=== PATIENT | female | born 1960 | race Caucasian/White ===

== ENCOUNTER 2021-08-15 00:30 | Inpatient (IN) ==
[2021-08-15] MEDS ORDERED: DILAUDID INJ IVP PRN (01:09)
[2021-08-15] MEDS ORDERED: ZOFRAN INJ 4 MG VIAL ONE (01:14)
[2021-08-15] MEDS ORDERED: D5 1/2 NS 1,000 ML 1,000 ML IV ONE (01:15)
[2021-08-15] MEDS ORDERED: DILAUDID INJ ONE ×2 (01:15→15:39)
[2021-08-15] MEDS ORDERED: NS 100 ML IV + SPIKE MINIBAG* 100 ML IV ONE (01:16)
[2021-08-15] MEDS ORDERED: ZOSYN VIAL 3.375 GRAMS IV ONE (01:16)
[2021-08-15] MEDS: ZOFRAN INJ 4 MG VIAL IVP PRN ×2 (01:34→21:35)
[2021-08-15] MEDS: D5 1/2 NS 1,000 ML 1,000 ML IV SCH ×5 (01:34→23:31)
[2021-08-15] MEDS: ZOSYN VIAL 3.375 GRAMS 3.375 G in NS 100 ML IV + SPIKE MINIBAG* 100 ML IV SCH ×4 (01:35→21:00)
[2021-08-15 02:54] VITALS: BMI 23.1
[2021-08-15 06:32] LABS: BASOPHILS % (AUTO) 0.2 % (0.2-1.0); HEMOGLOBIN 12.3 g/dL (12.0-16.0); LYMPHOCYTES # (AUTO) 0.8 X10^3/uL (1.3-2.9); LYMPHOCYTES % (AUTO) 6.6 % (21.0-51.0); MEAN CORPUSCULAR HEMOGLOBIN 33.5 pg (27.0-34.0); MEAN CORPUSCULAR HGB CONC 34.1 g/dL (33.0-35.0); MEAN CORPUSCULAR VOLUME 98.2 fL (80.0-100.0); MEAN PLATELET VOLUME 10.5 fL (7.4-11.0); MONOCYTES # (AUTO) 1.3 x10^3/uL (0.3-0.8); MONOCYTES % (AUTO) 11.1 % (0.0-13.0); NEUTROPHILS # (AUTO) 9.8 x10^3/uL (2.2-4.8); NEUTROPHILS % (AUTO) 82.1 % (42.0-75.0); RED BLOOD COUNT 3.67 X10^6/uL (3.5-5.4); RED CELL DISTRIBUTION WIDTH 15.1 % (11.6-16.5); WHITE BLOOD COUNT 11.9 X10^3/uL (3.6-10.0)
--- NOTE | 2021-08-15 06:34 | RAD ---
HISTORYFollow-up small bowel obstructionSTUDYKUBCOMPARISONCT abdomen pelvis 08/14/2021FINDINGSThere is a nasogastric tube with its tip and side hole likely within the stomach. Multiple dilated loops of small bowel are present in the mid abdomen with gas distally within the colon. Findings are consistent with partial small bowel obstruction. No abnormal masses or significant abnormal calcifications are identified. Regional skeleton is osteopenic but intact.IMPRESSIONFindings consistent with partial small bowel obstructionElectronically signed by: DEBBI ELMORE (Aug 15, 2021 06:33:00)
[2021-08-15 07:01] LABS: ALANINE AMINOTRANSFERASE 22 Units/L (12-78); ALBUMIN 2.4 g/dL (3.4-5.0); ALKALINE PHOSPHATASE 111 Units/L (46-116); ASPARTATE AMINO TRANSFERASE 20 Units/L (15-37); BLOOD UREA NITROGEN 12 mg/dL (7-18); CALCIUM 8.7 mg/dL (8.5-10.1); CARBON DIOXIDE 29.9 mmol/L (21-32); CHLORIDE 93 mmol/L (98-107); COR NA(FOR HYPERGLY) 132 mmol/L (136-145); CREATININE 0.61 mg/dL (0.55-1.02); SODIUM 130 mmol/L (136-145); TOTAL PROTEIN 5.9 g/dL (6.4-8.2); eGFR NON BLACK RACES > 60 (>60)
[2021-08-15 07:23] LABS: METAMYELOCYTES % 2; MYELOCYTES % 1; PLATELET MORPHOLOGY COMMENT NORMAL (NORMAL)
[2021-08-15] MEDS ORDERED: DUONEB 0.5 MG/3 MG (3 mL) NEB ONE ×2 (08:26→15:21)
--- NOTE | 2021-08-15 09:00 | RAD ---
HISTORYPreop small-bowel obstructionSTUDYChest AP portableCOMPARISONNoneFINDINGSThere is a nasogastric tube with its tip and side hole in the expected position of the stomach. Hypo inflation accentuates the heart size. It is likely within normal limits. Diffuse bilateral interstitial lung changes are present with areas of subsegmental atelectasis superimposed in the right perihilar region and lung bases bilaterally. No ground-glass or alveolar infiltrates are identified. No pleural effusion or pneumothorax is identified. Bony thorax is osteopenic but otherwise unremarkable.IMPRESSIONLungs hypoinflated but free of acute infiltratesBilateral areas of subsegmental atelectasis superimposed on some mild interstitial lung changes.Electronically signed by: DEBBI ELMORE (Aug 15, 2021 08:58:51)
[2021-08-15] MEDS: K-RIDER 10 MEQ/NS 100 ML 10 MEQ/100 ML BAG IV SCH ×2 (09:18→10:44)
[2021-08-15] MEDS: PROTONIX INJ 40 MG VIAL IVP SCH (09:18)
--- NOTE | 2021-08-15 12:11 | CT ---
HISTORY:Falls, head injuryStudy: CT brain without contrastComparison:NoneTechnique:Multiple axial images of the brain were obtained without administration of IV contrast. Dose reduction techniques including Automated Exposure Control (AEC) and adjustment of mA and kV were utilized.Findings:There is cerebral volume loss with nonspecific white matter hypoattenuation that can be associated with chronic microvascular ischemic changes. No evidence of acute hemorrhage, midline shift, mass effect or abnormal extra-axial fluid collection. The ventricular system is symmetric and nondilated.The soft tissues and osseous structures are unremarkable. There are postsurgical changes of the left maxillary sinus with partially visualized NG tube in place.IMPRESSION:1.No acute intracranial abnormality.Electronically signed by: JAI MISHRA (Aug 15, 2021 12:09:52)
[2021-08-15] MEDS ORDERED: DECADRON INJ ONE (12:36)
[2021-08-15] MEDS ORDERED: MAGNESIUM SULFATE 1 GRAM/100 mL PREMIX 1 G/100 ML BAG IV ONE (12:37)
[2021-08-15] MEDS ORDERED: ZEMURON 50 MG VIAL ONE (12:37)
[2021-08-15] MEDS ORDERED: NAROPIN 0.75% EPI ONE (12:37)
[2021-08-15] MEDS ORDERED: FENTANYL VIAL INJ 100 mcg ONE (12:37)
[2021-08-15] MEDS ORDERED: BRIDION ONE (12:38)
[2021-08-15] MEDS ORDERED: LR 1,000 ML IV 1,000 ML IV ONE ×2 (12:46→14:14)
[2021-08-15] MEDS ORDERED: POLYMYXIN B SULFATE ONE ×2 (12:53→14:15)
[2021-08-15] MEDS ORDERED: NEO-SYNEPHRINE INJ ONE (13:20)
[2021-08-15] MEDS ORDERED: KETAMINE HCL ONE (13:20)
[2021-08-15] MEDS ORDERED: ULTANE GAS IN ONE (13:20)
[2021-08-15] MEDS ORDERED: EPHEDRINE SULFATE INJ ONE (13:20)
[2021-08-15] MEDS ORDERED: DIPRIVAN VIAL ONE (13:20)
[2021-08-15] MEDS ORDERED: ANCEF VIAL 1 GRAM ONE (13:27)
[2021-08-15] MEDS ORDERED: VASOSTRICT INJ 20 UNITS VIAL ONE (13:42)
[2021-08-15] MEDS ORDERED: BACTROBAN TOPICAL OINT ONE (14:54)
[2021-08-15] MEDS ORDERED: PROVENTIL NEB TX 0.083% 2.5MG/ 3ML NEB ONE (15:19)
[2021-08-15] MEDS ORDERED: PHENERGAN INJ 25 MG IM PRN (15:22)
[2021-08-15] MEDS ORDERED: REGLAN INJ 10 MG VIAL IVP PRN (15:22)
[2021-08-15] MEDS ORDERED: BARHEMSYS INJ IVP PRN (15:22)
[2021-08-15] MEDS ORDERED: BENADRYL INJ 50 MG VIAL IVP PRN (15:22)
[2021-08-15] MEDS ORDERED: ZOFRAN INJ 4 MG VIAL IVP PRN (15:22)
[2021-08-15] MEDS: DILAUDID INJ IVP PRN ×4 (15:35→21:35)
[2021-08-15] MEDS ORDERED: NS 1,000 ML IV 1,000 ML IV ONE (18:12)
[2021-08-15] MEDS ORDERED: POTASSIUM CHL 40 MEQ/NS 0.45% 500 ML IV PRN (18:22)
[2021-08-15] MEDS ORDERED: POTASSIUM CHL 60 MEQ/NS 0.45% 500 ML IV PRN (18:22)
[2021-08-15] MEDS ORDERED: POTASSIUM CHLORIDE LIQ 20 MEQ UDC PO PRN (18:22)
[2021-08-15] MEDS ORDERED: KLOR-CON PO PRN (18:22)
[2021-08-15] MEDS ORDERED: MICRO K EXTEN CAP 10 MEQ PO PRN (18:22)
[2021-08-15] MEDS ORDERED: NS 1,000 ML IV 1,000 ML ONE (18:38)
[2021-08-15] MEDS ORDERED: ZOSYN VIAL 3.375 GRAMS 3.375 G in NS 100 ML IV + SPIKE MINIBAG* 100 ML IV SCH (22:00)
[2021-08-16] MEDS: DILAUDID INJ IVP PRN (02:25)
[2021-08-16] MEDS: D5 1/2 NS 1,000 ML 1,000 ML IV SCH ×3 (03:19→18:55)
[2021-08-16] MEDS: ZOSYN VIAL 3.375 GRAMS 3.375 G in NS 100 ML IV + SPIKE MINIBAG* 100 ML IV SCH ×3 (05:07→21:28)
[2021-08-16] MEDS ORDERED: ATIVAN INJ 2 MG VIAL IVP PRN (05:55)
[2021-08-16] MEDS ORDERED: ATIVAN INJ 2 MG VIAL ONE (05:58)
[2021-08-16 06:16] LABS: BASOPHILS % (AUTO) 0.2 % (0.2-1.0); EOSINOPHILS % (AUTO) 0.2 % (0.9-2.9); HEMATOCRIT 36.3 % (36.0-47.0); HEMOGLOBIN 12.2 g/dL (12.0-16.0); LYMPHOCYTES # (AUTO) 1.3 X10^3/uL (1.3-2.9); LYMPHOCYTES % (AUTO) 14.3 % (21.0-51.0); MEAN CORPUSCULAR HEMOGLOBIN 33.3 pg (27.0-34.0); MEAN CORPUSCULAR HGB CONC 33.6 g/dL (33.0-35.0); MEAN CORPUSCULAR VOLUME 99.2 fL (80.0-100.0); MEAN PLATELET VOLUME 9.7 fL (7.4-11.0); MONOCYTES # (AUTO) 1.5 x10^3/uL (0.3-0.8); MONOCYTES % (AUTO) 16.6 % (0.0-13.0); NEUTROPHILS # (AUTO) 6.1 x10^3/uL (2.2-4.8); NEUTROPHILS % (AUTO) 68.7 % (42.0-75.0); RED BLOOD COUNT 3.66 X10^6/uL (3.5-5.4); RED CELL DISTRIBUTION WIDTH 15.5 % (11.6-16.5); WHITE BLOOD COUNT 8.9 X10^3/uL (3.6-10.0)
[2021-08-16] MEDS ORDERED: NS 1,000 ML IV 1,000 ML ONE (06:24)
[2021-08-16 06:39] LABS: ALANINE AMINOTRANSFERASE 28 Units/L (12-78); ALBUMIN 2.2 g/dL (3.4-5.0); ALKALINE PHOSPHATASE 88 Units/L (46-116); ASPARTATE AMINO TRANSFERASE 40 Units/L (15-37); BLOOD UREA NITROGEN 7 mg/dL (7-18); CALCIUM 8.1 mg/dL (8.5-10.1); CARBON DIOXIDE 26.6 mmol/L (21-32); CHLORIDE 97 mmol/L (98-107); COR CA(FOR HYPOALB) 9.5 mg/dL (8.5-10.1); COR NA(FOR HYPERGLY) 134 mmol/L (136-145); CREATININE 0.74 mg/dL (0.55-1.02); MAGNESIUM 1.8 mg/dL (1.7-2.9); SODIUM 133 mmol/L (136-145); TOTAL PROTEIN 5.4 g/dL (6.4-8.2); eGFR NON BLACK RACES > 60 (>60)
[2021-08-16 07:11] LABS: BAND NEUTROPHILS % 4 % (0-10); METAMYELOCYTES % 4; MYELOCYTES % 3; PLATELET MORPHOLOGY COMMENT NORMAL (NORMAL); PROMYELOCYTES % 1
[2021-08-16 07:14] LABS: TARGET CELLS SLIGHT
[2021-08-16 07:20] LABS: STOMATOCYTES SLIGHT
[2021-08-16] MEDS ORDERED: NARCAN INJ ONE (07:27)
[2021-08-16] MEDS ORDERED: NARCAN INJ IVP NR (08:00)
[2021-08-16 08:07] LABS: ABG BASE EXCESS 2.2 mmol/L (-2.0-2.0)
[2021-08-16 08:09] LABS: ABG ALLEN TEST POS
[2021-08-16] MEDS ORDERED: MORPHINE SULFATE INJ 2 MG INJ ONE (09:18)
[2021-08-16] MEDS: MORPHINE SULFATE INJ 2 MG INJ IVP PRN ×4 (09:25→21:25)
[2021-08-16] MEDS ORDERED: TORADOL 30 MG VIAL IVP PRN (09:55)
[2021-08-16] MEDS ORDERED: TORADOL 30 MG VIAL ONE (09:57)
[2021-08-16] MEDS: PROTONIX INJ 40 MG VIAL IVP SCH (09:59)
[2021-08-16] MEDS: LOVENOX INJ 40 MG SYR SC SCH (10:00)
--- NOTE | 2021-08-16 10:12 | DR.H&P ---
H&P History & Physical for Day of: H&P Date: 08/16/21 Chief Complaint Chief Complaint: abdominal pain, N/V. Allergies Allergies Allergy/AdvReac Type Severity Reaction Status Date / Time ciprofloxacin [From Cipro] Allergy Verified 08/15/21 12:57 aspirin AdvReac Verified 08/15/21 01:19 NSAIDS (Non-Steroidal AdvReac Verified 08/15/21 01:19 Anti-Inflamma Sulfa (Sulfonamide AdvReac Verified 08/15/21 01:19 Antibiotics) [SULFA] Past Surgical History Surgical History: Cholecystectomy, Hysterectomy, Tonsillectomy and Other Family History Family Medical History: Diabetes Mellitus and Cancer Social History Does patient currently use any type of tobacco product: Yes Have you used tobacco products in the last 12 months: Yes Type of Tobacco Use: Cigarettes How many years tobacco product used: 20 Alcohol Use: None Drug Use: Prescription Drugs and Marijuana Medications Home Medications: ciprofloxacin [From Cipro] Allergy (Verified 08/15/21 12:57) aspirin Adverse Reaction (Verified 08/15/21 01:19) NSAIDS (Non-Steroidal Anti-Inflamma Adverse Reaction (Verified 08/15/21 01:19) Sulfa (Sulfonamide Antibiotics) [SULFA] Adverse Reaction (Verified 08/15/21 01:19) CONTINUE taking the following medications amlodipine 10 mg PO DAILY 08/15/21 [History] benztropine 0.5 mg PO BID 08/15/21 [History] clonazepam 0.5 mg PO BID 08/15/21 [History] cyclobenzaprine 10 mg PO TID PRN 08/15/21 [History] escitalopram oxalate 20 mg PO BID 08/15/21 [History] lisinopril 80 mg PO DAILY 08/15/21 [History] methocarbamol 750 mg PO BID 08/15/21 [History] primidone 250 mg PO QHS 08/15/21 [History] propranolol 20 mg PO BID 08/15/21 [History] trazodone 150 mg PO QHS 08/15/21 [History] ziprasidone HCl 40 mg PO BID 08/15/21 [History] Labs Result Diagrams: 08/16/21 06:00 08/16/21 06:00 Labs: 08/15/21 14:25 Abdomen Wound Culture - Preliminary 08/15/21 14:25 Abdomen Wound Gram Stain - Final 08/15/21 14:25 Abdomen Wound Culture - Preliminary Laboratory WBC 8.9 X10^3/uL (3.6-10.0) 08/16/21 06:00 RBC 3.66 X10^6/uL (3.5-5.4) 08/16/21 06:00 Hgb 12.2 g/dL (12.0-16.0) 08/16/21 06:00 Hct 36.3 % (36.0-47.0) 08/16/21 06:00 MCV 99.2 fL (80.0-100.0) 08/16/21 06:00 MCH 33.3 pg (27.0-34.0) 08/16/21 06:00 MCHC 33.6 g/dL (33.0-35.0) 08/16/21 06:00 RDW 15.5 % (11.6-16.5) 08/16/21 06:00 Plt Count 146 X10^3/uL (150.0-450.0) L 08/16/21 06:00 Plt Count Comment Decreased (ADEQUATE) A 08/16/21 06:00 MPV 9.7 fL (7.4-11.0) 08/16/21 06:00 Neut % (Auto) 68.7 % (42.0-75.0) 08/16/21 06:00 Lymph % (Auto) 14.3 % (21.0-51.0) L 08/16/21 06:00 [place] % (Auto) 16.6 % (0.0-13.0) H 08/16/21 06:00 Eos % (Auto) 0.2 % (0.9-2.9) L 08/16/21 06:00 Baso % (Auto) 0.2 % (0.2-1.0) 08/16/21 06:00 Neut # (Auto) 6.1 x10^3/uL (2.2-4.8) H 08/16/21 06:00 Lymph # (Auto) 1.3 X10^3/uL (1.3-2.9) 08/16/21 06:00 [place] # (Auto) 1.5 x10^3/uL (0.3-0.8) H 08/16/21 06:00 Eos # (Auto) 0.0 x10^3/uL (0.0-0.2) 08/16/21 06:00 Baso # (Auto) 0.0 X10^3/uL (0.0-0.1) 08/16/21 06:00 Absolute Nucleated RBC 0.2 /100WBC 08/16/21 06:00 Total Counted 100 08/16/21 06:00 Neutrophils % (Manual) 56 % (39-76) 08/16/21 06:00 Band Neutrophils % 4 % (0-10) 08/16/21 06:00 Lymphocytes % (Manual) 20 % (13-43) 08/16/21 06:00 Monocytes % (Manual) 12 % (4-9) H 08/16/21 06:00 Metamyelocytes % 4 08/16/21 06:00 Myelocytes % 3 08/16/21 06:00 Promyelocytes % 1 08/16/21 06:00 Plt Morphology Comment Normal (NORMAL) 08/16/21 06:00 RBC Morphology Abnormal (NORMAL) A 08/16/21 06:00 Target Cells Slight A 08/16/21 06:00 Stomatocytes Slight A 08/16/21 06:00 PT 12.3 SECONDS (11.8-14.3) 08/15/21 08:46 INR Target Range - 08/15/21 08:46 INR 0.96 (0.8-1.3) 08/15/21 08:46 Sample Site Rrad 08/16/21 08:00 ABG pH 7.300 (7.35-7.45) L 08/16/21 08:00 ABG pCO2 61.0 mmHg (35.0-45.0) H* 08/16/21 08:00 ABG pO2 63.0 mmHg (80.0-100.0) L 08/16/21 08:00 ABG HCO3 30.0 mmol/L (22-26) H 08/16/21 08:00 ABG O2 Saturation 89.0 % (90-100) L 08/16/21 08:00 ABG Base Excess 2.2 mmol/L (-2.0-2.0) H 08/16/21 08:00 Mac Test Pos 08/16/21 08:00 A-a Gradient 217.0 mmHg 08/16/21 08:00 FiO2 50.0 08/16/21 08:00 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1) 08/16/21 06:00 Magnesium 1.8 mg/dL (1.7-2.9) 08/16/21 06:00 Total Bilirubin 0.20 mg/dL (0.2-1.0) 08/16/21 06:00 AST 40 Units/L (15-37) H 08/16/21 06:00 ALT 28 Units/L (12-78) 08/16/21 06:00 Alkaline Phosphatase 88 Units/L (46-116) 08/16/21 06:00 Ammonia < 10 umol/L (11-32) L 08/15/21 11:39 Total Protein 5.4 g/dL (6.4-8.2) L 08/16/21 06:00 Albumin 2.2 g/dL (3.4-5.0) L 08/16/21 06:00 Globulin 3.2 g/dL (2.5-4.5) 08/16/21 06:00 Albumin/Globulin Ratio 0.7 Ratio (1.1-2.1) L 08/16/21 06:00 Urine Opiates Screen Negative (NEG=<300) 08/15/21 18:23 Urine Methadone Screen Negative (NEG=<300) 08/15/21 18:23 Ur Barbiturates Screen Positive (NEG=<200) A 08/15/21 18:23 Ur Phencyclidine Scrn Negative (NEG=<25) 08/15/21 18: Ur Amphetamines Screen Negative (NEG=<1000) 08/15/21 18:23 U Benzodiazepines Scrn Negative (NEG=<200) 08/15/21 18:23 Urine Cocaine Screen Negative (NEG=<300) 08/15/21 18:23 U Marijuana (THC) Screen Positive (NEG=<50) A 08/15/21 18:23 Tissue Pathology To follow 08/15/21 14:25 Physical Exam Vital Signs: Temperature 97.9 F Pulse Rate [Right] 112 Pulse Rate 97 Respiratory Rate 22 Blood Pressure [Right Arm] 138/69 Blood Pressure 101/56 O2 Sat by Pulse Oximetry 99
--- NOTE | 2021-08-16 10:36 | DR.CONSULT ---
CONSULT Consultation for Day of: Date: 08/16/21 Chief Complaint Chief Complaint: abdominal pain, N/V Allergies Allergies Allergy/AdvReac Type Severity Reaction Status Date / Time ciprofloxacin [From Cipro] Allergy Verified 08/15/21 12:57 aspirin AdvReac Verified 08/15/21 01:19 NSAIDS (Non-Steroidal AdvReac Verified 08/15/21 01:19 Anti-Inflamma Sulfa (Sulfonamide AdvReac Verified 08/15/21 01:19 Antibiotics) [SULFA] History of Present Illness History of Present Illness: Ms Caban is a 61y/o female with a PMH of HTN, DDD, Anxiety and Schizophrenia who was transferred from [facility]. She presented with abdominal pain, N/V/D. She was found to have small bowel obstruction but due to no beds available there, she was transferred to [place]. Dr Palma admitted the patient for further evaluation. She was taken to surgery yesterday and underwent ex-lap which showed appendicitis with abscess, SBO and abdominal adhesions. Patient had appendectomy with drainage of abscess and lysis of adhesions. She had no surgical complications. Patient's BP was noted to be low post-op and she received IV fluids. She has NGT placed and kept NPO overnight. Last night, patient was pulling out lines and tubes and trying to get out of bed. She did receive ativan. Her BP also dropped in the 70/40s and patient was extremely sleepy. She was given narcan and patient was awake. Her BP has improved now to 138/69. She is very restless in bed and trying to put all the lines and tubes. She is currently wearing a NRB as her O2 was noted to be low overnight. Dr Palma evaluated the patient this morning, orders given to remove NGT and start full liquids. Patient does take a lot of psychiatric medications and has been diagnosed with several mental health condition. Plan: follow plans as per surgery, remove NGT and start liquids. Monitor patient's BP, hold anti-hypertensives for now. Will DC Dilaudid and start morphine prn for pain control. Replace K as per protocol. Continue hydration. Continue IV zosyn. Follow cultures. Will review home medications. Monitor AM labs/imaging. Past Medical History Past Medical History: Hypertension and Schizophrenia Additional Medical History: Anxiety Chronic pain DDD Past Surgical History Surgical History: Cholecystectomy, Hysterectomy, Tonsillectomy and Other Family History Family Medical History: Diabetes Mellitus and Cancer Social History Does patient currently use any type of tobacco product: Yes Have you used tobacco products in the last 12 months: Yes Type of Tobacco Use: Cigarettes How many years tobacco product used: 20 Alcohol Use: None Drug Use: Prescription Drugs and Marijuana Medications Home Medications: ciprofloxacin [From Cipro] Allergy (Verified 08/15/21 12:57) aspirin Adverse Reaction (Verified 08/15/21 01:19) NSAIDS (Non-Steroidal Anti-Inflamma Adverse Reaction (Verified 08/15/21 01:19) Sulfa (Sulfonamide Antibiotics) [SULFA] Adverse Reaction (Verified 08/15/21 01:19) CONTINUE taking the following medications amlodipine 10 mg PO DAILY 08/15/21 [History] benztropine 0.5 mg PO BID 08/15/21 [History] clonazepam 0.5 mg PO BID 08/15/21 [History] cyclobenzaprine 10 mg PO TID PRN 08/15/21 [History] escitalopram oxalate 20 mg PO BID 08/15/21 [History] lisinopril 80 mg PO DAILY 08/15/21 [History] methocarbamol 750 mg PO BID 08/15/21 [History] primidone 250 mg PO QHS 08/15/21 [History] propranolol 20 mg PO BID 08/15/21 [History] trazodone 150 mg PO QHS 08/15/21 [History] ziprasidone HCl 40 mg PO BID 08/15/21 [History] Review of Systems Constitutional: No Symptoms Reported Eyes: No Symptoms Reported ENT: No Symptoms Reported Respiratory: Shortness of Breath Cardiovascular: No Symptoms Reported Gastrointestinal: Nausea, Vomiting, Abdominal Pain and Diarrhea Genitourinary: No Symptoms Reported Musculoskeletal: Back Pain Skin: No Symptoms Reported Neurological: Confusion Physical Exam Vital Signs: Temperature 97.9 F Pulse Rate [Right] 112 Pulse Rate 97 Respiratory Rate 22 Blood Pressure [Right Arm] 138/69 Blood Pressure 101/56 O2 Sat by Pulse Oximetry 99 Oriented: Unable to test Eyes: Normal Ear: Normal Nose: Other (NGT intact ) Throat: Dry Respiratory: Diminished Throughout Cardiovascular: Tachycardia Auscultation: Bowel Sounds: Normal Palpation: Normal Tenderness: Other (dressing intact with LANNY drain ) Skin: Decreased [place] Psychiatric: Anxiety and Agitation Mood Description: Anxious Affect: Anxious Speech Pattern: Unclear and Delayed Plan (1) Hypotension: Status: Acute Qualifiers: Hypotension type: postprocedural hypotension Qualified Code(s): I95.81 - Postprocedural hypotension (2) SBO (small bowel obstruction): Status: Acute (3) Hypokalemia: Status: Acute (4) Appendicitis with abscess: Status: Acute (5) Schizophrenia: Status: Acute Qualifiers: Schizophrenia type: unspecified Qualified Code(s): F20.9 - Schizophrenia, unspecified (6) Anxiety: Status: Acute (7) Chronic pain: Status: Acute Qualifiers: Chronic pain type: other chronic pain Qualified Code(s): G89.29 - Other chronic pain
[2021-08-16] MEDS: ATIVAN INJ 2 MG VIAL IVP PRN ×3 (12:00→18:45)
--- NOTE | 2021-08-16 13:22 | DR.PROGNOT ---
Hospital Progress Notes - Progress Note for Day of: Progress Note Date: 08/16/21 - Chief Complaint Chief Complaint: post op day 1 . laparotomy , appendectomy , drainage of appediceal abscess . was confused , agitated last night . had episodes of low BP required increasing IVF . had episodes of hypoventilation from oversedation . now she is alert and restless . - Past Medical Family Social History Past Med/Fam/Surg Hx: No changes since H&P Allergies: Allergies ciprofloxacin [From Cipro] Allergy (Verified 08/15/21 12:57) aspirin Adverse Reaction (Verified 08/15/21 01:19) NSAIDS (Non-Steroidal Anti-Inflamma Adverse Reaction (Verified 08/15/21 01:19) Sulfa (Sulfonamide Antibiotics) [SULFA] Adverse Reaction (Verified 08/15/21 01:19) - Review Of Systems ROS: No change since H&P - Vital Signs Vital Signs: Temperature 97.9 F Pulse Rate [Right] 112 Pulse Rate 97 Respiratory Rate 22 Blood Pressure [Right Arm] 138/69 Blood Pressure 101/56 O2 Sat by Pulse Oximetry 99 - Physical Exam Oriented: Not Oriented Eyes: Normal Ear: Normal Nose: Normal Throat: Normal Respiratory: Normal Cardiovascular: Normal : Normal GI:Auscultation: Decreased GI:Palpation: Normal GI: Tenderness: Diffuse (soft abdomen .with generalzed tenderness , no wound infection ) Speech Pattern: Clear, Appropriate, Delayed - Laboratory and Diagnostics Result Diagrams: 08/16/21 06:00 08/16/21 06:00 Labs: 08/15/21 14:25 Abdomen Wound Culture - Preliminary 08/15/21 14:25 Abdomen Wound Gram Stain - Final 08/15/21 14:25 Abdomen Wound Culture - Preliminary Laboratory WBC 8.9 X10^3/uL (3.6-10.0) 08/16/21 06:00 RBC 3.66 X10^6/uL (3.5-5.4) 08/16/21 06:00 Hgb 12.2 g/dL (12.0-16.0) 08/16/21 06:00 Hct 36.3 % (36.0-47.0) 08/16/21 06:00 MCV 99.2 fL (80.0-100.0) 08/16/21 06:00 MCH 33.3 pg (27.0-34.0) 08/16/21 06:00 MCHC 33.6 g/dL (33.0-35.0) 08/16/21 06:00 RDW 15.5 % (11.6-16.5) 08/16/21 06:00 Plt Count 146 X10^3/uL (150.0-450.0) L 08/16/21 06:00 Plt Count Comment Decreased (ADEQUATE) A 08/16/21 06:00 MPV 9.7 fL (7.4-11.0) 08/16/21 06:00 Neut % (Auto) 68.7 % (42.0-75.0) 08/16/21 06:00 Lymph % (Auto) 14.3 % (21.0-51.0) L 08/16/21 06:00 [place] % (Auto) 16.6 % (0.0-13.0) H 08/16/21 06:00 Eos % (Auto) 0.2 % (0.9-2.9) L 08/16/21 06:00 Baso % (Auto) 0.2 % (0.2-1.0) 08/16/21 06:00 Neut # (Auto) 6.1 x10^3/uL (2.2-4.8) H 08/16/21 06:00 Lymph # (Auto) 1.3 X10^3/uL (1.3-2.9) 08/16/21 06:00 [place] # (Auto) 1.5 x10^3/uL (0.3-0.8) H 08/16/21 06:00 Eos # (Auto) 0.0 x10^3/uL (0.0-0.2) 08/16/21 06:00 Baso # (Auto) 0.0 X10^3/uL (0.0-0.1) 08/16/21 06:00 Absolute Nucleated RBC 0.2 /100WBC 08/16/21 06:00 Total Counted 100 08/16/21 06:00 Neutrophils % (Manual) 56 % (39-76) 08/16/21 06:00 Band Neutrophils % 4 % (0-10) 08/16/21 06:00 Lymphocytes % (Manual) 20 % (13-43) 08/16/21 06:00 Monocytes % (Manual) 12 % (4-9) H 08/16/21 06:00 Metamyelocytes % 4 08/16/21 06:00 Myelocytes % 3 08/16/21 06:00 Promyelocytes % 1 08/16/21 06:00 Plt Morphology Comment Normal (NORMAL) 08/16/21 06:00 RBC Morphology Abnormal (NORMAL) A 08/16/21 06:00 Target Cells Slight A 08/16/21 06:00 Stomatocytes Slight A 08/16/21 06:00 PT 12.3 SECONDS (11.8-14.3) 08/15/21 08:46 INR Target Range - 08/15/21 08:46 INR 0.96 (0.8-1.3) 08/15/21 08:46 Sample Site Rrad 08/16/21 08:00 ABG pH 7.300 (7.35-7.45) L 08/16/21 08:00 ABG pCO2 61.0 mmHg (35.0-45.0) H* 08/16/21 08:00 ABG pO2 63.0 mmHg (80.0-100.0) L 08/16/21 08:00 ABG HCO3 30.0 mmol/L (22-26) H 08/16/21 08:00 ABG O2 Saturation 89.0 % (90-100) L 08/16/21 08:00 ABG Base Excess 2.2 mmol/L (-2.0-2.0) H 08/16/21 08:00 Mac Test Pos 08/16/21 08:00 A-a Gradient 217.0 mmHg 08/16/21 08:00 FiO2 50.0 08/16/21 08:00 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, 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 08/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 08:00 Sodium 133 mmol/L (136-145) L 08/16/21 06:00 Corrected Sodium 134 mmol/L (136-145) L 08/16/21 06:00 Potassium 3.0 mmol/L (3.5-5.1) L* 08/16/21 06:00 Chloride 97 mmol/L (98-107) L 08/16/21 06:00 Carbon Dioxide 26.6 mmol/L (21-32) 08/16/21 06:00 BUN 7 mg/dL (7-18) 08/16/21 06:00 Creatinine 0.74 mg/dL (0.55-1.02) 08/16/21 06:00 Est GFR (MDRD) Af Amer > 60 (>60) 08/16/21 06:00 Est GFR (MDRD) Non-Af > 60 (>60) 08/16/21 06:00 Glucose 133 mg/dL (65-99) H 08/16/21 06:00 Calcium 8.1 mg/dL (8.5-10.1) L 08/16/21 06:00 Corrected Calcium 9.5 mg/dL (8.5-10.1) 08/16/21 06:00 Magnesium 1.8 mg/dL (1.7-2.9) 08/16/21 06:00 Total Bilirubin 0.20 mg/dL (0.2-1.0) 08/16/21 06:00 AST 40 Units/L (15-37) H 08/16/21 06:00 ALT 28 Units/L (12-78) 08/16/21 06:00 Alkaline Phosphatase 88 Units/L (46-116) 08/16/21 06:00 Ammonia < 10 umol/L (11-32) L 08/15/21 11:39 Total Protein 5.4 g/dL (6.4-8.2) L 08/16/21 06:00 Albumin 2.2 g/dL (3.4-5.0) L 08/16/21 06:00 Globulin 3.2 g/dL (2.5-4.5) 08/16/21 06:00 Albumin/Globulin Ratio 0.7 Ratio (1.1-2.1) L 08/16/21 06:00 Urine Opiates Screen Negative (NEG=<300) 08/15/21 18: Urine Methadone Screen Negative (NEG=<300) 08/15/21 18:23 Ur Barbiturates Screen Positive (NEG=<200) A 08/15/21 18:23 Ur Phencyclidine Scrn Negative (NEG=<25) 08/15/21 18: Ur Amphetamines Screen Negative (NEG=<1000) 08/15/21 18: U Benzodiazepines Scrn Negative (NEG=<200) 08/15/21 18: Urine Cocaine Screen Negative (NEG=<300) 08/15/21 18:23 U Marijuana (THC) Screen Positive (NEG=<50) A 08/15/21 18:23 Tissue Pathology To follow 08/15/21 14:25 - Assessment and Plan 1: acute ruptured appedicitis with RLQ abscess . SBO, abdominal adhesions . depression and anxiety . Schizophrenia . to D/C NGT . full liquid diet . same IV ABT
[2021-08-16] MEDS ORDERED: HALDOL INJ IM PRN (16:09)
[2021-08-16] MEDS ORDERED: HALDOL INJ ONE (16:44)
[2021-08-16] MEDS ORDERED: LEXAPRO ONE (21:04)
[2021-08-16] MEDS: GEODON PO SCH (21:25)
[2021-08-16] MEDS: MYSOLINE TAB 250 MG PO SCH (21:26)
[2021-08-16] MEDS: COGENTIN TAB 1 MG PO SCH (21:26)
[2021-08-16] MEDS: LEXAPRO PO SCH (21:27)
[2021-08-17] MEDS: ATIVAN INJ 2 MG VIAL IVP PRN ×2 (01:03→22:42)
[2021-08-17] MEDS: MORPHINE SULFATE INJ 2 MG INJ IVP PRN (01:30)
[2021-08-17] MEDS: D5 1/2 NS 1,000 ML 1,000 ML IV SCH ×4 (02:37→17:32)
[2021-08-17] MEDS: HALDOL INJ IVP PRN ×2 (04:38→10:00)
[2021-08-17] MEDS ORDERED: DILAUDID INJ ONE (04:45)
[2021-08-17] MEDS: DILAUDID INJ IVP PRN ×5 (04:50→19:28)
[2021-08-17] MEDS: ZOSYN VIAL 3.375 GRAMS 3.375 G in NS 100 ML IV + SPIKE MINIBAG* 100 ML IV SCH ×3 (05:36→22:43)
[2021-08-17 06:12] LABS: BASOPHILS % (AUTO) 0.1 % (0.2-1.0); EOSINOPHILS % (AUTO) 0.1 % (0.9-2.9); HEMATOCRIT 30.9 % (36.0-47.0); HEMOGLOBIN 10.4 g/dL (12.0-16.0); LYMPHOCYTES % (AUTO) 8.3 % (21.0-51.0); MEAN CORPUSCULAR HEMOGLOBIN 32.9 pg (27.0-34.0); MEAN CORPUSCULAR HGB CONC 33.7 g/dL (33.0-35.0); MEAN CORPUSCULAR VOLUME 97.7 fL (80.0-100.0); MEAN PLATELET VOLUME 9.8 fL (7.4-11.0); MONOCYTES # (AUTO) 1.6 x10^3/uL (0.3-0.8); MONOCYTES % (AUTO) 13.4 % (0.0-13.0); NEUTROPHILS # (AUTO) 9.1 x10^3/uL (2.2-4.8); NEUTROPHILS % (AUTO) 78.1 % (42.0-75.0); RED BLOOD COUNT 3.17 X10^6/uL (3.5-5.4); RED CELL DISTRIBUTION WIDTH 15.1 % (11.6-16.5); WHITE BLOOD COUNT 11.6 X10^3/uL (3.6-10.0)
[2021-08-17 06:23] LABS: ALANINE AMINOTRANSFERASE 52 Units/L (12-78); ALBUMIN 2.1 g/dL (3.4-5.0); ALKALINE PHOSPHATASE 85 Units/L (46-116); ASPARTATE AMINO TRANSFERASE 78 Units/L (15-37); BLOOD UREA NITROGEN 3 mg/dL (7-18); CALCIUM 8.2 mg/dL (8.5-10.1); CHLORIDE 98 mmol/L (98-107); COR CA(FOR HYPOALB) 9.7 mg/dL (8.5-10.1); CREATININE 0.49 mg/dL (0.55-1.02); SODIUM 133 mmol/L (136-145); TOTAL PROTEIN 5.2 g/dL (6.4-8.2); eGFR NON BLACK RACES > 60 (>60)
[2021-08-17 07:11] LABS: PLATELET MORPHOLOGY COMMENT NORMAL (NORMAL)
[2021-08-17] MEDS ORDERED: LEXAPRO ONE (08:01)
[2021-08-17] MEDS: LOVENOX INJ 40 MG SYR SC SCH (08:38)
[2021-08-17] MEDS: GEODON PO SCH ×2 (08:38→21:12)
[2021-08-17] MEDS: COGENTIN TAB 1 MG PO SCH ×2 (08:38→21:12)
[2021-08-17] MEDS: PROTONIX INJ 40 MG VIAL IVP SCH (08:39)
[2021-08-17] MEDS: LEXAPRO PO SCH ×2 (08:39→21:13)
[2021-08-17 09:47] LABS: MAGNESIUM 1.8 mg/dL (1.7-2.9)
--- NOTE | 2021-08-17 13:03 | PCM.PROG ---
Progress Note Progress Note for Day of Date of Exam: 08/17/21 Subjective Subjective: Patient seen at bedside, overnight patient continued to be restless and agitated. She was puller her IV and was removing her abdominal dressing. She received multiple doses of IV morphine, ativan and haldol. Patient continues to state that her abdomen is hurting. She is thrashing around in bed. She is currently in restraints. She remains on venti-mask. Labs/imaging reviewed Plan: checked lactic acid which was normal. Will get a CTAP to assess further as patient continues to complain of abdominal pain despite getting pain medicine. Replace K as per protocol. Continue hydration. Continue IV Zosyn, wound Cx growing Gram neg rods. Monitor cultures. Wean O2 as tolerated to keep sats > 92%. Continue dressing change as per surgery. Monitor AM labs/imaging. Time spent for clinical assessment, physical exam, reviewing labs/imaging, decision making and documentation greater than 45 mins. Past Medical Family Social History Past Med/Fam/Surg Hx: No changes since H&P Allergies: Allergies ciprofloxacin [From Cipro] Allergy (Verified 08/15/21 12:57) aspirin Adverse Reaction (Verified 08/15/21 01:19) NSAIDS (Non-Steroidal Anti-Inflamma Adverse Reaction (Verified 08/15/21 01:19) Sulfa (Sulfonamide Antibiotics) [SULFA] Adverse Reaction (Verified 08/15/21 01:19) Review of Systems ROS: No change since H&P Vital Signs and I&O's Vital Signs: Temperature 98.9 F Pulse Rate [Right] 111 Pulse Rate 97 Respiratory Rate 24 Blood Pressure [Left Arm] 145/65 Blood Pressure [Right Arm] 126/66 Blood Pressure 101/56 O2 Sat by Pulse Oximetry 89 Intake and Output: Intake & Output 08/14/21 08/15/21 08/16/21 08/17/21 23:59 23:59 23:59 23:59 Intake Total 4956 / 4956 1675 / 1675 100 / 100 Output Total 2997 / 3063 1904 / 1904 150 / 150 Balance 1958 / 1892 -229 / -229 -50 / -50 Physical Exam Oriented: Unable to test Eyes: Normal Ear: Normal Nose: Normal Throat: Dry Respiratory: Generalized and Diminished Cardiovascular: Tachycardia Auscultation: Bowel Sounds: Decreased Tenderness: Diffuse, Mild and Other (sutures inctact, no surrounding erythema ); negative Guarding and Rigidity Skin: Decreased Turgur Psychiatric: Anxiety and Agitation Mood Description: Anxious Affect: Anxious Speech Pattern: Unclear, Inappropriate and Excessive Laboratory and Diagnostics Result Diagrams: 08/17/21 05:30 08/17/21 05:30 Labs: 08/15/21 14:25 Abdomen Wound Culture - Preliminary 08/15/21 14:25 Abdomen Wound Gram Stain - Final 08/15/21 14:25 Abdomen Wound Culture - Preliminary Laboratory WBC 11.6 X10^3/uL (3.6-10.0) H 08/17/21 05:30 RBC 3.17 X10^6/uL (3.5-5.4) L 08/17/21 05:30 Hgb 10.4 g/dL (12.0-16.0) L 08/17/21 05:30 Hct 30.9 % (36.0-47.0) L 08/17/21 05:30 MCV 97.7 fL (80.0-100.0) 08/17/21 05:30 MCH 32.9 pg (27.0-34.0) 08/17/21 05:30 MCHC 33.7 g/dL (33.0-35.0) 08/17/21 05:30 RDW 15.1 % (11.6-16.5) 08/17/21 05:30 Plt Count 144 X10^3/uL (150.0-450.0) L 08/17/21 05:30 Plt Count Comment Adequate (ADEQUATE) 08/17/21 05:30 MPV 9.8 fL (7.4-11.0) 08/17/21 05:30 Neut % (Auto) 78.1 % (42.0-75.0) H 08/17/21 05:30 Lymph % (Auto) 8.3 % (21.0-51.0) L 08/17/21 05:30 [place] % (Auto) 13.4 % (0.0-13.0) H 08/17/21 05:30 Eos % (Auto) 0.1 % (0.9-2.9) L 08/17/21 05:30 Baso % (Auto) 0.1 % (0.2-1.0) L 08/17/21 05:30 Neut # (Auto) 9.1 x10^3/uL (2.2-4.8) H 08/17/21 05:30 Lymph # (Auto) 1.0 X10^3/uL (1.3-2.9) L 08/17/21 05:30 [place] # (Auto) 1.6 x10^3/uL (0.3-0.8) H 08/17/21 05:30 Eos # (Auto) 0.0 x10^3/uL (0.0-0.2) 08/17/21 05:30 Baso # (Auto) 0.0 X10^3/uL (0.0-0.1) 08/17/21 05:30 Absolute Nucleated RBC 0.1 /100WBC 08/17/21 05:30 Total Counted 100 08/17/21 05:30 Neutrophils % (Manual) 85 % (39-76) H 08/17/21 05:30 Band Neutrophils % 4 % (0-10) 08/16/21 06:00 Lymphocytes % (Manual) 5 % (13-43) L 08/17/21 05:30 Monocytes % (Manual) 10 % (4-9) H 08/17/21 05:30 Metamyelocytes % 4 08/16/21 06:00 Myelocytes % 3 08/16/21 06:00 Promyelocytes % 1 08/16/21 06:00 Plt Morphology Comment Normal (NORMAL) 08/17/21 05:30 RBC Morphology Normal (NORMAL) 08/17/21 05:30 Target Cells Slight A 08/16/21 06:00 Stomatocytes Slight A 08/16/21 06:00 PT 12.3 SECONDS (11.8-14.3) 08/15/21 08:46 INR Target Range - 08/15/21 08:46 INR 0.96 (0.8-1.3) 08/15/21 08:46 Sample Site Rrad 08/16/21 08:00 ABG pH 7.300 (7.35-7.45) L 08/16/21 08:00 ABG pCO2 61.0 mmHg (35.0-45.0) H* 08/16/21 08:00 ABG pO2 63.0 mmHg (80.0-100.0) L 08/16/21 08:00 ABG HCO3 30.0 mmol/L (22-26) H 08/16/21 08:00 ABG O2 Saturation 89.0 % (90-100) L 08/16/21 08:00 ABG Base Excess 2.2 mmol/L (-2.0-2.0) H 08/16/21 08:00 Mac Test Pos 08/16/21 08:00 A-a Gradient 217.0 mmHg 08/16/21 08:00 FiO2 50.0 08/16/21 08:00 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, 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 08/16/21 08:00 Sodium 133 mmol/L (136-145) L 08/17/21 05:30 Corrected Sodium TNP 08/17/21 05:30 Potassium 3.1 mmol/L (3.5-5.1) L 08/17/21 05:30 Chloride 98 mmol/L (98-107) 08/17/21 05:30 Carbon Dioxide 26.0 mmol/L (21-32) 08/17/21 05:30 BUN 3 mg/dL (7-18) L 08/17/21 05:30 Creatinine 0.49 mg/dL (0.55-1.02) L 08/17/21 05:30 Est GFR (MDRD) Af Amer > 60 (>60) 08/17/21 05:30 Est GFR (MDRD) Non-Af > 60 (>60) 08/17/21 05:30 Glucose 102 mg/dL (65-99) H 08/17/21 05:30 Lactic Acid 1.0 mmol/L (0.4-2.0) 08/17/21 09:33 Calcium 8.2 mg/dL (8.5-10.1) L 08/17/21 05:30 Corrected Calcium 9.7 mg/dL (8.5-10.1) 08/17/21 05:30 Magnesium 1.8 mg/dL (1.7-2.9) 08/17/21 09:33 Total Bilirubin 0.50 mg/dL (0.2-1.0) 08/17/21 05:30 AST 78 Units/L (15-37) H 08/17/21 05:30 ALT 52 Units/L (12-78) 08/17/21 05:30 Alkaline Phosphatase 85 Units/L (46-116) 08/17/21 05:30 Ammonia < 10 umol/L (11-32) L 08/15/21 11:39 Total Protein 5.2 g/dL (6.4-8.2) L 08/17/21 05:30 Albumin 2.1 g/dL (3.4-5.0) L 08/17/21 05:30 Globulin 3.1 g/dL (2.5-4.5) 08/17/21 05:30 Albumin/Globulin Ratio 0.7 Ratio (1.1-2.1) L 08/17/21 05:30 Urine Opiates Screen Negative (NEG=<300) 08/15/21 18:23 Urine Methadone Screen Negative (NEG=<300) 08/15/21 18:23 Ur Barbiturates Screen Positive (NEG=<200) A 08/15/21 18:23 Ur Phencyclidine Scrn Negative (NEG=<25) 08/15/21 18:23 Ur Amphetamines Screen Negative (NEG=<1000) 08/15/21 18:23 U Benzodiazepines Scrn Negative (NEG=<200) 08/15/21 18:23 Urine Cocaine Screen Negative (NEG=<300) 08/15/21 18:23 U Marijuana (THC) Screen Positive (NEG=<50) A 08/15/21 18:23 Tissue Pathology To follow 08/15/21 14:25 Plan (1) Agitation: Status: Acute (2) Hypotension: Status: Acute Qualifiers: Hypotension type: postprocedural hypotension Qualified Code(s): I95.81 - Postprocedural hypotension (3) SBO (small bowel obstruction): Status: Acute (4) Hypokalemia: Status: Acute (5) Appendicitis with abscess: Status: Acute (6) Schizophrenia: Status: Acute Qualifiers: Schizophrenia type: unspecified Qualified Code(s): F20.9 - Schizophrenia, unspecified (7) Anxiety: Status: Acute (8) Chronic pain: Status: Acute Qualifiers: Chronic pain type: other chronic pain Qualified Code(s): G89.29 - Other chronic pain
[2021-08-17] MEDS ORDERED: ATIVAN INJ 2 MG VIAL IVP ONE (14:22)
--- NOTE | 2021-08-17 15:42 | CT ---
EXAM: CT ABDOMEN AND PELVIS WITH INTRAVENOUS CONTRASTHISTORY: Postoperative small bowel obstruction. Worsening abdominal pain.TECHNIQUE: Spiral axial CT images are obtained through the abdomen and pelvis with the administration of oral contrast and intravenous contrast. Additional coronal and sagittal reformatted images are reconstructed.DOSIMETRY: Total DLP 526.2 mGycm; CTDI 247.4 mGyCOMPARISON: KUB dated August 15, 2021.FINDINGS:GASTROINTESTINAL TRACT: The administered oral contrast is seen within the small bowel loops and right/transverse/left colon at the time of the scan. There is in the air and fluid-filled distended stomach and up to 4.8 cm dilated air-filled proximal small bowel loops (predominantly in the left abdomen), with relatively collapsed middle and distal small bowel loops; DDx includes focal postoperative ileus, and partial middle small bowel obstruction in the appropriate clinical setting. Recommend clinical correlation and appropriate follow-up evaluation to assess interval change. There is an approximately 5.5 cm CC by 2.8 cm transverse by 2.6 cm AP area of eccentric cecal wall thickening; DDx includes (but is not limited to) neoplastic disease and focal infectious process/typhlitis (versus fecal material mimicking a colonic wall lesion). Axial image 48?56; coronal image 16?25. Clinical correlation is advised. No evidence for bowel herniation, appendicitis, or diverticulitis.GENITOURINARY SYSTEM: The kidneys are unremarkable. There is no ureteral calculus or stigmata of obstructive uropathy. A Rivera balloon catheter is noted within a collapsed urinary bladder.CT ABDOMEN: Status post recent midline laparotomy with skin timoteo in situ; no incisional dehiscence or hematoma seen. Status post cholecystectomy. Aortoiliac atherosclerotic disease, without aneurysm formation or dissection. The liver, spleen, pancreas, adrenal glands, and inferior vena cava are within normal limits for a CT scan. There is no intra-abdominal or retroperitoneal lymphadenopathy, free fluid, or free air seen. No abdominal herniation is noted. Diffuse subcutaneous soft tissue edema; rule out third spacing secondary to hypoalbuminemia or hypervolemia.CT PELVIS: No pelvic sidewall or inguinal lymphadenopathy is seen. No inguinal herniation is noted. No free fluid or free air is seen.BONES AND JOINTS: There are multiple chronic wedge compression fractures throughout the distal thoracic and lumbar spine. Status post vertebroplasty at levels T11 and L1 vertebral bodies. The visualized bony structures are otherwise within normal limits.LUNG BASES: There is a small left pleural effusion and a trace right pleural effusion. There multifocal patchy groundglass parenchymal infiltrate seen in the midline lower lung kendall which could represent atelectasis and/or pneumonia (e.g. Covid pneumonia) in the appropriate clinical setting.IMPRESSION:1. The administered oral contrast is seen within the small bowel loops and right/transverse/left colon at the time of the scan.2. Air and fluid-filled distended stomach and up to 4.8 cm dilated air-filled proximal small bowel loops (predominantly in the left abdomen), with relatively collapsed middle and distal small bowel loops; DDx includes focal postoperative ileus, and partial middle small bowel obstruction in the appropriate clinical setting. Recommend clinical correlation and appropriate follow-up evaluation to assess interval change.3. Approximately 5.5 cm CC by 2.8 cm transverse by 2.6 cm AP area of eccentric cecal wall thickening; DDx includes (but is not limited to) neoplastic disease and focal infectious process/typhlitis (versus fecal material mimicking a colonic wall lesion). Axial image 48?56; coronal image 16?25. Clinical correlation is advised.4. No evidence for bowel herniation, appendicitis, or diverticulitis.5. No evidence for pyelonephritis, renal stone disease or obstructive uropathy.6. No free fluid, free air, mass lesions, or lymphadenopathy seen.7. Diffuse subcutaneous soft tissue edema; rule out third spacing secondary to hypoalbuminemia or hypervolemia.8. Small left pleural effusion and a trace right pleural effusion.9. Multifocal patchy groundglass parenchymal infiltrate seen in the midline lower lung kendall which could represent atelectasis and/or pneumonia (e.g. Covid pneumonia) in the appropriate clinical setting.Electronically signed by: Chen Llanes (Aug 17, 2021 15:40:33)
[2021-08-17] MEDS: MAGNESIUM SULFATE 1 GRAM/100 mL PREMIX 1 G/100 ML BAG IV PRN ×2 (16:59→20:05)
[2021-08-17] MEDS: NICOTINE PATCH TD SCH (17:32)
[2021-08-17] MEDS: MYSOLINE TAB 250 MG PO SCH (21:13)
[2021-08-17] MEDS: K-RIDER 10 MEQ/NS 100 ML 10 MEQ/100 ML BAG IV PRN ×2 (21:23→23:19)
[2021-08-18] MEDS: DILAUDID INJ IVP PRN ×5 (00:09→21:38)
[2021-08-18] MEDS: K-RIDER 10 MEQ/NS 100 ML 10 MEQ/100 ML BAG IV PRN ×3 (00:48→18:21)
[2021-08-18] MEDS: D5 1/2 NS 1,000 ML 1,000 ML IV SCH ×3 (02:07→18:21)
[2021-08-18] MEDS: HALDOL INJ IVP PRN ×2 (02:08→10:34)
[2021-08-18 06:14] LABS: BASOPHILS % (AUTO) 0.2 % (0.2-1.0); HEMATOCRIT 30.7 % (36.0-47.0); HEMOGLOBIN 10.5 g/dL (12.0-16.0); LYMPHOCYTES # (AUTO) 0.9 X10^3/uL (1.3-2.9); LYMPHOCYTES % (AUTO) 6.1 % (21.0-51.0); MEAN CORPUSCULAR HEMOGLOBIN 33.1 pg (27.0-34.0); MEAN CORPUSCULAR HGB CONC 34.4 g/dL (33.0-35.0); MEAN CORPUSCULAR VOLUME 96.3 fL (80.0-100.0); MEAN PLATELET VOLUME 9.3 fL (7.4-11.0); MONOCYTES # (AUTO) 1.4 x10^3/uL (0.3-0.8); MONOCYTES % (AUTO) 9.4 % (0.0-13.0); NEUTROPHILS # (AUTO) 12.3 x10^3/uL (2.2-4.8); NEUTROPHILS % (AUTO) 84.3 % (42.0-75.0); RED BLOOD COUNT 3.19 X10^6/uL (3.5-5.4); RED CELL DISTRIBUTION WIDTH 14.9 % (11.6-16.5); WHITE BLOOD COUNT 14.6 X10^3/uL (3.6-10.0)
[2021-08-18] MEDS: ZOSYN VIAL 3.375 GRAMS 3.375 G in NS 100 ML IV + SPIKE MINIBAG* 100 ML IV SCH ×3 (06:15→21:06)
[2021-08-18 06:28] LABS: BLOOD UREA NITROGEN 3 mg/dL (7-18); CALCIUM 8.6 mg/dL (8.5-10.1); CHLORIDE 94 mmol/L (98-107); COR NA(FOR HYPERGLY) 133 mmol/L (136-145); SODIUM 133 mmol/L (136-145); eGFR NON BLACK RACES > 60 (>60)
[2021-08-18 07:02] LABS: PLATELET MORPHOLOGY COMMENT NORMAL (NORMAL)
[2021-08-18] MEDS: ATIVAN INJ 2 MG VIAL IVP PRN ×3 (07:35→22:43)
[2021-08-18] MEDS: GEODON PO SCH (09:03)
[2021-08-18] MEDS: COGENTIN TAB 1 MG PO SCH (09:03)
[2021-08-18] MEDS: LEXAPRO PO SCH (09:03)
[2021-08-18] MEDS: LOVENOX INJ 40 MG SYR SC SCH (10:16)
[2021-08-18] MEDS: NICOTINE PATCH TD SCH (10:17)
[2021-08-18] MEDS: PROTONIX INJ 40 MG VIAL IVP SCH (10:20)
--- NOTE | 2021-08-18 13:19 | PCM.PROG ---
Progress Note Progress Note for Day of Date of Exam: 08/18/21 Subjective Subjective: Patient seen at bedside, overnight patient continued to be restless and agitated. Increased dose of ativan 2mg did help her rest a bit. She had CTAP done yesterday which showed Air and fluid-filled distended stomach and up to 4.8 cm dilated air-filled proximal small bowel loops with relatively collapsed middle and distal small bowel loops; DDx includes focal postoperative ileus, and partial middle small bowel obstruction in the appropriate clinical setting. Patient has not had any N/V/D. She was kept NPO yesterday. She had a normal BM this morning. It also showed eccentric cecal wall thickening; DDx includes neoplastic disease and focal infectious process/typhlitis. Patient has been getting Zosyn. Wound Cx showed Pseudomonas and Enterobacter both sensitive to IV Zosyn. She is currently in restraints. She remains on venti-mask. Patient had a neg covid test in [place] [facility]. Repeat rapid covid test done here yesterday was also negative. Labs/imaging reviewed Plan: Follow up KUB this morning. Continue NPO status. Replace K as per protocol. Continue hydration. Continue IV Zosyn. Wean O2 as tolerated to keep sats > 92%.Continue nebs prn. Continue dressing change as per surgery. Will increase ativan to 2 mg prn. Continue haldol and Dilaudud prn. Monitor AM labs/imaging. Time spent for clinical assessment, physical exam, reviewing labs/imaging, decision making and documentation greater than 45 mins. Past Medical Family Social History Past Med/Fam/Surg Hx: No changes since H&P Allergies: Allergies ciprofloxacin [From Cipro] Allergy (Verified 08/15/21 12:57) aspirin Adverse Reaction (Verified 08/15/21 01:19) NSAIDS (Non-Steroidal Anti-Inflamma Adverse Reaction (Verified 08/15/21 01:19) Sulfa (Sulfonamide Antibiotics) [SULFA] Adverse Reaction (Verified 08/15/21 01:19) Review of Systems ROS: No change since H&P Vital Signs and I&O's Vital Signs: Temperature 98.3 F Pulse Rate [Right] 111 Pulse Rate 97 Respiratory Rate 20 Blood Pressure [Left Arm] 160/85 Blood Pressure [Right Arm] 126/66 Blood Pressure 101/56 O2 Sat by Pulse Oximetry 88 Intake and Output: Intake & Output 08/15/21 08/16/21 08/17/21 08/18/21 23:59 23:59 23:59 23:59 Intake Total 4956 / 4956 1675 / 1675 1480 / 1480 0 / 0 Output Total 2997 / 3063 1904 / 1904 750 / 750 200 / 200 Balance 1959 / 1893 -229 / -229 730 / 730 -200 / -200 Physical Exam Oriented: Unable to test Eyes: Normal Ear: Normal Nose: Normal Throat: Dry Respiratory: Generalized and Diminished Cardiovascular: Tachycardia Auscultation: Bowel Sounds: Decreased Tenderness: Diffuse, Epigastric, Mild and Other (majority of timoteo intact, no surrounding erythema, soft abdomen ); negative Guarding and Rigidity Skin: Decreased Turgur Psychiatric: Anxiety and Agitation Mood Description: Anxious Affect: Anxious Speech Pattern: Unclear, Inappropriate and Excessive Laboratory and Diagnostics Result Diagrams: 08/18/21 05:26 08/18/21 05:26 Labs: 08/15/21 14:25 Abdomen Wound Gram Stain - Final 08/15/21 14:25 Abdomen Wound Culture - Final Enterobacter Aerogenes 08/15/21 14:25 Abdomen Wound Culture - Final Pseudomonas Aeruginosa Laboratory WBC 14.6 X10^3/uL (3.6-10.0) H 08/18/21 05:26 RBC 3.19 X10^6/uL (3.5-5.4) L 08/18/21 05:26 Hgb 10.5 g/dL (12.0-16.0) L 08/18/21 05:26 Hct 30.7 % (36.0-47.0) L 08/18/21 05:26 MCV 96.3 fL (80.0-100.0) 08/18/21 05:26 MCH 33.1 pg (27.0-34.0) 08/18/21 05:26 MCHC 34.4 g/dL (33.0-35.0) 08/18/21 05:26 RDW 14.9 % (11.6-16.5) 08/18/21 05:26 Plt Count 225 X10^3/uL (150.0-450.0) 08/18/21 05:26 Plt Count Comment Adequate (ADEQUATE) 08/18/21 05:26 MPV 9.3 fL (7.4-11.0) 08/18/21 05:26 Neut % (Auto) 84.3 % (42.0-75.0) H 08/18/21 05:26 Lymph % (Auto) 6.1 % (21.0-51.0) L 08/18/21 05:26 [place] % (Auto) 9.4 % (0.0-13.0) 08/18/21 05:26 Eos % (Auto) 0.0 % (0.9-2.9) L 08/18/21 05:26 Baso % (Auto) 0.2 % (0.2-1.0) 08/18/21 05:26 Neut # (Auto) 12.3 x10^3/uL (2.2-4.8) H 08/18/21 05:26 Lymph # (Auto) 0.9 X10^3/uL (1.3-2.9) L 08/18/21 05:26 [place] # (Auto) 1.4 x10^3/uL (0.3-0.8) H 08/18/21 05:26 Eos # (Auto) 0.0 x10^3/uL (0.0-0.2) 08/18/21 05:26 Baso # (Auto) 0.0 X10^3/uL (0.0-0.1) 08/18/21 05:26 Absolute Nucleated RBC 0.0 /100WBC 08/18/21 05:26 Total Counted 100 08/18/21 05:26 Neutrophils % (Manual) 89 % (39-76) H 08/18/21 05:26 Band Neutrophils % 4 % (0-10) 08/16/21 06:00 Lymphocytes % (Manual) 5 % (13-43) L 08/18/21 05:26 Monocytes % (Manual) 6 % (4-9) 08/18/21 05:26 Metamyelocytes % 4 08/16/21 06:00 Myelocytes % 3 08/16/21 06:00 Promyelocytes % 1 08/16/21 06:00 Plt Morphology Comment Normal (NORMAL) 08/18/21 05:26 RBC Morphology Normal (NORMAL) 08/18/21 05:26 Target Cells Slight A 08/16/21 06:00 Stomatocytes Slight A 08/16/21 06:00 PT 12.3 SECONDS (11.8-14.3) 08/15/21 08:46 INR Target Range - 08/15/21 08:46 INR 0.96 (0.8-1.3) 08/15/21 08:46 Sample Site Rrad 08/16/21 08:00 ABG pH 7.300 (7.35-7.45) L 08/16/21 08:00 ABG pCO2 61.0 mmHg (35.0-45.0) H* 08/16/21 08:00 ABG pO2 63.0 mmHg (80.0-100.0) L 08/16/21 08:00 ABG HCO3 30.0 mmol/L (22-26) H 08/16/21 08:00 ABG O2 Saturation 89.0 % (90-100) L 08/16/21 08:00 ABG Base Excess 2.2 mmol/L (-2.0-2.0) H 08/16/21 08:00 Mac Test Pos 08/16/21 08:00 A-a Gradient 217.0 mmHg 08/16/21 08:00 FiO2 50.0 08/16/21 08:00 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, 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 08/16/21 08:00 Sodium 133 mmol/L (136-145) L 08/18/21 05:26 Corrected Sodium 133 mmol/L (136-145) L 08/18/21 05:26 Potassium 3.4 mmol/L (3.5-5.1) L 08/18/21 05:26 Chloride 94 mmol/L (98-107) L 08/18/21 05:26 Carbon Dioxide 25.0 mmol/L (21-32) 08/18/21 05:26 BUN 3 mg/dL (7-18) L 08/18/21 05:26 Creatinine 0.60 mg/dL (0.55-1.02) 08/18/21 05:26 Est GFR (MDRD) Af Amer > 60 (>60) 08/18/21 05:26 Est GFR (MDRD) Non-Af > 60 (>60) 08/18/21 05:26 Glucose 120 mg/dL (65-99) H 08/18/21 05:26 Lactic Acid 1.0 mmol/L (0.4-2.0) 08/17/21 09:33 Calcium 8.6 mg/dL (8.5-10.1) 08/18/21 05:26 Corrected Calcium 9.7 mg/dL (8.5-10.1) 08/17/21 05:30 Magnesium 1.8 mg/dL (1.7-2.9) 08/18/21 05:26 Total Bilirubin 0.50 mg/dL (0.2-1.0) 08/17/21 05:30 AST 78 Units/L (15-37) H 08/17/21 05:30 ALT 52 Units/L (12-78) 08/17/21 05:30 Alkaline Phosphatase 85 Units/L (46-116) 08/17/21 05:30 Ammonia < 10 umol/L (11-32) L 08/15/21 11:39 Total Protein 5.2 g/dL (6.4-8.2) L 08/17/21 05:30 Albumin 2.1 g/dL (3.4-5.0) L 08/17/21 05:30 Globulin 3.1 g/dL (2.5-4.5) 08/17/21 05:30 Albumin/Globulin Ratio 0.7 Ratio (1.1-2.1) L 08/17/21 05:30 Urine Opiates Screen Negative (NEG=<300) 08/15/21 18:23 Urine Methadone Screen Negative (NEG=<300) 08/15/21 18:23 Ur Barbiturates Screen Positive (NEG=<200) A 08/15/21 18:23 Ur Phencyclidine Scrn Negative (NEG=<25) 08/15/21 18:23 Ur Amphetamines Screen Negative (NEG=<1000) 08/15/21 18:23 U Benzodiazepines Scrn Negative (NEG=<200) 08/15/21 18:23 Urine Cocaine Screen Negative (NEG=<300) 08/15/21 18:23 U Marijuana (THC) Screen Positive (NEG=<50) A 08/15/21 18:23 SARS CoV-2 RNA Rapid LAVERN Negative (NEGATIVE) 08/17/21 22:30 Tissue Pathology To follow 08/15/21 14:25 Plan (1) Pneumonia: Status: Acute Qualifiers: Laterality: bilateral Lung location: lower lobe of lung Pneumonia type: due to unspecified organism Qualified Code(s): J18.9 - Pneumonia, unspecified organism (2) Agitation: Status: Acute (3) SBO (small bowel obstruction): Status: Acute (4) Hypokalemia: Status: Acute (5) Appendicitis with abscess: Status: Acute (6) Schizophrenia: Status: Acute Qualifiers: Schizophrenia type: unspecified Qualified Code(s): F20.9 - Schizophrenia, unspecified (7) Anxiety: Status: Acute (8) Chronic pain: Status: Acute Qualifiers: Chronic pain type: other chronic pain Qualified Code(s): G89.29 - Other chronic pain
[2021-08-18] MEDS: GEODON INJ IM SCH ×2 (14:03→20:45)
--- NOTE | 2021-08-19 00:34 | RAD ---
HISTORYSBO follow [id number]/27/2022 FINDINGSNondistended gas-filled loops of large and small bowel improved from prior study. There are surgical clips in the right upper quadrant. Skin timoteo are present in the midline.. No pathological soft tissue mass or calcification can be observed. The bony structures are grossly intact.IMPRESSIONNondistended gas-filled loops of large and small bowel improved from previous 08/15/2021.Electronically signed by: Sandro Elkins (Aug 19, 2021 00:32:53)
[2021-08-19] MEDS: D5 1/2 NS 1,000 ML 1,000 ML IV SCH ×4 (02:00→19:06)
[2021-08-19] MEDS: DILAUDID INJ IVP PRN ×4 (03:15→23:11)
[2021-08-19] MEDS: ATIVAN INJ 2 MG VIAL IVP PRN ×3 (04:23→15:55)
[2021-08-19] MEDS: ZOSYN VIAL 3.375 GRAMS 3.375 G in NS 100 ML IV + SPIKE MINIBAG* 100 ML IV SCH ×3 (06:23→21:20)
[2021-08-19 06:25] LABS: BASOPHILS % (AUTO) 0.1 % (0.2-1.0); EOSINOPHILS % (AUTO) 0.2 % (0.9-2.9); HEMATOCRIT 31.3 % (36.0-47.0); HEMOGLOBIN 10.7 g/dL (12.0-16.0); LYMPHOCYTES # (AUTO) 1.2 X10^3/uL (1.3-2.9); LYMPHOCYTES % (AUTO) 10.3 % (21.0-51.0); MEAN CORPUSCULAR HGB CONC 34.1 g/dL (33.0-35.0); MEAN PLATELET VOLUME 9.1 fL (7.4-11.0); MONOCYTES # (AUTO) 1.2 x10^3/uL (0.3-0.8); MONOCYTES % (AUTO) 10.2 % (0.0-13.0); NEUTROPHILS # (AUTO) 9.4 x10^3/uL (2.2-4.8); NEUTROPHILS % (AUTO) 79.2 % (42.0-75.0); RED BLOOD COUNT 3.22 X10^6/uL (3.5-5.4); RED CELL DISTRIBUTION WIDTH 15.2 % (11.6-16.5); WHITE BLOOD COUNT 11.8 X10^3/uL (3.6-10.0)
[2021-08-19 06:38] LABS: BLOOD UREA NITROGEN 2 mg/dL (7-18); CALCIUM 7.8 mg/dL (8.5-10.1); CARBON DIOXIDE 27.4 mmol/L (21-32); CHLORIDE 97 mmol/L (98-107); COR NA(FOR HYPERGLY) 134 mmol/L (136-145); CREATININE 0.48 mg/dL (0.55-1.02); SODIUM 133 mmol/L (136-145); eGFR NON BLACK RACES > 60 (>60)
[2021-08-19 07:18] LABS: BAND NEUTROPHILS % 4 % (0-10); PLATELET MORPHOLOGY COMMENT NORMAL (NORMAL)
[2021-08-19 07:27] LABS: MAGNESIUM 1.7 mg/dL (1.7-2.9)
[2021-08-19] MEDS: LOVENOX INJ 40 MG SYR SC SCH (08:48)
[2021-08-19] MEDS: NICOTINE PATCH TD SCH (08:48)
[2021-08-19] MEDS: PROTONIX INJ 40 MG VIAL IVP SCH (08:48)
--- NOTE | 2021-08-19 09:32 | DR.PROGNOT ---
Hospital Progress Notes - Progress Note for Day of: Progress Note Date: 08/19/21 - Chief Complaint Chief Complaint: post op day 4 . laparotomy , appendectomy , drainage of appediceal abscess . her agitation and restlessness in fairly controlled with medications . had normal BM last night ..no nausea or vomiting . oral intake is poor . WBC is 11 ..normal BUN/Creat and normal LFT . afebrile . - Past Medical Family Social History Past Med/Fam/Surg Hx: No changes since H&P Allergies: Allergies ciprofloxacin [From Cipro] Allergy (Verified 08/15/21 12:57) aspirin Adverse Reaction (Verified 08/15/21 01:19) NSAIDS (Non-Steroidal Anti-Inflamma Adverse Reaction (Verified 08/15/21 01:19) Sulfa (Sulfonamide Antibiotics) [SULFA] Adverse Reaction (Verified 08/15/21 01:19) - Review Of Systems ROS: No change since H&P - Vital Signs Vital Signs: Temperature 98.5 F Pulse Rate [Right] 104 Pulse Rate 97 Respiratory Rate 22 Blood Pressure [Left Arm] 152/99 Blood Pressure [Right Arm] 126/66 Blood Pressure 101/56 O2 Sat by Pulse Oximetry 95 - Physical Exam Oriented: Unable to test Eyes: Normal Ear: Normal Nose: Normal Throat: Dry Respiratory: Generalized, Diminished Cardiovascular: Tachycardia : Normal GI:Auscultation: Decreased GI:Palpation: Normal GI: Tenderness: Diffuse, Epigastric, Mild, Other (majority of timoteo intact, no surrounding erythema, soft abdomen). negative: Guarding, Rigidity Skin: Decreased Turgur Psychiatric: Anxiety, Agitation Mood Description: Anxious Affect: Anxious Speech Pattern: Unclear, Inappropriate, Excessive - Laboratory and Diagnostics Result Diagrams: 08/19/21 05:05 08/19/21 05:05 Labs: 08/15/21 14:25 Abdomen Wound Gram Stain - Final 08/15/21 14:25 Abdomen Wound Culture - Final Enterobacter Aerogenes 08/15/21 14:25 Abdomen Wound Culture - Final Pseudomonas Aeruginosa Laboratory WBC 11.8 X10^3/uL (3.6-10.0) H 08/19/21 05:05 RBC 3.22 X10^6/uL (3.5-5.4) L 08/19/21 05:05 Hgb 10.7 g/dL (12.0-16.0) L 08/19/21 05:05 Hct 31.3 % (36.0-47.0) L 08/19/21 05:05 MCV 97.0 fL (80.0-100.0) 08/19/21 05:05 MCH 33.0 pg (27.0-34.0) 08/19/21 05:05 MCHC 34.1 g/dL (33.0-35.0) 08/19/21 05:05 RDW 15.2 % (11.6-16.5) 08/19/21 05:05 Plt Count 237 X10^3/uL (150.0-450.0) 08/19/21 05:05 Plt Count Comment Adequate (ADEQUATE) 08/19/21 05:05 MPV 9.1 fL (7.4-11.0) 08/19/21 05:05 Neut % (Auto) 79.2 % (42.0-75.0) H 08/19/21 05:05 Lymph % (Auto) 10.3 % (21.0-51.0) L 08/19/21 05:05 [place] % (Auto) 10.2 % (0.0-13.0) 08/19/21 05:05 Eos % (Auto) 0.2 % (0.9-2.9) L 08/19/21 05:05 Baso % (Auto) 0.1 % (0.2-1.0) L 08/19/21 05:05 Neut # (Auto) 9.4 x10^3/uL (2.2-4.8) H 08/19/21 05:05 Lymph # (Auto) 1.2 X10^3/uL (1.3-2.9) L 08/19/21 05:05 [place] # (Auto) 1.2 x10^3/uL (0.3-0.8) H 08/19/21 05:05 Eos # (Auto) 0.0 x10^3/uL (0.0-0.2) 08/19/21 05:05 Baso # (Auto) 0.0 X10^3/uL (0.0-0.1) 08/19/21 05:05 Absolute Nucleated RBC 0.0 /100WBC 08/19/21 05:05 Total Counted 100 08/19/21 05:05 Neutrophils % (Manual) 75 % (39-76) 08/19/21 05:05 Band Neutrophils % 4 % (0-10) 08/19/21 05:05 Lymphocytes % (Manual) 10 % (13-43) L 08/19/21 05:05 Monocytes % (Manual) 11 % (4-9) H 08/19/21 05:05 Metamyelocytes % 4 08/16/21 06:00 Myelocytes % 3 08/16/21 06:00 Promyelocytes % 1 08/16/21 06:00 Plt Morphology Comment Normal (NORMAL) 08/19/21 05:05 RBC Morphology Normal (NORMAL) 08/19/21 05:05 Target Cells Slight A 08/16/21 06:00 Stomatocytes Slight A 08/16/21 06:00 PT 12.3 SECONDS (11.8-14.3) 08/15/21 08:46 INR Target Range - 08/15/21 08:46 INR 0.96 (0.8-1.3) 08/15/21 08:46 Sample Site Rrad 08/16/21 08:00 ABG pH 7.300 (7.35-7.45) L 08/16/21 08:00 ABG pCO2 61.0 mmHg (35.0-45.0) H* 08/16/21 08:00 ABG pO2 63.0 mmHg (80.0-100.0) L 08/16/21 08:00 ABG HCO3 30.0 mmol/L (22-26) H 08/16/21 08:00 ABG O2 Saturation 89.0 % (90-100) L 08/16/21 08:00 ABG Base Excess 2.2 mmol/L (-2.0-2.0) H 08/16/21 08:00 Mac Test Pos 08/16/21 08:00 A-a Gradient 217.0 mmHg 08/16/21 08:00 FiO2 50.0 08/16/21 08:00 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, 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7 mg/dL (8.5-10.1) 08/17/21 05:30 Magnesium 1.7 mg/dL (1.7-2.9) 08/19/21 05:05 Total Bilirubin 0.50 mg/dL (0.2-1.0) 08/17/21 05:30 AST 78 Units/L (15-37) H 08/17/21 05:30 ALT 52 Units/L (12-78) 08/17/21 05:30 Alkaline Phosphatase 85 Units/L (46-116) 08/17/21 05:30 Ammonia < 10 umol/L (11-32) L 08/15/21 11:39 Total Protein 5.2 g/dL (6.4-8.2) L 08/17/21 05:30 Albumin 2.1 g/dL (3.4-5.0) L 08/17/21 05:30 Globulin 3.1 g/dL (2.5-4.5) 08/17/21 05:30 Albumin/Globulin Ratio 0.7 Ratio (1.1-2.1) L 08/17/21 05:30 Urine Opiates Screen Negative (NEG=<300) 08/15/21 18:23 Urine Methadone Screen Negative (NEG=<300) 08/15/21 18:23 Ur Barbiturates Screen Positive (NEG=<200) A 08/15/21 18:23 Ur Phencyclidine Scrn Negative (NEG=<25) 08/15/21 18: Ur Amphetamines Screen Negative (NEG=<1000) 08/15/21 18:23 U Benzodiazepines Scrn Negative (NEG=<200) 08/15/21 18: Urine Cocaine Screen Negative (NEG=<300) 08/15/21 18: U Marijuana (THC) Screen Positive (NEG=<50) A 08/15/21 18:23 SARS CoV-2 RNA Rapid LAVERN Negative (NEGATIVE) 08/17/21 22:30 Tissue Pathology To follow 08/15/21 14:25 - Assessment and Plan 1: acute ruptured appedicitis with RLQ abscess . SBO, abdominal adhesions . depression and anxiety . Schizophrenia . PO agitation, confusion . to increase diet as tolerated .same medication for agitation . needs placement after d/c ..
[2021-08-19] MEDS ORDERED: LASIX IVP ONE (10:30)
[2021-08-19] MEDS: GEODON INJ IM SCH ×2 (10:41→21:20)
[2021-08-19] MEDS ORDERED: NARCAN INJ ONE ×2 (12:04→12:10)
[2021-08-19] MEDS ORDERED: NARCAN INJ IVP ONE (12:19)
[2021-08-19] MEDS ORDERED: NARCAN INJ IV ONE (12:23)
[2021-08-19] MEDS: TORADOL 30 MG VIAL IVP PRN ×2 (16:08→21:27)
[2021-08-19] MEDS: DUONEB 0.5 MG/3 MG (3 mL) NEB SCH ×2 (16:16→21:10)
--- NOTE | 2021-08-19 16:33 | PCM.PROG ---
Progress Note Progress Note for Day of Date of Exam: 08/19/21 Subjective Subjective: Patient seen at bedside, no acute events overnight. She is resting this morning. She does not appear to be as restless and agitated as before. Dr Palma also saw the patient this morning. She appeared to be sedated and was having apneic episodes. She was given narcan. He advanced her diet to soft diet. Patient has not been taking anything oral due to being so agitated and restless. She continues to be in restraints. Patient's remaining timoteo are intact, no surrounding erythema. She has been having normal BMs, no N/V/D. Labs/imaging reviewed Plan: Follow up surgery recommendations. Advance diet as per surgery. Continue hydration. Continue IV Zosyn. Continue nebs prn. Wean O2 as tolerated to keep sats > 92%. Continue dressing change as per surgery. Patient appears to be sedated with the current medications. Will stop haldon, change ativan to 2mg q6hrs prn, change Dilaudid to q4hr prn. Will monitor patient closely. She will likely need to be placed in behavioral rehab due to her worsening Schizophrenia. Time spent for clinical assessment, physical exam, reviewing labs/imaging, decision making and documentation greater than 45 mins. Past Medical Family Social History Past Med/Fam/Surg Hx: No changes since H&P Allergies: Allergies ciprofloxacin [From Cipro] Allergy (Verified 08/15/21 12:57) aspirin Adverse Reaction (Verified 08/15/21 01:19) NSAIDS (Non-Steroidal Anti-Inflamma Adverse Reaction (Verified 08/15/21 01:19) Sulfa (Sulfonamide Antibiotics) [SULFA] Adverse Reaction (Verified 08/15/21 01:19) Review of Systems ROS: No change since H&P Vital Signs and I&O's Vital Signs: Temperature 98.6 F Pulse Rate [Right] 107 Pulse Rate 91 Respiratory Rate 22 Blood Pressure [Left Arm] 170/98 Blood Pressure [Right Arm] 126/66 Blood Pressure 101/56 O2 Sat by Pulse Oximetry 95 Intake and Output: Intake & Output 08/16/21 08/17/21 08/18/21 08/19/21 23:59 23:59 23:59 23:59 Intake Total 1675 / 1675 1480 / 1480 2591 / 2591 1050 / 1050 Output Total 1904 / 1904 750 / 750 810 / 810 5110 / 5110 Balance -229 / -229 730 / 730 1781 / 1781 -4060 / -4060 Physical Exam Oriented: Unable to test Eyes: Normal Ear: Normal Nose: Normal Throat: Dry Respiratory: Generalized and Diminished Cardiovascular: Tachycardia Auscultation: Bowel Sounds: Normal Tenderness: Other (majority of timoteo intact, no surrounding erythema, soft abdomen ); negative Guarding and Rigidity Skin: Decreased Turgur Psychiatric: Agitation Mood Description: Calm Affect: Anxious Speech Pattern: Aphasic Laboratory and Diagnostics Result Diagrams: 08/19/21 05:05 08/19/21 05:05 Labs: 08/15/21 14:25 Abdomen Wound Gram Stain - Final 08/15/21 14:25 Abdomen Wound Culture - Final Enterobacter Aerogenes 08/15/21 14:25 Abdomen Wound Culture - Final Pseudomonas Aeruginosa Laboratory WBC 11.8 X10^3/uL (3.6-10.0) H 08/19/21 05:05 RBC 3.22 X10^6/uL (3.5-5.4) L 08/19/21 05:05 Hgb 10.7 g/dL (12.0-16.0) L 08/19/21 05:05 Hct 31.3 % (36.0-47.0) L 08/19/21 05:05 MCV 97.0 fL (80.0-100.0) 08/19/21 05:05 MCH 33.0 pg (27.0-34.0) 08/19/21 05:05 MCHC 34.1 g/dL (33.0-35.0) 08/19/21 05:05 RDW 15.2 % (11.6-16.5) 08/19/21 05:05 Plt Count 237 X10^3/uL (150.0-450.0) 08/19/21 05:05 Plt Count Comment Adequate (ADEQUATE) 08/19/21 05:05 MPV 9.1 fL (7.4-11.0) 08/19/21 05:05 Neut % (Auto) 79.2 % (42.0-75.0) H 08/19/21 05:05 Lymph % (Auto) 10.3 % (21.0-51.0) L 08/19/21 05:05 [place] % (Auto) 10.2 % (0.0-13.0) 08/19/21 05:05 Eos % (Auto) 0.2 % (0.9-2.9) L 08/19/21 05:05 Baso % (Auto) 0.1 % (0.2-1.0) L 08/19/21 05:05 Neut # (Auto) 9.4 x10^3/uL (2.2-4.8) H 08/19/21 05:05 Lymph # (Auto) 1.2 X10^3/uL (1.3-2.9) L 08/19/21 05:05 [place] # (Auto) 1.2 x10^3/uL (0.3-0.8) H 08/19/21 05:05 Eos # (Auto) 0.0 x10^3/uL (0.0-0.2) 08/19/21 05:05 Baso # (Auto) 0.0 X10^3/uL (0.0-0.1) 08/19/21 05:05 Absolute Nucleated RBC 0.0 /100WBC 08/19/21 05:05 Total Counted 100 08/19/21 05:05 Neutrophils % (Manual) 75 % (39-76) 08/19/21 05:05 Band Neutrophils % 4 % (0-10) 08/19/21 05:05 Lymphocytes % (Manual) 10 % (13-43) L 08/19/21 05:05 Monocytes % (Manual) 11 % (4-9) H 08/19/21 05:05 Metamyelocytes % 4 08/16/21 06:00 Myelocytes % 3 08/16/21 06:00 Promyelocytes % 1 08/16/21 06:00 Plt Morphology Comment Normal (NORMAL) 08/19/21 05:05 RBC Morphology Normal (NORMAL) 08/19/21 05:05 Target Cells Slight A 08/16/21 06:00 Stomatocytes Slight A 08/16/21 06:00 PT 12.3 SECONDS (11.8-14.3) 08/15/21 08:46 INR Target Range - 08/15/21 08:46 INR 0.96 (0.8-1.3) 08/15/21 08:46 Sample Site Rrad 08/16/21 08:00 ABG pH 7.300 (7.35-7.45) L 08/16/21 08:00 ABG pCO2 61.0 mmHg (35.0-45.0) H* 08/16/21 08:00 ABG pO2 63.0 mmHg (80.0-100.0) L 08/16/21 08:00 ABG HCO3 30.0 mmol/L (22-26) H 08/16/21 08:00 ABG O2 Saturation 89.0 % (90-100) L 08/16/21 08:00 ABG Base Excess 2.2 mmol/L (-2.0-2.0) H 08/16/21 08:00 Mac Test Pos 08/16/21 08:00 A-a Gradient 217.0 mmHg 08/16/21 08:00 FiO2 50.0 08/16/21 08:00 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, 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7 mg/dL (8.5-10.1) 08/17/21 05:30 Magnesium 1.7 mg/dL (1.7-2.9) 08/19/21 05:05 Total Bilirubin 0.50 mg/dL (0.2-1.0) 08/17/21 05:30 AST 78 Units/L (15-37) H 08/17/21 05:30 ALT 52 Units/L (12-78) 08/17/21 05:30 Alkaline Phosphatase 85 Units/L (46-116) 08/17/21 05:30 Ammonia < 10 umol/L (11-32) L 08/15/21 11:39 Total Protein 5.2 g/dL (6.4-8.2) L 08/17/21 05:30 Albumin 2.1 g/dL (3.4-5.0) L 08/17/21 05:30 Globulin 3.1 g/dL (2.5-4.5) 08/17/21 05:30 Albumin/Globulin Ratio 0.7 Ratio (1.1-2.1) L 08/17/21 05:30 Urine Opiates Screen Negative (NEG=<300) 08/15/21 18:23 Urine Methadone Screen Negative (NEG=<300) 08/15/21 18:23 Ur Barbiturates Screen Positive (NEG=<200) A 08/15/21 18:23 Ur Phencyclidine Scrn Negative (NEG=<25) 08/15/21 18:23 Ur Amphetamines Screen Negative (NEG=<1000) 08/15/21 18:23 U Benzodiazepines Scrn Negative (NEG=<200) 08/15/21 18:23 Urine Cocaine Screen Negative (NEG=<300) 08/15/21 18:23 U Marijuana (THC) Screen Positive (NEG=<50) A 08/15/21 18:23 SARS CoV-2 RNA Rapid LAVERN Negative (NEGATIVE) 08/17/21 22:30 Tissue Pathology To follow 08/15/21 14:25 Plan (1) Pneumonia: Status: Acute Qualifiers: Laterality: bilateral Lung location: lower lobe of lung Pneumonia type: due to unspecified organism Qualified Code(s): J18.9 - Pneumonia, unspecified organism (2) Agitation: Status: Acute (3) SBO (small bowel obstruction): Status: Acute (4) Hypokalemia: Status: Acute (5) Appendicitis with abscess: Status: Acute (6) Schizophrenia: Status: Acute Qualifiers: Schizophrenia type: unspecified Qualified Code(s): F20.9 - Schizophrenia, unspecified (7) Anxiety: Status: Acute (8) Chronic pain: Status: Acute Qualifiers: Chronic pain type: other chronic pain Qualified Code(s): G89.29 - Other chronic pain
--- NOTE | 2021-08-19 16:35 | RAD ---
Abdomen single viewIndication: Abdominal swellingCOMPARISONJan2021 radiographFINDINGSClips project over the abdomen. There moderately dilated loops of bowel, possibly small bowel. No gross free air or pneumatosis convincingly demonstrated. Cholecystectomy clips and vertebroplasty change noted.IMPRESSION: Persistently dilated loops of small bowel suggesting possible obstruction, relatively similar to the prior. No gross free air or pneumatosis convincingly demonstrated.Electronically signed by: ULYSSES SCHULZ (Aug 19, 2021 16:34:52)
[2021-08-19] MEDS ORDERED: ATIVAN INJ 2 MG VIAL IVP PRN (16:41)
[2021-08-19] MEDS: PULMICORT NEB TX 0.5 MG NEB SCH (21:10)
[2021-08-20] MEDS: DUONEB 0.5 MG/3 MG (3 mL) NEB SCH ×6 (00:45→20:53)
[2021-08-20] MEDS: DILAUDID INJ IVP PRN (03:00)
[2021-08-20] MEDS: ZOSYN VIAL 3.375 GRAMS 3.375 G in NS 100 ML IV + SPIKE MINIBAG* 100 ML IV SCH ×3 (05:36→21:01)
[2021-08-20 06:13] LABS: BASOPHILS % (AUTO) 0.2 % (0.2-1.0); EOSINOPHILS % (AUTO) 0.4 % (0.9-2.9); HEMATOCRIT 30.6 % (36.0-47.0); HEMOGLOBIN 10.8 g/dL (12.0-16.0); LYMPHOCYTES # (AUTO) 1.2 X10^3/uL (1.3-2.9); LYMPHOCYTES % (AUTO) 13.5 % (21.0-51.0); MEAN CORPUSCULAR HEMOGLOBIN 33.9 pg (27.0-34.0); MEAN CORPUSCULAR HGB CONC 35.2 g/dL (33.0-35.0); MEAN CORPUSCULAR VOLUME 96.4 fL (80.0-100.0); MEAN PLATELET VOLUME 8.7 fL (7.4-11.0); MONOCYTES # (AUTO) 1.1 x10^3/uL (0.3-0.8); MONOCYTES % (AUTO) 12.3 % (0.0-13.0); NEUTROPHILS # (AUTO) 6.8 x10^3/uL (2.2-4.8); NEUTROPHILS % (AUTO) 73.6 % (42.0-75.0); RED BLOOD COUNT 3.17 X10^6/uL (3.5-5.4); RED CELL DISTRIBUTION WIDTH 14.9 % (11.6-16.5); WHITE BLOOD COUNT 9.2 X10^3/uL (3.6-10.0)
[2021-08-20 06:18] LABS: BLOOD UREA NITROGEN 2 mg/dL (7-18); CALCIUM 7.7 mg/dL (8.5-10.1); CHLORIDE 102 mmol/L (98-107); CREATININE 0.48 mg/dL (0.55-1.02); SODIUM 144 mmol/L (136-145); eGFR NON BLACK RACES > 60 (>60)
[2021-08-20 07:12] LABS: BAND NEUTROPHILS % 1 % (0-10); METAMYELOCYTES % 2; MYELOCYTES % 1; PLATELET MORPHOLOGY COMMENT NORMAL (NORMAL)
[2021-08-20] MEDS: LOVENOX INJ 40 MG SYR SC SCH (08:03)
[2021-08-20] MEDS: PROTONIX INJ 40 MG VIAL IVP SCH (08:08)
[2021-08-20] MEDS: MAGNESIUM SULFATE 1 GRAM/100 mL PREMIX 1 G/100 ML BAG IV PRN ×4 (08:08→14:10)
[2021-08-20] MEDS: GEODON INJ IM SCH ×2 (08:10→20:35)
[2021-08-20] MEDS: TORADOL 30 MG VIAL IVP PRN ×2 (08:11→15:34)
[2021-08-20] MEDS: NICOTINE PATCH TD SCH (08:13)
[2021-08-20] MEDS: PULMICORT NEB TX 0.5 MG NEB SCH ×2 (09:59→20:53)
[2021-08-20] MEDS: D5 1/2 NS 1,000 ML 1,000 ML with POTASSIUM CHLORIDE INJ 40 MEQ VIAL 40 MEQ IV SCH ×2 (10:04)
--- NOTE | 2021-08-20 10:59 | DR.PROGNOT ---
Hospital Progress Notes - Progress Note for Day of: Progress Note Date: 08/20/21 - Chief Complaint Chief Complaint: post op day 5 . laparotomy , appendectomy , drainage of appediceal abscess . her agitation and restlessness is difficult to control ..poor oral intake. had normal BM last night ..no nausea or vomiting . WBC is normal ..normal BUN/Creat and normal LFT . K 2.8 Mg+1.2. afebrile . - Past Medical Family Social History Past Med/Fam/Surg Hx: No changes since H&P Allergies: Allergies ciprofloxacin [From Cipro] Allergy (Verified 08/15/21 12:57) aspirin Adverse Reaction (Verified 08/15/21 01:19) NSAIDS (Non-Steroidal Anti-Inflamma Adverse Reaction (Verified 08/15/21 01:19) Sulfa (Sulfonamide Antibiotics) [SULFA] Adverse Reaction (Verified 08/15/21 01:19) - Review Of Systems ROS: No change since H&P - Vital Signs Vital Signs: Temperature 98.7 F Pulse Rate [Right] 99 Pulse Rate 92 Respiratory Rate 20 Blood Pressure [Left Arm] 155/86 Blood Pressure [Right Arm] 126/66 Blood Pressure 101/56 O2 Sat by Pulse Oximetry 90 - Physical Exam Oriented: Unable to test (same agitation and restlessness ) Eyes: Normal Ear: Normal Nose: Normal Throat: Dry Respiratory: Generalized, Diminished Cardiovascular: Tachycardia : Normal GI:Auscultation: Normal GI:Palpation: Normal GI: Tenderness: Other (majority of timoteo intact, no surrounding erythema, soft abdomen). negative: Guarding, Rigidity Skin: Decreased Turgur Psychiatric: Agitation Mood Description: Calm Affect: Anxious Speech Pattern: Aphasic - Laboratory and Diagnostics Result Diagrams: 08/20/21 05:38 08/20/21 05:38 Labs: 08/15/21 14:25 Abdomen Wound Gram Stain - Final 08/15/21 14:25 Abdomen Wound Culture - Final Enterobacter Aerogenes 08/15/21 14:25 Abdomen Wound Culture - Final Pseudomonas Aeruginosa Laboratory WBC 9.2 X10^3/uL (3.6-10.0) 08/20/21 05:38 RBC 3.17 X10^6/uL (3.5-5.4) L 08/20/21 05:38 Hgb 10.8 g/dL (12.0-16.0) L 08/20/21 05:38 Hct 30.6 % (36.0-47.0) L 08/20/21 05:38 MCV 96.4 fL (80.0-100.0) 08/20/21 05:38 MCH 33.9 pg (27.0-34.0) 08/20/21 05:38 MCHC 35.2 g/dL (33.0-35.0) H 08/20/21 05:38 RDW 14.9 % (11.6-16.5) 08/20/21 05:38 Plt Count 219 X10^3/uL (150.0-450.0) 08/20/21 05:38 Plt Count Comment Adequate (ADEQUATE) 08/20/21 05:38 MPV 8.7 fL (7.4-11.0) 08/20/21 05:38 Neut % (Auto) 73.6 % (42.0-75.0) 08/20/21 05:38 Lymph % (Auto) 13.5 % (21.0-51.0) L 08/20/21 05:38 [place] % (Auto) 12.3 % (0.0-13.0) 08/20/21 05:38 Eos % (Auto) 0.4 % (0.9-2.9) L 08/20/21 05:38 Baso % (Auto) 0.2 % (0.2-1.0) 08/20/21 05:38 Neut # (Auto) 6.8 x10^3/uL (2.2-4.8) H 08/20/21 05:38 Lymph # (Auto) 1.2 X10^3/uL (1.3-2.9) L 08/20/21 05:38 [place] # (Auto) 1.1 x10^3/uL (0.3-0.8) H 08/20/21 05:38 Eos # (Auto) 0.0 x10^3/uL (0.0-0.2) 08/20/21 05:38 Baso # (Auto) 0.0 X10^3/uL (0.0-0.1) 08/20/21 05:38 Absolute Nucleated RBC 0.1 /100WBC 08/20/21 05:38 Total Counted 100 08/20/21 05:38 Neutrophils % (Manual) 74 % (39-76) 08/20/21 05:38 Band Neutrophils % 1 % (0-10) 08/20/21 05:38 Lymphocytes % (Manual) 14 % (13-43) 08/20/21 05:38 Monocytes % (Manual) 8 % (4-9) 08/20/21 05:38 Metamyelocytes % 2 08/20/21 05:38 Myelocytes % 1 08/20/21 05:38 Promyelocytes % 1 08/16/21 06:00 Plt Morphology Comment Normal (NORMAL) 08/20/21 05:38 RBC Morphology Normal (NORMAL) 08/20/21 05:38 Target Cells Slight A 08/16/21 06:00 Stomatocytes Slight A 08/16/21 06:00 PT 12.3 SECONDS (11.8-14.3) 08/15/21 08:46 INR Target Range - 08/15/21 08:46 INR 0.96 (0.8-1.3) 08/15/21 08:46 Sample Site Rrad 08/16/21 08:00 ABG pH 7.300 (7.35-7.45) L 08/16/21 08:00 ABG pCO2 61.0 mmHg (35.0-45.0) H* 08/16/21 08:00 ABG pO2 63.0 mmHg (80.0-100.0) L 08/16/21 08:00 ABG HCO3 30.0 mmol/L (22-26) H 08/16/21 08:00 ABG O2 Saturation 89.0 % (90-100) L 08/16/21 08:00 ABG Base Excess 2.2 mmol/L (-2.0-2.0) H 08/16/21 08:00 Mac Test Pos 08/16/21 08:00 A-a Gradient 217.0 mmHg 08/16/21 08:00 FiO2 50.0 08/16/21 08:00 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, 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 08/16/21 08:00 Sodium 144 mmol/L (136-145) 08/20/21 05:38 Corrected Sodium TNP 08/20/21 05:38 Potassium 2.8 mmol/L (3.5-5.1) L* 08/20/21 05:38 Chloride 102 mmol/L (98-107) 08/20/21 05:38 Carbon Dioxide 37.0 mmol/L (21-32) H 08/20/21 05:38 BUN 2 mg/dL (7-18) L 08/20/21 05:38 Creatinine 0.48 mg/dL (0.55-1.02) L 08/20/21 05:38 Est GFR (MDRD) Af Amer > 60 (>60) 08/20/21 05:38 Est GFR (MDRD) Non-Af > 60 (>60) 08/20/21 05:38 Glucose 84 mg/dL (65-99) 08/20/21 05:38 Lactic Acid 1.0 mmol/L (0.4-2.0) 08/17/21 09:33 Calcium 7.7 mg/dL (8.5-10.1) L 08/20/21 05:38 Corrected Calcium 9.7 mg/dL (8.5-10.1) 08/17/21 05:30 Magnesium 1.2 mg/dL (1.7-2.9) L 08/20/21 05:38 Total Bilirubin 0.50 mg/dL (0.2-1.0) 08/17/21 05:30 AST 78 Units/L (15-37) H 08/17/21 05:30 ALT 52 Units/L (12-78) 08/17/21 05:30 Alkaline Phosphatase 85 Units/L (46-116) 08/17/21 05:30 Ammonia < 10 umol/L (11-32) L 08/15/21 11:39 Total Protein 5.2 g/dL (6.4-8.2) L 08/17/21 05:30 Albumin 2.1 g/dL (3.4-5.0) L 08/17/21 05:30 Globulin 3.1 g/dL (2.5-4.5) 08/17/21 05:30 Albumin/Globulin Ratio 0.7 Ratio (1.1-2.1) L 08/17/21 05:30 Urine Opiates Screen Negative (NEG=<300) 08/15/21 18:23 Urine Methadone Screen Negative (NEG=<300) 08/15/21 18:23 Ur Barbiturates Screen Positive (NEG=<200) A 08/15/21 18:23 Ur Phencyclidine Scrn Negative (NEG=<25) 08/15/21 18:23 Ur Amphetamines Screen Negative (NEG=<1000) 08/15/21 18:23 U Benzodiazepines Scrn Negative (NEG=<200) 08/15/21 18:23 Urine Cocaine Screen Negative (NEG=<300) 08/15/21 18:23 U Marijuana (THC) Screen Positive (NEG=<50) A 08/15/21 18:23 SARS CoV-2 RNA Rapid LAVERN Negative (NEGATIVE) 08/17/21 22:30 Tissue Pathology To follow 08/15/21 14:25 - Assessment and Plan 1: s/p laparotomy , appendectomy for acute ruptured appedicitis with RLQ abscess . SBO, abdominal adhesions . depression and anxiety . Schizophrenia . PO agitation, confusion . to advance diet as tolerated .same home medication. needs placement after d/c ..
[2021-08-20] MEDS ORDERED: LEXAPRO ONE ×2 (11:18→19:51)
[2021-08-20] MEDS: COGENTIN TAB 1 MG PO SCH ×2 (11:31→20:37)
[2021-08-20] MEDS: LEXAPRO PO SCH ×2 (11:32→21:06)
[2021-08-20] MEDS: NORCO 5/325 MG TAB PO PRN ×2 (11:33→20:29)
--- NOTE | 2021-08-20 15:38 | CT ---
HISTORYINCREASED AGITATIONSTUDYBRAIN W/O CONCOMPARISONJanuary 2021TECHNIQUEAxial non-contrast images of the head with coronal and sagittal reformats.Radiation dose: 1258.70 mGy-cm total DLPFINDINGSNo abnormal areas of acute attenuation in the brain parenchyma.Mild periventricular chronic microvascular disease.Mild global atrophy; age appropriate.Lynne-white differentiation remains intact.No intracranial, extra-axial, fluid collection.No hemorrhage.No mass, mass effect or midline shift.No ventriculomegaly.No acute fracture.Status post left maxillary sinus surgery.Sinuses are well aerated.Mastoid air cells are well aerated.Globes and intraorbital contents are unremarkable.IMPRESSIONNo acute intracranial abnormality identified.Electronically signed by: Demond Lira (Aug 20, 2021 15:36:45)
--- NOTE | 2021-08-20 17:08 | PCM.PROG ---
Progress Note Progress Note for Day of Date of Exam: 08/20/21 Subjective Subjective: Patient seen at bedside, no acute events overnight. Patient does have intermittent episodes of agitation, restless and calling out. She did eat some supper last night. She was weaned down to NC O2 and is currently on 3L NC with sats > 90%. Dr Palma did give her a dose of lasix, she had good UOP. She has been having regular BMs. Labs/imaging reviewed Plan: Will switch to D51/2NS + KCl since patient's K was 2.8 this morning. Replace mag as per protocol. Will transition to PO medications if patient able to take her home medications by mouth. Speech consult. Discussed with nurse to avoid using sedating medications to see how patient does today. Follow up surgery recommendations. Advance diet as per surgery. Continue hydration. Continue IV Zosyn. Continue nebs prn. Wean O2 as tolerated to keep sats > 92%. She will likely need to be placed in behavioral rehab due to her worsening Schizophrenia. Time spent for clinical assessment, physical exam, reviewing labs/imaging, decision making and documentation greater than 45 mins. Past Medical Family Social History Past Med/Fam/Surg Hx: No changes since H&P Allergies: Allergies ciprofloxacin [From Cipro] Allergy (Verified 08/15/21 12:57) aspirin Adverse Reaction (Verified 08/15/21 01:19) NSAIDS (Non-Steroidal Anti-Inflamma Adverse Reaction (Verified 08/15/21 01:19) Sulfa (Sulfonamide Antibiotics) [SULFA] Adverse Reaction (Verified 08/15/21 01:19) Review of Systems ROS: No change since H&P Vital Signs and I&O's Vital Signs: Temperature 97.7 F Pulse Rate [Right] 90 Pulse Rate 84 Respiratory Rate 20 Blood Pressure [Left Arm] 107/60 Blood Pressure [Right Arm] 126/66 Blood Pressure 101/56 O2 Sat by Pulse Oximetry 95 Intake and Output: Intake & Output 08/17/21 08/18/21 08/19/21 08/20/21 23:59 23:59 23:59 23:59 Intake Total 1480 / 1480 2591 / 2591 1650 / 1650 1740 / 1740 Output Total 750 / 750 810 / 810 5110 / 5110 2175 / 2175 Balance 730 / 730 1781 / 1781 -3460 / -3460 -435 / -435 Physical Exam Oriented: Unable to test (same agitation and restlessness ) Eyes: Normal Ear: Normal Nose: Normal Throat: Dry Respiratory: Generalized and Diminished Cardiovascular: Tachycardia Auscultation: Bowel Sounds: Normal Tenderness: Other (majority of timoteo intact, no surrounding erythema, soft abdomen ); negative Guarding and Rigidity Skin: Decreased Turgur Psychiatric: Agitation Affect: Anxious Speech Pattern: Aphasic Laboratory and Diagnostics Result Diagrams: 08/20/21 05:38 08/20/21 12:53 Labs: 08/15/21 14:25 Abdomen Wound Gram Stain - Final 08/15/21 14:25 Abdomen Wound Culture - Final Enterobacter Aerogenes 08/15/21 14:25 Abdomen Wound Culture - Final Pseudomonas Aeruginosa Laboratory WBC 9.2 X10^3/uL (3.6-10.0) 08/20/21 05:38 RBC 3.17 X10^6/uL (3.5-5.4) L 08/20/21 05:38 Hgb 10.8 g/dL (12.0-16.0) L 08/20/21 05:38 Hct 30.6 % (36.0-47.0) L 08/20/21 05:38 MCV 96.4 fL (80.0-100.0) 08/20/21 05:38 MCH 33.9 pg (27.0-34.0) 08/20/21 05:38 MCHC 35.2 g/dL (33.0-35.0) H 08/20/21 05:38 RDW 14.9 % (11.6-16.5) 08/20/21 05:38 Plt Count 219 X10^3/uL (150.0-450.0) 08/20/21 05:38 Plt Count Comment Adequate (ADEQUATE) 08/20/21 05:38 MPV 8.7 fL (7.4-11.0) 08/20/21 05:38 Neut % (Auto) 73.6 % (42.0-75.0) 08/20/21 05:38 Lymph % (Auto) 13.5 % (21.0-51.0) L 08/20/21 05:38 [place] % (Auto) 12.3 % (0.0-13.0) 08/20/21 05:38 Eos % (Auto) 0.4 % (0.9-2.9) L 08/20/21 05:38 Baso % (Auto) 0.2 % (0.2-1.0) 08/20/21 05:38 Neut # (Auto) 6.8 x10^3/uL (2.2-4.8) H 08/20/21 05:38 Lymph # (Auto) 1.2 X10^3/uL (1.3-2.9) L 08/20/21 05:38 [place] # (Auto) 1.1 x10^3/uL (0.3-0.8) H 08/20/21 05:38 Eos # (Auto) 0.0 x10^3/uL (0.0-0.2) 08/20/21 05:38 Baso # (Auto) 0.0 X10^3/uL (0.0-0.1) 08/20/21 05:38 Absolute Nucleated RBC 0.1 /100WBC 08/20/21 05:38 Total Counted 100 08/20/21 05:38 Neutrophils % (Manual) 74 % (39-76) 08/20/21 05:38 Band Neutrophils % 1 % (0-10) 08/20/21 05:38 Lymphocytes % (Manual) 14 % (13-43) 08/20/21 05:38 Monocytes % (Manual) 8 % (4-9) 08/20/21 05:38 Metamyelocytes % 2 08/20/21 05:38 Myelocytes % 1 08/20/21 05:38 Promyelocytes % 1 08/16/21 06:00 Plt Morphology Comment Normal (NORMAL) 08/20/21 05:38 RBC Morphology Normal (NORMAL) 08/20/21 05:38 Target Cells Slight A 08/16/21 06:00 Stomatocytes Slight A 08/16/21 06:00 PT 12.3 SECONDS (11.8-14.3) 08/15/21 08:46 INR Target Range - 08/15/21 08:46 INR 0.96 (0.8-1.3) 08/15/21 08:46 Sample Site Rrad 08/16/21 08:00 ABG pH 7.300 (7.35-7.45) L 08/16/21 08:00 ABG pCO2 61.0 mmHg (35.0-45.0) H* 08/16/21 08:00 ABG pO2 63.0 mmHg (80.0-100.0) L 08/16/21 08:00 ABG HCO3 30.0 mmol/L (22-26) H 08/16/21 08:00 ABG O2 Saturation 89.0 % (90-100) L 08/16/21 08:00 ABG Base Excess 2.2 mmol/L (-2.0-2.0) H 08/16/21 08:00 Mac Test Pos 08/16/21 08:00 A-a Gradient 217.0 mmHg 08/16/21 08:00 FiO2 50.0 08/16/21 08:00 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, 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 08/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 08:00 Sodium 144 mmol/L (136-145) 08/20/21 05:38 Corrected Sodium TNP 08/20/21 05:38 Potassium 3.3 mmol/L (3.5-5.1) L 08/20/21 12:53 Chloride 102 mmol/L (98-107) 08/20/21 05:38 Carbon Dioxide 37.0 mmol/L (21-32) H 08/20/21 05:38 BUN 2 mg/dL (7-18) L 08/20/21 05:38 Creatinine 0.48 mg/dL (0.55-1.02) L 08/20/21 05:38 Est GFR (MDRD) Af Amer > 60 (>60) 08/20/21 05:38 Est GFR (MDRD) Non-Af > 60 (>60) 08/20/21 05:38 Glucose 84 mg/dL (65-99) 08/20/21 05:38 Lactic Acid 1.0 mmol/L (0.4-2.0) 08/17/21 09:33 Calcium 7.7 mg/dL (8.5-10.1) L 08/20/21 05:38 Corrected Calcium 9.7 mg/dL (8.5-10.1) 08/17/21 05:30 Magnesium 1.2 mg/dL (1.7-2.9) L 08/20/21 05:38 Total Bilirubin 0.50 mg/dL (0.2-1.0) 08/17/21 05:30 AST 78 Units/L (15-37) H 08/17/21 05:30 ALT 52 Units/L (12-78) 08/17/21 05:30 Alkaline Phosphatase 85 Units/L (46-116) 08/17/21 05:30 Ammonia < 10 umol/L (11-32) L 08/15/21 11:39 Total Protein 5.2 g/dL (6.4-8.2) L 08/17/21 05:30 Albumin 2.1 g/dL (3.4-5.0) L 08/17/21 05:30 Globulin 3.1 g/dL (2.5-4.5) 08/17/21 05:30 Albumin/Globulin Ratio 0.7 Ratio (1.1-2.1) L 08/17/21 05:30 Urine Opiates Screen Negative (NEG=<300) 08/15/21 18:23 Urine Methadone Screen Negative (NEG=<300) 08/15/21 18:23 Ur Barbiturates Screen Positive (NEG=<200) A 08/15/21 18:23 Ur Phencyclidine Scrn Negative (NEG=<25) 08/15/21 18:23 Ur Amphetamines Screen Negative (NEG=<1000) 08/15/21 18:23 U Benzodiazepines Scrn Negative (NEG=<200) 08/15/21 18:23 Urine Cocaine Screen Negative (NEG=<300) 08/15/21 18:23 U Marijuana (THC) Screen Positive (NEG=<50) A 08/15/21 18:23 SARS CoV-2 RNA Rapid LAVERN Negative (NEGATIVE) 08/17/21 22:30 Tissue Pathology To follow 08/15/21 14:25 Plan (1) Pneumonia: Status: Acute Qualifiers: Laterality: bilateral Lung location: lower lobe of lung Pneumonia type: due to unspecified organism Qualified Code(s): J18.9 - Pneumonia, unspecified organism (2) Agitation: Status: Acute (3) SBO (small bowel obstruction): Status: Acute (4) Hypokalemia: Status: Acute (5) Appendicitis with abscess: Status: Acute (6) Schizophrenia: Status: Acute Qualifiers: Schizophrenia type: unspecified Qualified Code(s): F20.9 - Schizophrenia, unspecified (7) Anxiety: Status: Acute (8) Chronic pain: Status: Acute Qualifiers: Chronic pain type: other chronic pain Qualified Code(s): G89.29 - Other chronic pain (9) Hypomagnesemia: Status: Acute
[2021-08-20] MEDS: MYSOLINE TAB 250 MG PO SCH (20:39)
[2021-08-20] MEDS: KLONOPIN TAB 0.5 MG PO SCH (20:43)
[2021-08-21] MEDS: TORADOL 30 MG VIAL IVP PRN (00:18)
[2021-08-21] MEDS: DUONEB 0.5 MG/3 MG (3 mL) NEB SCH ×6 (01:00→20:50)
[2021-08-21] MEDS: NORCO 5/325 MG TAB PO PRN ×3 (02:14→20:46)
[2021-08-21] MEDS: D5 1/2 NS 1,000 ML 1,000 ML with POTASSIUM CHLORIDE INJ 40 MEQ VIAL 40 MEQ IV SCH ×4 (02:27→13:31)
[2021-08-21] MEDS: ZOSYN VIAL 3.375 GRAMS 3.375 G in NS 100 ML IV + SPIKE MINIBAG* 100 ML IV SCH ×3 (05:36→21:16)
[2021-08-21 06:23] LABS: BASOPHILS % (AUTO) 0.2 % (0.2-1.0); EOSINOPHILS % (AUTO) 0.3 % (0.9-2.9); HEMATOCRIT 30.8 % (36.0-47.0); HEMOGLOBIN 10.6 g/dL (12.0-16.0); LYMPHOCYTES # (AUTO) 1.2 X10^3/uL (1.3-2.9); LYMPHOCYTES % (AUTO) 9.3 % (21.0-51.0); MEAN CORPUSCULAR HEMOGLOBIN 32.7 pg (27.0-34.0); MEAN CORPUSCULAR HGB CONC 34.4 g/dL (33.0-35.0); MEAN CORPUSCULAR VOLUME 95.1 fL (80.0-100.0); MEAN PLATELET VOLUME 9.4 fL (7.4-11.0); MONOCYTES # (AUTO) 1.4 x10^3/uL (0.3-0.8); MONOCYTES % (AUTO) 10.6 % (0.0-13.0); NEUTROPHILS # (AUTO) 10.5 x10^3/uL (2.2-4.8); NEUTROPHILS % (AUTO) 79.6 % (42.0-75.0); RED BLOOD COUNT 3.24 X10^6/uL (3.5-5.4); RED CELL DISTRIBUTION WIDTH 14.8 % (11.6-16.5); WHITE BLOOD COUNT 13.1 X10^3/uL (3.6-10.0)
[2021-08-21 06:34] LABS: BLOOD UREA NITROGEN 2 mg/dL (7-18); CALCIUM 7.2 mg/dL (8.5-10.1); CARBON DIOXIDE 30.1 mmol/L (21-32); CHLORIDE 100 mmol/L (98-107); COR NA(FOR HYPERGLY) 138 mmol/L (136-145); CREATININE 0.53 mg/dL (0.55-1.02); SODIUM 138 mmol/L (136-145); eGFR NON BLACK RACES > 60 (>60)
[2021-08-21] MEDS ORDERED: LEXAPRO ONE ×2 (08:21→20:17)
[2021-08-21] MEDS: LEXAPRO PO SCH ×2 (08:30→20:44)
[2021-08-21] MEDS: LOVENOX INJ 40 MG SYR SC SCH (08:30)
[2021-08-21] MEDS: KLONOPIN TAB 0.5 MG PO SCH ×2 (08:30→20:46)
[2021-08-21] MEDS: GEODON PO SCH ×3 (08:30→20:44)
[2021-08-21] MEDS: NICOTINE PATCH TD SCH (08:30)
[2021-08-21] MEDS: GEODON INJ IM SCH (08:30)
[2021-08-21] MEDS: ZOFRAN INJ 4 MG VIAL IVP PRN (08:30)
[2021-08-21] MEDS: PROTONIX INJ 40 MG VIAL IVP SCH (08:30)
[2021-08-21] MEDS: COGENTIN TAB 1 MG PO SCH ×2 (08:30→20:45)
[2021-08-21] MEDS: K-DUR TAB 20 MEQ PO PRN (08:30)
[2021-08-21] MEDS: PULMICORT NEB TX 0.5 MG NEB SCH ×2 (08:40→20:50)
--- NOTE | 2021-08-21 11:23 | DR.PROGNOT ---
Hospital Progress Notes - Progress Note for Day of: Progress Note Date: 08/21/21 - Chief Complaint Chief Complaint: post op day 6 . laparotomy , appendectomy , drainage of appediceal abscess . her agitation and restlessness is difficult to control ..poor oral intake. had normal BM last night ..no nausea or vomiting . WBC is 14.6 today . ..normal BUN/Creat and normal LFT . K 3.0 Mg+1.2. afebrile . - Past Medical Family Social History Past Med/Fam/Surg Hx: No changes since H&P Allergies: Allergies ciprofloxacin [From Cipro] Allergy (Verified 08/15/21 12:57) aspirin Adverse Reaction (Verified 08/15/21 01:19) NSAIDS (Non-Steroidal Anti-Inflamma Adverse Reaction (Verified 08/15/21 01:19) Sulfa (Sulfonamide Antibiotics) [SULFA] Adverse Reaction (Verified 08/15/21 01:19) - Review Of Systems ROS: No change since H&P - Vital Signs Vital Signs: Temperature 97.8 F Pulse Rate [Right] 87 Pulse Rate 89 Respiratory Rate 16 Blood Pressure [Left Arm] 151/73 Blood Pressure [Right Arm] 126/66 Blood Pressure 101/56 O2 Sat by Pulse Oximetry 96 - Physical Exam Oriented: Unable to test (same agitation and restlessness) Eyes: Normal Ear: Normal Nose: Normal Throat: Dry Respiratory: Generalized, Diminished Cardiovascular: Tachycardia : Normal GI:Auscultation: Normal GI:Palpation: Normal GI: Tenderness: negative: Guarding, Rigidity Skin: Decreased Turgur Psychiatric: Agitation Mood Description: Calm Affect: Anxious Speech Pattern: Clear, Appropriate - Laboratory and Diagnostics Result Diagrams: 08/21/21 05:17 08/21/21 05:17 Labs: 08/15/21 14:25 Abdomen Wound Gram Stain - Final 08/15/21 14:25 Abdomen Wound Culture - Final Enterobacter Aerogenes 08/15/21 14:25 Abdomen Wound Culture - Final Pseudomonas Aeruginosa Laboratory WBC 13.1 X10^3/uL (3.6-10.0) H 08/21/21 05:17 RBC 3.24 X10^6/uL (3.5-5.4) L 08/21/21 05:17 Hgb 10.6 g/dL (12.0-16.0) L 08/21/21 05:17 Hct 30.8 % (36.0-47.0) L 08/21/21 05:17 MCV 95.1 fL (80.0-100.0) 08/21/21 05:17 MCH 32.7 pg (27.0-34.0) 08/21/21 05:17 MCHC 34.4 g/dL (33.0-35.0) 08/21/21 05:17 RDW 14.8 % (11.6-16.5) 08/21/21 05:17 Plt Count 262 X10^3/uL (150.0-450.0) 08/21/21 05:17 Plt Count Comment Adequate (ADEQUATE) 08/20/21 05:38 MPV 9.4 fL (7.4-11.0) 08/21/21 05:17 Neut % (Auto) 79.6 % (42.0-75.0) H 08/21/21 05:17 Lymph % (Auto) 9.3 % (21.0-51.0) L 08/21/21 05:17 [place] % (Auto) 10.6 % (0.0-13.0) 08/21/21 05:17 Eos % (Auto) 0.3 % (0.9-2.9) L 08/21/21 05:17 Baso % (Auto) 0.2 % (0.2-1.0) 08/21/21 05:17 Neut # (Auto) 10.5 x10^3/uL (2.2-4.8) H 08/21/21 05:17 Lymph # (Auto) 1.2 X10^3/uL (1.3-2.9) L 08/21/21 05:17 [place] # (Auto) 1.4 x10^3/uL (0.3-0.8) H 08/21/21 05:17 Eos # (Auto) 0.0 x10^3/uL (0.0-0.2) 08/21/21 05:17 Baso # (Auto) 0.0 X10^3/uL (0.0-0.1) 08/21/21 05:17 Absolute Nucleated RBC 0.0 /100WBC 08/21/21 05:17 Total Counted 100 08/20/21 05:38 Neutrophils % (Manual) 74 % (39-76) 08/20/21 05:38 Band Neutrophils % 1 % (0-10) 08/20/21 05:38 Lymphocytes % (Manual) 14 % (13-43) 08/20/21 05:38 Monocytes % (Manual) 8 % (4-9) 08/20/21 05:38 Metamyelocytes % 2 08/20/21 05:38 Myelocytes % 1 08/20/21 05:38 Promyelocytes % 1 08/16/21 06:00 Plt Morphology Comment Normal (NORMAL) 08/20/21 05:38 RBC Morphology Normal (NORMAL) 08/20/21 05:38 Target Cells Slight A 08/16/21 06:00 Stomatocytes Slight A 08/16/21 06:00 PT 12.3 SECONDS (11.8-14.3) 08/15/21 08:46 INR Target Range - 08/15/21 08:46 INR 0.96 (0.8-1.3) 08/15/21 08:46 Sample Site Rrad 08/16/21 08:00 ABG pH 7.300 (7.35-7.45) L 08/16/21 08:00 ABG pCO2 61.0 mmHg (35.0-45.0) H* 08/16/21 08:00 ABG pO2 63.0 mmHg (80.0-100.0) L 08/16/21 08:00 ABG HCO3 30.0 mmol/L (22-26) H 08/16/21 08:00 ABG O2 Saturation 89.0 % (90-100) L 08/16/21 08:00 ABG Base Excess 2.2 mmol/L (-2.0-2.0) H 08/16/21 08:00 Mac Test Pos 08/16/21 08:00 A-a Gradient 217.0 mmHg 08/16/21 08:00 FiO2 50.0 08/16/21 08:00 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, 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 08/16/21 08:00 Sodium 138 mmol/L (136-145) 08/21/21 05:17 Corrected Sodium 138 mmol/L (136-145) 08/21/21 05:17 Potassium 3.0 mmol/L (3.5-5.1) L* 08/21/21 05:17 Chloride 100 mmol/L (98-107) 08/21/21 05:17 Carbon Dioxide 30.1 mmol/L (21-32) 08/21/21 05:17 BUN 2 mg/dL (7-18) L 08/21/21 05:17 Creatinine 0.53 mg/dL (0.55-1.02) L 08/21/21 05:17 Est GFR (MDRD) Af Amer > 60 (>60) 08/21/21 05:17 Est GFR (MDRD) Non-Af > 60 (>60) 08/21/21 05:17 Glucose 117 mg/dL (65-99) H 08/21/21 05:17 Lactic Acid 1.0 mmol/L (0.4-2.0) 08/17/21 09:33 Calcium 7.2 mg/dL (8.5-10.1) L 08/21/21 05:17 Corrected Calcium 9.7 mg/dL (8.5-10.1) 08/17/21 05:30 Magnesium 2.0 mg/dL (1.7-2.9) 08/21/21 05:17 Total Bilirubin 0.50 mg/dL (0.2-1.0) 08/17/21 05:30 AST 78 Units/L (15-37) H 08/17/21 05:30 ALT 52 Units/L (12-78) 08/17/21 05:30 Alkaline Phosphatase 85 Units/L (46-116) 08/17/21 05:30 Ammonia < 10 umol/L (11-32) L 08/15/21 11:39 Total Protein 5.2 g/dL (6.4-8.2) L 08/17/21 05:30 Albumin 2.1 g/dL (3.4-5.0) L 08/17/21 05:30 Globulin 3.1 g/dL (2.5-4.5) 08/17/21 05:30 Albumin/Globulin Ratio 0.7 Ratio (1.1-2.1) L 08/17/21 05:30 Urine Opiates Screen Negative (NEG=<300) 08/15/21 18:23 Urine Methadone Screen Negative (NEG=<300) 08/15/21 18:23 Ur Barbiturates Screen Positive (NEG=<200) A 08/15/21 18:23 Ur Phencyclidine Scrn Negative (NEG=<25) 08/15/21 18:23 Ur Amphetamines Screen Negative (NEG=<1000) 08/15/21 18:23 U Benzodiazepines Scrn Negative (NEG=<200) 08/15/21 18:23 Urine Cocaine Screen Negative (NEG=<300) 08/15/21 18:23 U Marijuana (THC) Screen Positive (NEG=<50) A 08/15/21 18:23 SARS CoV-2 RNA Rapid LAVERN Negative (NEGATIVE) 08/17/21 22:30 Tissue Pathology To follow 08/15/21 14:25 - Assessment and Plan 1: s/p laparotomy , appendectomy for acute ruptured appedicitis with RLQ abscess . SBO, abdominal adhesions . depression and anxiety . Schizophrenia . PO agitation, confusion . same post operative care ,control of agitation , nutritional support .and placement .
--- NOTE | 2021-08-21 13:15 | PCM.PROG ---
Progress Note Progress Note for Day of Date of Exam: 08/21/21 Subjective Subjective: Patient seen at bedside, no acute events overnight. Patient is more awake and alert this morning. She appears calm and not agitated/restless as before. She was able to answer some simple questions today. She has been asking for Dilaudid for pain control but patient was told that she was too sedated with that so has to take [place] PO. She did eat some yesterday. She had a BM yesterday. CT-head was normal with no acute changes. Labs/imaging reviewed Plan: Continue K replacement with IVF and protocol. Replace mag as per protocol. Continue PO medications. Continue [place] prn for post-op pain. Follow up surgery recommendations. Advance diet as per surgery. Continue IV Zosyn. Continue nebs prn. Patient was on room air this morning. PT/OT evaluation. She will likely need to be placed in behavioral rehab due to her worsening Schizophrenia. CM to work on placement, daughter prefers in [place]. Past Medical Family Social History Past Med/Fam/Surg Hx: No changes since H&P Allergies: Allergies ciprofloxacin [From Cipro] Allergy (Verified 08/15/21 12:57) aspirin Adverse Reaction (Verified 08/15/21 01:19) NSAIDS (Non-Steroidal Anti-Inflamma Adverse Reaction (Verified 08/15/21 01:19) Sulfa (Sulfonamide Antibiotics) [SULFA] Adverse Reaction (Verified 08/15/21 01:19) Review of Systems ROS: No change since H&P Vital Signs and I&O's Vital Signs: Temperature 98.6 F Pulse Rate [Right] 82 Pulse Rate 91 Respiratory Rate 22 Blood Pressure [Left Arm] 106/59 Blood Pressure [Right Arm] 126/66 Blood Pressure 101/56 O2 Sat by Pulse Oximetry 98 Intake and Output: Intake & Output 08/18/21 08/19/21 08/20/21 08/21/21 23:59 23:59 23:59 23:59 Intake Total 2591 / 2591 1650 / 1650 1840 / 1840 1918 / 1918 Output Total 810 / 810 5110 / 5110 3475 / 3475 720 / 720 Balance 1781 / 1781 -3460 / -3460 -1635 / -1635 1198 / 1198 Physical Exam Oriented: Unable to test Eyes: Normal Ear: Normal Nose: Normal Throat: Dry Respiratory: Generalized and Diminished Cardiovascular: Normal Auscultation: Bowel Sounds: Normal Tenderness: Normal and Other (incision noted with timoteo, soft, BS+ ) Skin: Decreased Turgur Mood Description: Calm Affect: Flat Speech Pattern: Appropriate and Delayed Laboratory and Diagnostics Result Diagrams: 08/21/21 05:17 08/21/21 05:17 Labs: 08/15/21 14:25 Abdomen Wound Gram Stain - Final 08/15/21 14:25 Abdomen Wound Culture - Final Enterobacter Aerogenes 08/15/21 14:25 Abdomen Wound Culture - Final Pseudomonas Aeruginosa Laboratory WBC 13.1 X10^3/uL (3.6-10.0) H 08/21/21 05:17 RBC 3.24 X10^6/uL (3.5-5.4) L 08/21/21 05:17 Hgb 10.6 g/dL (12.0-16.0) L 08/21/21 05:17 Hct 30.8 % (36.0-47.0) L 08/21/21 05:17 MCV 95.1 fL (80.0-100.0) 08/21/21 05:17 MCH 32.7 pg (27.0-34.0) 08/21/21 05:17 MCHC 34.4 g/dL (33.0-35.0) 08/21/21 05:17 RDW 14.8 % (11.6-16.5) 08/21/21 05:17 Plt Count 262 X10^3/uL (150.0-450.0) 08/21/21 05:17 Plt Count Comment Adequate (ADEQUATE) 08/20/21 05:38 MPV 9.4 fL (7.4-11.0) 08/21/21 05:17 Neut % (Auto) 79.6 % (42.0-75.0) H 08/21/21 05:17 Lymph % (Auto) 9.3 % (21.0-51.0) L 08/21/21 05:17 [place] % (Auto) 10.6 % (0.0-13.0) 08/21/21 05:17 Eos % (Auto) 0.3 % (0.9-2.9) L 08/21/21 05:17 Baso % (Auto) 0.2 % (0.2-1.0) 08/21/21 05:17 Neut # (Auto) 10.5 x10^3/uL (2.2-4.8) H 08/21/21 05:17 Lymph # (Auto) 1.2 X10^3/uL (1.3-2.9) L 08/21/21 05:17 [place] # (Auto) 1.4 x10^3/uL (0.3-0.8) H 08/21/21 05:17 Eos # (Auto) 0.0 x10^3/uL (0.0-0.2) 08/21/21 05:17 Baso # (Auto) 0.0 X10^3/uL (0.0-0.1) 08/21/21 05:17 Absolute Nucleated RBC 0.0 /100WBC 08/21/21 05:17 Total Counted 100 08/20/21 05:38 Neutrophils % (Manual) 74 % (39-76) 08/20/21 05:38 Band Neutrophils % 1 % (0-10) 08/20/21 05:38 Lymphocytes % (Manual) 14 % (13-43) 08/20/21 05:38 Monocytes % (Manual) 8 % (4-9) 08/20/21 05:38 Metamyelocytes % 2 08/20/21 05:38 Myelocytes % 1 08/20/21 05:38 Promyelocytes % 1 08/16/21 06:00 Plt Morphology Comment Normal (NORMAL) 08/20/21 05:38 RBC Morphology Normal (NORMAL) 08/20/21 05:38 Target Cells Slight A 08/16/21 06:00 Stomatocytes Slight A 08/16/21 06:00 PT 12.3 SECONDS (11.8-14.3) 08/15/21 08:46 INR Target Range - 08/15/21 08:46 INR 0.96 (0.8-1.3) 08/15/21 08:46 Sample Site Rrad 08/16/21 08:00 ABG pH 7.300 (7.35-7.45) L 08/16/21 08:00 ABG pCO2 61.0 mmHg (35.0-45.0) H* 08/16/21 08:00 ABG pO2 63.0 mmHg (80.0-100.0) L 08/16/21 08:00 ABG HCO3 30.0 mmol/L (22-26) H 08/16/21 08:00 ABG O2 Saturation 89.0 % (90-100) L 08/16/21 08:00 ABG Base Excess 2.2 mmol/L (-2.0-2.0) H 08/16/21 08:00 Mac Test Pos 08/16/21 08:00 A-a Gradient 217.0 mmHg 08/16/21 08:00 FiO2 50.0 08/16/21 08:00 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, 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 08:00 Sodium 138 mmol/L (136-145) 08/21/21 05:17 Corrected Sodium 138 mmol/L (136-145) 08/21/21 05:17 Potassium 3.0 mmol/L (3.5-5.1) L* 08/21/21 05:17 Chloride 100 mmol/L (98-107) 08/21/21 05:17 Carbon Dioxide 30.1 mmol/L (21-32) 08/21/21 05:17 BUN 2 mg/dL (7-18) L 08/21/21 05:17 Creatinine 0.53 mg/dL (0.55-1.02) L 08/21/21 05:17 Est GFR (MDRD) Af Amer > 60 (>60) 08/21/21 05:17 Est GFR (MDRD) Non-Af > 60 (>60) 08/21/21 05:17 Glucose 117 mg/dL (65-99) H 08/21/21 05:17 Lactic Acid 1.0 mmol/L (0.4-2.0) 08/17/21 09:33 Calcium 7.2 mg/dL (8.5-10.1) L 08/21/21 05:17 Corrected Calcium 9.7 mg/dL (8.5-10.1) 08/17/21 05:30 Magnesium 2.0 mg/dL (1.7-2.9) 08/21/21 05:17 Total Bilirubin 0.50 mg/dL (0.2-1.0) 08/17/21 05:30 AST 78 Units/L (15-37) H 08/17/21 05:30 ALT 52 Units/L (12-78) 08/17/21 05:30 Alkaline Phosphatase 85 Units/L (46-116) 08/17/21 05:30 Ammonia < 10 umol/L (11-32) L 08/15/21 11:39 Total Protein 5.2 g/dL (6.4-8.2) L 08/17/21 05:30 Albumin 2.1 g/dL (3.4-5.0) L 08/17/21 05:30 Globulin 3.1 g/dL (2.5-4.5) 08/17/21 05:30 Albumin/Globulin Ratio 0.7 Ratio (1.1-2.1) L 08/17/21 05:30 Urine Opiates Screen Negative (NEG=<300) 08/15/21 18:23 Urine Methadone Screen Negative (NEG=<300) 08/15/21 18:23 Ur Barbiturates Screen Positive (NEG=<200) A 08/15/21 18:23 Ur Phencyclidine Scrn Negative (NEG=<25) 08/15/21 18:23 Ur Amphetamines Screen Negative (NEG=<1000) 08/15/21 18:23 U Benzodiazepines Scrn Negative (NEG=<200) 08/15/21 18:23 Urine Cocaine Screen Negative (NEG=<300) 08/15/21 18:23 U Marijuana (THC) Screen Positive (NEG=<50) A 08/15/21 18:23 SARS CoV-2 RNA Rapid LAVERN Negative (NEGATIVE) 08/17/21 22:30 Tissue Pathology To follow 08/15/21 14:25 Plan (1) Pneumonia: Status: Acute Qualifiers: Laterality: bilateral Lung location: lower lobe of lung Pneumonia type: due to unspecified organism Qualified Code(s): J18.9 - Pneumonia, unspecified organism (2) Agitation: Status: Acute (3) SBO (small bowel obstruction): Status: Acute (4) Hypokalemia: Status: Acute (5) Appendicitis with abscess: Status: Acute (6) Schizophrenia: Status: Acute Qualifiers: Schizophrenia type: unspecified Qualified Code(s): F20.9 - Schizophrenia, unspecified (7) Anxiety: Status: Acute (8) Chronic pain: Status: Acute Qualifiers: Chronic pain type: other chronic pain Qualified Code(s): G89.29 - Other chronic pain (9) Hypomagnesemia: Status: Acute
[2021-08-21] MEDS: MYSOLINE TAB 250 MG PO SCH (20:46)
[2021-08-21] MEDS ORDERED: BUTT CREAM (COMPOUND) ONE (23:11)
[2021-08-22] MEDS: D5 1/2 NS 1,000 ML 1,000 ML with POTASSIUM CHLORIDE INJ 40 MEQ VIAL 40 MEQ IV SCH ×2 (00:34)
[2021-08-22] MEDS: DUONEB 0.5 MG/3 MG (3 mL) NEB SCH ×6 (03:16→20:55)
[2021-08-22] MEDS: ZOSYN VIAL 3.375 GRAMS 3.375 G in NS 100 ML IV + SPIKE MINIBAG* 100 ML IV SCH ×3 (05:36→21:37)
[2021-08-22 06:14] LABS: BASOPHILS % (AUTO) 0.3 % (0.2-1.0); EOSINOPHILS # (AUTO) 0.1 x10^3/uL (0.0-0.2); EOSINOPHILS % (AUTO) 0.5 % (0.9-2.9); HEMATOCRIT 31.9 % (36.0-47.0); HEMOGLOBIN 10.8 g/dL (12.0-16.0); LYMPHOCYTES # (AUTO) 1.2 X10^3/uL (1.3-2.9); LYMPHOCYTES % (AUTO) 9.8 % (21.0-51.0); MEAN CORPUSCULAR VOLUME 97.2 fL (80.0-100.0); MEAN PLATELET VOLUME 9.1 fL (7.4-11.0); MONOCYTES # (AUTO) 1.3 x10^3/uL (0.3-0.8); MONOCYTES % (AUTO) 10.1 % (0.0-13.0); NEUTROPHILS # (AUTO) 9.9 x10^3/uL (2.2-4.8); NEUTROPHILS % (AUTO) 79.3 % (42.0-75.0); RED BLOOD COUNT 3.28 X10^6/uL (3.5-5.4); RED CELL DISTRIBUTION WIDTH 15.3 % (11.6-16.5); WHITE BLOOD COUNT 12.5 X10^3/uL (3.6-10.0)
[2021-08-22 06:27] LABS: BLOOD UREA NITROGEN 2 mg/dL (7-18); CALCIUM 7.7 mg/dL (8.5-10.1); CARBON DIOXIDE 29.8 mmol/L (21-32); CHLORIDE 105 mmol/L (98-107); CREATININE 0.48 mg/dL (0.55-1.02); MAGNESIUM 1.9 mg/dL (1.7-2.9); SODIUM 139 mmol/L (136-145); eGFR NON BLACK RACES > 60 (>60)
[2021-08-22] MEDS ORDERED: LEXAPRO ONE ×2 (09:08→20:01)
--- NOTE | 2021-08-22 09:16 | DR.PROGNOT ---
Hospital Progress Notes - Progress Note for Day of: Progress Note Date: 08/22/21 - Chief Complaint Chief Complaint: post op day 7. laparotomy , appendectomy , drainage of appediceal abscess . her agitation and restlessness is much better now. moderate improvement of oral intake and back on her psych meds. had normal BM last night ..no nausea or vomiting . WBC is 12.5 today . ..normal BUN/Creat and normal LFT . K normal Mg+1.2. afebrile . - Past Medical Family Social History Past Med/Fam/Surg Hx: No changes since H&P Allergies: Allergies ciprofloxacin [From Cipro] Allergy (Verified 08/15/21 12:57) aspirin Adverse Reaction (Verified 08/15/21 01:19) NSAIDS (Non-Steroidal Anti-Inflamma Adverse Reaction (Verified 08/15/21 01:19) Sulfa (Sulfonamide Antibiotics) [SULFA] Adverse Reaction (Verified 08/15/21 01:19) - Review Of Systems ROS: No change since H&P - Vital Signs Vital Signs: Temperature 97.3 F Pulse Rate [Right] 92 Pulse Rate 91 Respiratory Rate 18 Blood Pressure [Left Arm] 158/74 Blood Pressure [Right Arm] 126/66 Blood Pressure 101/56 O2 Sat by Pulse Oximetry 90 - Physical Exam Oriented: Unable to test Eyes: Normal Ear: Normal Nose: Normal Throat: Dry Respiratory: Generalized, Diminished Cardiovascular: Normal : Normal GI:Auscultation: Normal GI:Palpation: Normal GI: Tenderness: Normal, Other (incision noted with timoteo, soft, BS+) Skin: Decreased Turgur Psychiatric: Agitation Mood Description: Calm Affect: Flat Speech Pattern: Clear, Appropriate - Laboratory and Diagnostics Result Diagrams: 08/22/21 05:17 08/22/21 05:17 Labs: 08/15/21 14:25 Abdomen Wound Gram Stain - Final 08/15/21 14:25 Abdomen Wound Culture - Final Enterobacter Aerogenes 08/15/21 14:25 Abdomen Wound Culture - Final Pseudomonas Aeruginosa Laboratory WBC 12.5 X10^3/uL (3.6-10.0) H 08/22/21 05:17 RBC 3.28 X10^6/uL (3.5-5.4) L 08/22/21 05:17 Hgb 10.8 g/dL (12.0-16.0) L 08/22/21 05:17 Hct 31.9 % (36.0-47.0) L 08/22/21 05:17 MCV 97.2 fL (80.0-100.0) 08/22/21 05:17 MCH 33.0 pg (27.0-34.0) 08/22/21 05:17 MCHC 34.0 g/dL (33.0-35.0) 08/22/21 05:17 RDW 15.3 % (11.6-16.5) 08/22/21 05:17 Plt Count 278 X10^3/uL (150.0-450.0) 08/22/21 05:17 Plt Count Comment Adequate (ADEQUATE) 08/20/21 05:38 MPV 9.1 fL (7.4-11.0) 08/22/21 05:17 Neut % (Auto) 79.3 % (42.0-75.0) H 08/22/21 05:17 Lymph % (Auto) 9.8 % (21.0-51.0) L 08/22/21 05:17 [place] % (Auto) 10.1 % (0.0-13.0) 08/22/21 05:17 Eos % (Auto) 0.5 % (0.9-2.9) L 08/22/21 05:17 Baso % (Auto) 0.3 % (0.2-1.0) 08/22/21 05:17 Neut # (Auto) 9.9 x10^3/uL (2.2-4.8) H 08/22/21 05:17 Lymph # (Auto) 1.2 X10^3/uL (1.3-2.9) L 08/22/21 05:17 [place] # (Auto) 1.3 x10^3/uL (0.3-0.8) H 08/22/21 05:17 Eos # (Auto) 0.1 x10^3/uL (0.0-0.2) 08/22/21 05:17 Baso # (Auto) 0.0 X10^3/uL (0.0-0.1) 08/22/21 05:17 Absolute Nucleated RBC 0.0 /100WBC 08/22/21 05:17 Total Counted 100 08/20/21 05:38 Neutrophils % (Manual) 74 % (39-76) 08/20/21 05:38 Band Neutrophils % 1 % (0-10) 08/20/21 05:38 Lymphocytes % (Manual) 14 % (13-43) 08/20/21 05:38 Monocytes % (Manual) 8 % (4-9) 08/20/21 05:38 Metamyelocytes % 2 08/20/21 05:38 Myelocytes % 1 08/20/21 05:38 Promyelocytes % 1 08/16/21 06:00 Plt Morphology Comment Normal (NORMAL) 08/20/21 05:38 RBC Morphology Normal (NORMAL) 08/20/21 05:38 Target Cells Slight A 08/16/21 06:00 Stomatocytes Slight A 08/16/21 06:00 PT 12.3 SECONDS (11.8-14.3) 08/15/21 08:46 INR Target Range - 08/15/21 08:46 INR 0.96 (0.8-1.3) 08/15/21 08:46 Sample Site Rrad 08/16/21 08:00 ABG pH 7.300 (7.35-7.45) L 08/16/21 08:00 ABG pCO2 61.0 mmHg (35.0-45.0) H* 08/16/21 08:00 ABG pO2 63.0 mmHg (80.0-100.0) L 08/16/21 08:00 ABG HCO3 30.0 mmol/L (22-26) H 08/16/21 08:00 ABG O2 Saturation 89.0 % (90-100) L 08/16/21 08:00 ABG Base Excess 2.2 mmol/L (-2.0-2.0) H 08/16/21 08:00 Mac Test Pos 08/16/21 08:00 A-a Gradient 217.0 mmHg 08/16/21 08:00 FiO2 50.0 08/16/21 08:00 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, 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 08/16/21 08:00 Sodium 139 mmol/L (136-145) 08/22/21 05:17 Corrected Sodium TNP 08/22/21 05:17 Potassium 4.3 mmol/L (3.5-5.1) 08/22/21 05:17 Chloride 105 mmol/L (98-107) 08/22/21 05:17 Carbon Dioxide 29.8 mmol/L (21-32) 08/22/21 05:17 BUN 2 mg/dL (7-18) L 08/22/21 05:17 Creatinine 0.48 mg/dL (0.55-1.02) L 08/22/21 05:17 Est GFR (MDRD) Af Amer > 60 (>60) 08/22/21 05:17 Est GFR (MDRD) Non-Af > 60 (>60) 08/22/21 05:17 Glucose 93 mg/dL (65-99) 08/22/21 05:17 Lactic Acid 1.0 mmol/L (0.4-2.0) 08/17/21 09:33 Calcium 7.7 mg/dL (8.5-10.1) L 08/22/21 05:17 Corrected Calcium 9.7 mg/dL (8.5-10.1) 08/17/21 05:30 Magnesium 1.9 mg/dL (1.7-2.9) 08/22/21 05:17 Total Bilirubin 0.50 mg/dL (0.2-1.0) 08/17/21 05:30 AST 78 Units/L (15-37) H 08/17/21 05:30 ALT 52 Units/L (12-78) 08/17/21 05:30 Alkaline Phosphatase 85 Units/L (46-116) 08/17/21 05:30 Ammonia < 10 umol/L (11-32) L 08/15/21 11:39 Total Protein 5.2 g/dL (6.4-8.2) L 08/17/21 05:30 Albumin 2.1 g/dL (3.4-5.0) L 08/17/21 05:30 Globulin 3.1 g/dL (2.5-4.5) 08/17/21 05:30 Albumin/Globulin Ratio 0.7 Ratio (1.1-2.1) L 08/17/21 05:30 Urine Opiates Screen Negative (NEG=<300) 08/15/21 18:23 Urine Methadone Screen Negative (NEG=<300) 08/15/21 18:23 Ur Barbiturates Screen Positive (NEG=<200) A 08/15/21 18:23 Ur Phencyclidine Scrn Negative (NEG=<25) 08/15/21 18:23 Ur Amphetamines Screen Negative (NEG=<1000) 08/15/21 18:23 U Benzodiazepines Scrn Negative (NEG=<200) 08/15/21 18:23 Urine Cocaine Screen Negative (NEG=<300) 08/15/21 18:23 U Marijuana (THC) Screen Positive (NEG=<50) A 08/15/21 18:23 SARS CoV-2 RNA Rapid LAVERN Negative (NEGATIVE) 08/17/21 22:30 Tissue Pathology To follow 08/15/21 14:25 - Assessment and Plan 1: s/p laparotomy , appendectomy for acute ruptured appedicitis with RLQ abscess . SBO, abdominal adhesions . depression and anxiety . Schizophrenia . PO agitation, confusion . same post operative care ,control of agitation , nutritional support .and placement .
[2021-08-22] MEDS: PULMICORT NEB TX 0.5 MG NEB SCH ×2 (09:18→20:55)
[2021-08-22] MEDS: LOVENOX INJ 40 MG SYR SC SCH (09:29)
[2021-08-22] MEDS: NICOTINE PATCH TD SCH (09:29)
[2021-08-22] MEDS: GEODON PO SCH ×2 (09:30→21:36)
[2021-08-22] MEDS: KLONOPIN TAB 0.5 MG PO SCH ×2 (09:30→21:36)
[2021-08-22] MEDS: COGENTIN TAB 1 MG PO SCH ×2 (09:30→21:37)
[2021-08-22] MEDS: LEXAPRO PO SCH ×2 (09:30→21:34)
[2021-08-22] MEDS: PROTONIX INJ 40 MG VIAL IVP SCH (09:31)
[2021-08-22] MEDS: NORCO 5/325 MG TAB PO PRN ×3 (10:13→21:35)
--- NOTE | 2021-08-22 11:23 | PCM.PROG ---
Progress Note Progress Note for Day of Date of Exam: 08/22/21 Subjective Subjective: Patient seen at bedside, no acute events overnight. Patient is resting in bed, appears calm. She did not eat much yesterday. She appears in no distress. She has been taking her PO medications. She did work with PT and sat on the chair. Labs/imaging reviewed Plan: Encourage PO intake. Change IVF to D5 NS with KCl, patient's K is normal today. Continue PO medications. Continue Astor prn for post-op pain. Follow up surgery recommendations. Advance diet as per surgery. Continue IV Zosyn. Continue nebs prn. Patient was on room air this morning. Continue PT/OT. She will likely need to be placed in behavioral rehab due to her worsening Schizophrenia. CM to work on placement. Past Medical Family Social History Past Med/Fam/Surg Hx: No changes since H&P Allergies: Allergies ciprofloxacin [From Cipro] Allergy (Verified 08/15/21 12:57) aspirin Adverse Reaction (Verified 08/15/21 01:19) NSAIDS (Non-Steroidal Anti-Inflamma Adverse Reaction (Verified 08/15/21 01:19) Sulfa (Sulfonamide Antibiotics) [SULFA] Adverse Reaction (Verified 08/15/21 01:19) Review of Systems ROS: No change since H&P Vital Signs and I&O's Vital Signs: Temperature 97.3 F Pulse Rate [Right] 92 Pulse Rate 95 Respiratory Rate 18 Blood Pressure [Left Arm] 158/74 Blood Pressure [Right Arm] 126/66 Blood Pressure 101/56 O2 Sat by Pulse Oximetry 92 Intake and Output: Intake & Output 08/19/21 08/20/21 08/21/21 08/22/21 23:59 23:59 23:59 23:59 Intake Total 1650 / 1650 1840 / 1840 3976 / 3976 1217 / 1217 Output Total 5110 / 5110 3475 / 3475 1220 / 1220 Balance -3460 / -3460 -1635 / -1635 2756 / 2756 1217 / 1217 Physical Exam Oriented: Unable to test Eyes: Normal Ear: Normal Nose: Normal Throat: Dry Respiratory: Generalized and Diminished Cardiovascular: Normal Auscultation: Bowel Sounds: Normal Tenderness: Normal and Other (incision noted with timoteo, soft, BS+ ) Skin: Decreased Turgur Psychiatric: Normal Mood Description: Calm Affect: Flat Speech Pattern: Clear and Appropriate Laboratory and Diagnostics Result Diagrams: 08/22/21 05:17 08/22/21 05:17 Labs: 08/15/21 14:25 Abdomen Wound Gram Stain - Final 08/15/21 14:25 Abdomen Wound Culture - Final Enterobacter Aerogenes 08/15/21 14:25 Abdomen Wound Culture - Final Pseudomonas Aeruginosa Laboratory WBC 12.5 X10^3/uL (3.6-10.0) H 08/22/21 05:17 RBC 3.28 X10^6/uL (3.5-5.4) L 08/22/21 05:17 Hgb 10.8 g/dL (12.0-16.0) L 08/22/21 05:17 Hct 31.9 % (36.0-47.0) L 08/22/21 05:17 MCV 97.2 fL (80.0-100.0) 08/22/21 05:17 MCH 33.0 pg (27.0-34.0) 08/22/21 05:17 MCHC 34.0 g/dL (33.0-35.0) 08/22/21 05:17 RDW 15.3 % (11.6-16.5) 08/22/21 05:17 Plt Count 278 X10^3/uL (150.0-450.0) 08/22/21 05:17 Plt Count Comment Adequate (ADEQUATE) 08/20/21 05:38 MPV 9.1 fL (7.4-11.0) 08/22/21 05:17 Neut % (Auto) 79.3 % (42.0-75.0) H 08/22/21 05:17 Lymph % (Auto) 9.8 % (21.0-51.0) L 08/22/21 05:17 [place] % (Auto) 10.1 % (0.0-13.0) 08/22/21 05:17 Eos % (Auto) 0.5 % (0.9-2.9) L 08/22/21 05:17 Baso % (Auto) 0.3 % (0.2-1.0) 08/22/21 05:17 Neut # (Auto) 9.9 x10^3/uL (2.2-4.8) H 08/22/21 05:17 Lymph # (Auto) 1.2 X10^3/uL (1.3-2.9) L 08/22/21 05:17 [place] # (Auto) 1.3 x10^3/uL (0.3-0.8) H 08/22/21 05:17 Eos # (Auto) 0.1 x10^3/uL (0.0-0.2) 08/22/21 05:17 Baso # (Auto) 0.0 X10^3/uL (0.0-0.1) 08/22/21 05:17 Absolute Nucleated RBC 0.0 /100WBC 08/22/21 05:17 Total Counted 100 08/20/21 05:38 Neutrophils % (Manual) 74 % (39-76) 08/20/21 05:38 Band Neutrophils % 1 % (0-10) 08/20/21 05:38 Lymphocytes % (Manual) 14 % (13-43) 08/20/21 05:38 Monocytes % (Manual) 8 % (4-9) 08/20/21 05:38 Metamyelocytes % 2 08/20/21 05:38 Myelocytes % 1 08/20/21 05:38 Promyelocytes % 1 08/16/21 06:00 Plt Morphology Comment Normal (NORMAL) 08/20/21 05:38 RBC Morphology Normal (NORMAL) 08/20/21 05:38 Target Cells Slight A 08/16/21 06:00 Stomatocytes Slight A 08/16/21 06:00 PT 12.3 SECONDS (11.8-14.3) 08/15/21 08:46 INR Target Range - 08/15/21 08:46 INR 0.96 (0.8-1.3) 08/15/21 08:46 Sample Site Rrad 08/16/21 08:00 ABG pH 7.300 (7.35-7.45) L 08/16/21 08:00 ABG pCO2 61.0 mmHg (35.0-45.0) H* 08/16/21 08:00 ABG pO2 63.0 mmHg (80.0-100.0) L 08/16/21 08:00 ABG HCO3 30.0 mmol/L (22-26) H 08/16/21 08:00 ABG O2 Saturation 89.0 % (90-100) L 08/16/21 08:00 ABG Base Excess 2.2 mmol/L (-2.0-2.0) H 08/16/21 08:00 Mac Test Pos 08/16/21 08:00 A-a Gradient 217.0 mmHg 08/16/21 08:00 FiO2 50.0 08/16/21 08:00 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, 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 08/16/21 08:00 Sodium 139 mmol/L (136-145) 08/22/21 05:17 Corrected Sodium TNP 08/22/21 05:17 Potassium 4.3 mmol/L (3.5-5.1) 08/22/21 05:17 Chloride 105 mmol/L (98-107) 08/22/21 05:17 Carbon Dioxide 29.8 mmol/L (21-32) 08/22/21 05:17 BUN 2 mg/dL (7-18) L 08/22/21 05:17 Creatinine 0.48 mg/dL (0.55-1.02) L 08/22/21 05:17 Est GFR (MDRD) Af Amer > 60 (>60) 08/22/21 05:17 Est GFR (MDRD) Non-Af > 60 (>60) 08/22/21 05:17 Glucose 93 mg/dL (65-99) 08/22/21 05:17 Lactic Acid 1.0 mmol/L (0.4-2.0) 08/17/21 09:33 Calcium 7.7 mg/dL (8.5-10.1) L 08/22/21 05:17 Corrected Calcium 9.7 mg/dL (8.5-10.1) 08/17/21 05:30 Magnesium 1.9 mg/dL (1.7-2.9) 08/22/21 05:17 Total Bilirubin 0.50 mg/dL (0.2-1.0) 08/17/21 05:30 AST 78 Units/L (15-37) H 08/17/21 05:30 ALT 52 Units/L (12-78) 08/17/21 05:30 Alkaline Phosphatase 85 Units/L (46-116) 08/17/21 05:30 Ammonia < 10 umol/L (11-32) L 08/15/21 11:39 Total Protein 5.2 g/dL (6.4-8.2) L 08/17/21 05:30 Albumin 2.1 g/dL (3.4-5.0) L 08/17/21 05:30 Globulin 3.1 g/dL (2.5-4.5) 08/17/21 05:30 Albumin/Globulin Ratio 0.7 Ratio (1.1-2.1) L 08/17/21 05:30 Urine Opiates Screen Negative (NEG=<300) 08/15/21 18:23 Urine Methadone Screen Negative (NEG=<300) 08/15/21 18:23 Ur Barbiturates Screen Positive (NEG=<200) A 08/15/21 18:23 Ur Phencyclidine Scrn Negative (NEG=<25) 08/15/21 18:23 Ur Amphetamines Screen Negative (NEG=<1000) 08/15/21 18:23 U Benzodiazepines Scrn Negative (NEG=<200) 08/15/21 18:23 Urine Cocaine Screen Negative (NEG=<300) 08/15/21 18:23 U Marijuana (THC) Screen Positive (NEG=<50) A 08/15/21 18:23 SARS CoV-2 RNA Rapid LAVERN Negative (NEGATIVE) 08/17/21 22:30 Tissue Pathology To follow 08/15/21 14:25 Plan (1) Pneumonia: Status: Acute Qualifiers: Laterality: bilateral Lung location: lower lobe of lung Pneumonia type: due to unspecified organism Qualified Code(s): J18.9 - Pneumonia, unspecified organism (2) Agitation: Status: Acute (3) SBO (small bowel obstruction): Status: Acute (4) Hypokalemia: Status: Acute (5) Appendicitis with abscess: Status: Acute (6) Schizophrenia: Status: Acute Qualifiers: Schizophrenia type: unspecified Qualified Code(s): F20.9 - Schizophrenia, unspecified (7) Anxiety: Status: Acute (8) Chronic pain: Status: Acute Qualifiers: Chronic pain type: other chronic pain Qualified Code(s): G89.29 - Other chronic pain (9) Hypomagnesemia: Status: Acute
[2021-08-22] MEDS ORDERED: BUTT CREAM (COMPOUND) ONE (13:54)
[2021-08-22] MEDS: BUTT CREAM (COMPOUND) TOP PRN ×2 (15:55→22:39)
[2021-08-22] MEDS: D5 NS + KCL 20 MEQ/L 1,000 ML IV SCH (16:02)
[2021-08-22] MEDS: MYSOLINE TAB 250 MG PO SCH (21:36)
[2021-08-23] MEDS: NORCO 5/325 MG TAB PO PRN ×4 (04:19→20:25)
[2021-08-23] MEDS: D5 NS + KCL 20 MEQ/L 1,000 ML IV SCH ×3 (04:21→20:35)
[2021-08-23] MEDS: DUONEB 0.5 MG/3 MG (3 mL) NEB SCH ×6 (05:09→21:45)
[2021-08-23] MEDS: ZOSYN VIAL 3.375 GRAMS 3.375 G in NS 100 ML IV + SPIKE MINIBAG* 100 ML IV SCH ×3 (05:16→21:48)
[2021-08-23 06:22] LABS: BASOPHILS % (AUTO) 0.2 % (0.2-1.0); EOSINOPHILS # (AUTO) 0.1 x10^3/uL (0.0-0.2); EOSINOPHILS % (AUTO) 0.7 % (0.9-2.9); HEMATOCRIT 32.6 % (36.0-47.0); HEMOGLOBIN 11.1 g/dL (12.0-16.0); LYMPHOCYTES # (AUTO) 1.4 X10^3/uL (1.3-2.9); LYMPHOCYTES % (AUTO) 11.4 % (21.0-51.0); MEAN CORPUSCULAR HEMOGLOBIN 33.3 pg (27.0-34.0); MEAN CORPUSCULAR VOLUME 98.2 fL (80.0-100.0); MEAN PLATELET VOLUME 9.2 fL (7.4-11.0); MONOCYTES # (AUTO) 1.3 x10^3/uL (0.3-0.8); MONOCYTES % (AUTO) 10.7 % (0.0-13.0); NEUTROPHILS # (AUTO) 9.3 x10^3/uL (2.2-4.8); RED BLOOD COUNT 3.32 X10^6/uL (3.5-5.4); RED CELL DISTRIBUTION WIDTH 15.6 % (11.6-16.5)
[2021-08-23 06:55] LABS: BLOOD UREA NITROGEN 3 mg/dL (7-18); CALCIUM 7.9 mg/dL (8.5-10.1); CHLORIDE 104 mmol/L (98-107); CREATININE 0.52 mg/dL (0.55-1.02); SODIUM 138 mmol/L (136-145); eGFR NON BLACK RACES > 60 (>60)
[2021-08-23 07:01] LABS: METAMYELOCYTES % 2; PLATELET MORPHOLOGY COMMENT NORMAL (NORMAL)
[2021-08-23] MEDS ORDERED: LEXAPRO ONE ×2 (09:25→19:52)
[2021-08-23] MEDS: PROTONIX INJ 40 MG VIAL IVP SCH (09:26)
[2021-08-23] MEDS: NICOTINE PATCH TD SCH (09:26)
[2021-08-23] MEDS: COGENTIN TAB 1 MG PO SCH ×2 (09:27→20:22)
[2021-08-23] MEDS: GEODON PO SCH ×2 (09:27→20:24)
[2021-08-23] MEDS: LEXAPRO PO SCH ×2 (09:28→20:25)
[2021-08-23] MEDS: KLONOPIN TAB 0.5 MG PO SCH ×2 (09:29→20:24)
--- NOTE | 2021-08-23 09:31 | DR.PROGNOT ---
Hospital Progress Notes - Progress Note for Day of: Progress Note Date: 08/23/21 - Chief Complaint Chief Complaint: post op day 7. laparotomy , appendectomy , drainage of appediceal abscess . alert , cooperative today.. tolerating oral intake. only mild abdominal pain .. clean incision . awaiting placement .. - Past Medical Family Social History Past Med/Fam/Surg Hx: No changes since H&P Allergies: Allergies ciprofloxacin [From Cipro] Allergy (Verified 08/15/21 12:57) aspirin Adverse Reaction (Verified 08/15/21 01:19) NSAIDS (Non-Steroidal Anti-Inflamma Adverse Reaction (Verified 08/15/21 01:19) Sulfa (Sulfonamide Antibiotics) [SULFA] Adverse Reaction (Verified 08/15/21 01:19) - Review Of Systems ROS: No change since H&P - Vital Signs Vital Signs: Temperature 97.7 F Pulse Rate [Right] 91 Pulse Rate 86 Respiratory Rate 18 Blood Pressure [Left Arm] 179/84 Blood Pressure [Right Arm] 126/66 Blood Pressure 101/56 O2 Sat by Pulse Oximetry 93 - Physical Exam Oriented: Unable to test Eyes: Normal Ear: Normal Nose: Normal Throat: Dry Respiratory: Generalized, Diminished Cardiovascular: Normal : Normal GI:Auscultation: Normal GI:Palpation: Normal GI: Tenderness: Normal, Other (incision noted with timoteo, soft, BS+) Skin: Decreased Turgur Psychiatric: Normal, Anxiety (stable compared with last few days ), Depression, Agitation Mood Description: Calm Affect: Flat Speech Pattern: Clear, Appropriate - Laboratory and Diagnostics Result Diagrams: 08/23/21 05:39 08/23/21 05:39 Labs: 08/15/21 14:25 Abdomen Wound Gram Stain - Final 08/15/21 14:25 Abdomen Wound Culture - Final Enterobacter Aerogenes 08/15/21 14:25 Abdomen Wound Culture - Final Pseudomonas Aeruginosa Laboratory WBC 12.0 X10^3/uL (3.6-10.0) H 08/23/21 05:39 RBC 3.32 X10^6/uL (3.5-5.4) L 08/23/21 05:39 Hgb 11.1 g/dL (12.0-16.0) L 08/23/21 05:39 Hct 32.6 % (36.0-47.0) L 08/23/21 05:39 MCV 98.2 fL (80.0-100.0) 08/23/21 05:39 MCH 33.3 pg (27.0-34.0) 08/23/21 05:39 MCHC 34.0 g/dL (33.0-35.0) 08/23/21 05:39 RDW 15.6 % (11.6-16.5) 08/23/21 05:39 Plt Count 282 X10^3/uL (150.0-450.0) 08/23/21 05:39 Plt Count Comment Adequate (ADEQUATE) 08/23/21 05:39 MPV 9.2 fL (7.4-11.0) 08/23/21 05:39 Neut % (Auto) 77.0 % (42.0-75.0) H 08/23/21 05:39 Lymph % (Auto) 11.4 % (21.0-51.0) L 08/23/21 05:39 [place] % (Auto) 10.7 % (0.0-13.0) 08/23/21 05:39 Eos % (Auto) 0.7 % (0.9-2.9) L 08/23/21 05:39 Baso % (Auto) 0.2 % (0.2-1.0) 08/23/21 05:39 Neut # (Auto) 9.3 x10^3/uL (2.2-4.8) H 08/23/21 05:39 Lymph # (Auto) 1.4 X10^3/uL (1.3-2.9) 08/23/21 05:39 [place] # (Auto) 1.3 x10^3/uL (0.3-0.8) H 08/23/21 05:39 Eos # (Auto) 0.1 x10^3/uL (0.0-0.2) 08/23/21 05:39 Baso # (Auto) 0.0 X10^3/uL (0.0-0.1) 08/23/21 05:39 Absolute Nucleated RBC 0.0 /100WBC 08/23/21 05:39 Total Counted 100 08/23/21 05:39 Neutrophils % (Manual) 72 % (39-76) 08/23/21 05:39 Band Neutrophils % 1 % (0-10) 08/20/21 05:38 Lymphocytes % (Manual) 18 % (13-43) 08/23/21 05:39 Monocytes % (Manual) 8 % (4-9) 08/23/21 05:39 Metamyelocytes % 2 08/23/21 05:39 Myelocytes % 1 08/20/21 05:38 Promyelocytes % 1 08/16/21 06:00 Plt Morphology Comment Normal (NORMAL) 08/23/21 05:39 RBC Morphology Normal (NORMAL) 08/23/21 05:39 Target Cells Slight A 08/16/21 06:00 Stomatocytes Slight A 08/16/21 06:00 PT 12.3 SECONDS (11.8-14.3) 08/15/21 08:46 INR Target Range - 08/15/21 08:46 INR 0.96 (0.8-1.3) 08/15/21 08:46 Sample Site Rrad 08/16/21 08:00 ABG pH 7.300 (7.35-7.45) L 08/16/21 08:00 ABG pCO2 61.0 mmHg (35.0-45.0) H* 08/16/21 08:00 ABG pO2 63.0 mmHg (80.0-100.0) L 08/16/21 08:00 ABG HCO3 30.0 mmol/L (22-26) H 08/16/21 08:00 ABG O2 Saturation 89.0 % (90-100) L 08/16/21 08:00 ABG Base Excess 2.2 mmol/L (-2.0-2.0) H 08/16/21 08:00 Mac Test Pos 08/16/21 08:00 A-a Gradient 217.0 mmHg 08/16/21 08:00 FiO2 50.0 08/16/21 08:00 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, 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 08/16/21 08:00 Sodium 138 mmol/L (136-145) 08/23/21 05:39 Corrected Sodium TNP 08/23/21 05:39 Potassium 3.6 mmol/L (3.5-5.1) 08/23/21 05:39 Chloride 104 mmol/L (98-107) 08/23/21 05:39 Carbon Dioxide 27.0 mmol/L (21-32) 08/23/21 05:39 BUN 3 mg/dL (7-18) L 08/23/21 05:39 Creatinine 0.52 mg/dL (0.55-1.02) L 08/23/21 05:39 Est GFR (MDRD) Af Amer > 60 (>60) 08/23/21 05:39 Est GFR (MDRD) Non-Af > 60 (>60) 08/23/21 05:39 Glucose 101 mg/dL (65-99) H 08/23/21 05:39 Lactic Acid 1.0 mmol/L (0.4-2.0) 08/17/21 09:33 Calcium 7.9 mg/dL (8.5-10.1) L 08/23/21 05:39 Corrected Calcium 9.7 mg/dL (8.5-10.1) 08/17/21 05:30 Magnesium 1.9 mg/dL (1.7-2.9) 08/22/21 05:17 Total Bilirubin 0.50 mg/dL (0.2-1.0) 08/17/21 05:30 AST 78 Units/L (15-37) H 08/17/21 05:30 ALT 52 Units/L (12-78) 08/17/21 05:30 Alkaline Phosphatase 85 Units/L (46-116) 08/17/21 05:30 Ammonia < 10 umol/L (11-32) L 08/15/21 11:39 Total Protein 5.2 g/dL (6.4-8.2) L 08/17/21 05:30 Albumin 2.1 g/dL (3.4-5.0) L 08/17/21 05:30 Globulin 3.1 g/dL (2.5-4.5) 08/17/21 05:30 Albumin/Globulin Ratio 0.7 Ratio (1.1-2.1) L 08/17/21 05:30 Urine Opiates Screen Negative (NEG=<300) 08/15/21 18:23 Urine Methadone Screen Negative (NEG=<300) 08/15/21 18:23 Ur Barbiturates Screen Positive (NEG=<200) A 08/15/21 18:23 Ur Phencyclidine Scrn Negative (NEG=<25) 08/15/21 18:23 Ur Amphetamines Screen Negative (NEG=<1000) 08/15/21 18:23 U Benzodiazepines Scrn Negative (NEG=<200) 08/15/21 18:23 Urine Cocaine Screen Negative (NEG=<300) 08/15/21 18:23 U Marijuana (THC) Screen Positive (NEG=<50) A 08/15/21 18:23 SARS CoV-2 RNA Rapid LAVERN Negative (NEGATIVE) 08/17/21 22:30 Tissue Pathology To follow 08/15/21 14:25 - Assessment and Plan 1: s/p laparotomy , appendectomy for acute ruptured appedicitis with RLQ abscess . SBO, abdominal adhesions . depression and anxiety . Schizophrenia . PO agitation, confusion . same post operative care ,control of agitation ,. supportive bj and placement when ready ..
[2021-08-23] MEDS: LOVENOX INJ 40 MG SYR SC SCH (09:34)
[2021-08-23] MEDS: PULMICORT NEB TX 0.5 MG NEB SCH ×2 (09:46→21:45)
--- NOTE | 2021-08-23 11:56 | PCM.PROG ---
Progress Note - Progress Note for Day of Date of Exam: 08/23/21 - Subjective Subjective: IS A 61 YEAR OLD PATIENT OF AND . SHE IS BEING TREATED FOR BILATERAL LOWER LOBE PNEUMONIA, APPENDICITIS WITH ABSCESS, SBO, CHRONIC PAIN. PMH OF HTN, SCHIZOPHRENIA, AND ANXIETY. SHE HAD EXPLORATORY LAP, APPENDECTOMY, DRAINAGE OF APPENDICEAL ABSCESS, RELEASE OF M ECHANICAL SBO, AND LYSIS OF ABDOMINAL ADHESIONS ON 08/15/21. TODAY, SHE IS ALERT AND ORIENTED, LYING IN BED ON MORNING ROUNDS. SHE REPORTS LOWER BACK PAIN TODAY, BUT DENIES OTHER COMPLAINTS. NURSING STAFF REPORTS THAT SHE HAS BEEN AGITATED AT TIMES. SHE IS TOLERATING FOOD AND LIQUIDS WELL AND HAVING NORMAL BOWEL MOVEMENTS. ON EXAMINATION, HEART IS REGULAR IN RATE AND RHYTHM. BILATERAL LUNGS NOTED WITH DIMINISHED LUNG SOUNDS THROUGHOUT. ABDOMEN ROUND, SOFT, AND NOTED TO HAVE INCISION WITH TIMOTEO. HER VITALS THIS MORNING ARE: 97.7-87-20-91%RA-159/91. LABS OBTAINED. ABNORMAL LAB VALUES INCLUDE THE FOLLOWING: WBC 12.0, RBC 3.32, HGB 11.1, HCT 32.6, BUN 3, CREATININE 0.52, CALCIUM 7.9. SHE IS CURRENTLY RECEIVING D5NS WITH 20MEQ KCL AT 50 ML/HR, ZOSYN 3.375G IV TID, DUONEBS Q4H, PULMICORT NEBS BID, LOVENOX 40MG SC DAILY, NORCO 5/325MG PO Q6H PRN, ZOFRAN 2MG IV Q4H PRN, PROTONIX 40MG IV DAILY, THE POTASSIUM AND MAGNESIUM PROTOCOLS, NICOTINE PATCH, AND SEVERAL BEHAVIORAL MEDS. WE WILL CONTINUE WITH CURRENT PLAN OF CARE TODAY. SHE IS AWAITING PLACEMENT AT [facility]. WE WILL CONTINUE PT/OT AND SURGEON WILL CONTINUE TO FOLLOW. OTHERWISE, WE PLAN TO FOLLOW UP WITH AM LABS AND CONTINUE TO MONITOR. TIME SPENT ON CLINICAL ASSESSMENT, REVIEWING LABS AND IMAGING, DECISION MAKING, AND DOCU MENTATION GREATER THAN 45 MINUTES. - Past Medical Family Social History Past Med/Fam/Surg Hx: No changes since H&P Allergies: Allergies ciprofloxacin [From Cipro] Allergy (Verified 08/15/21 12:57) aspirin Adverse Reaction (Verified 08/15/21 01:19) NSAIDS (Non-Steroidal Anti-Inflamma Adverse Reaction (Verified 08/15/21 01:19) Sulfa (Sulfonamide Antibiotics) [SULFA] Adverse Reaction (Verified 08/15/21 01:19) - Review of Systems ROS: No change since H&P - Vital Signs and I&O's Vital Signs: Temperature 97.7 F Pulse Rate [Right] 87 Pulse Rate 84 Respiratory Rate 18 Blood Pressure [Left Arm] 159/91 Blood Pressure [Right Arm] 126/66 Blood Pressure 101/56 O2 Sat by Pulse Oximetry 95 Intake and Output: Intake & Output 08/20/21 08/21/21 08/22/21 08/23/21 11:59 11:59 11:59 11:59 Intake Total 1400 / 1400 2958 / 2958 3275 / 3275 2333 / 2333 Output Total 6350 / 6350 2595 / 2595 500 / 500 Balance -4950 / -4950 363 / 363 2775 / 2775 2333 / 2333 - Physical Exam Oriented: Person, Place Eyes: Normal Ear: Normal Nose: Normal Throat: Dry Respiratory: Generalized, Diminished Cardiovascular: Normal : Normal Auscultation: Bowel Sounds: Normal Palpation: Normal Tenderness: Normal, Other (incision noted with timoteo, soft, BS+) Skin: Decreased Turgur Psychiatric: Normal, Anxiety (stable compared with last few days ), Depression, Agitation Mood Description: Calm Affect: Flat Speech Pattern: Clear, Appropriate - Laboratory and Diagnostics Result Diagrams: 08/23/21 05:39 08/23/21 05:39 Labs: 08/15/21 14:25 Abdomen Wound Gram Stain - Final 08/15/21 14:25 Abdomen Wound Culture - Final Enterobacter Aerogenes 08/15/21 14:25 Abdomen Wound Culture - Final Pseudomonas Aeruginosa Laboratory WBC 12.0 X10^3/uL (3.6-10.0) H 08/23/21 05:39 RBC 3.32 X10^6/uL (3.5-5.4) L 08/23/21 05:39 Hgb 11.1 g/dL (12.0-16.0) L 08/23/21 05:39 Hct 32.6 % (36.0-47.0) L 08/23/21 05:39 MCV 98.2 fL (80.0-100.0) 08/23/21 05:39 MCH 33.3 pg (27.0-34.0) 08/23/21 05:39 MCHC 34.0 g/dL (33.0-35.0) 08/23/21 05:39 RDW 15.6 % (11.6-16.5) 08/23/21 05:39 Plt Count 282 X10^3/uL (150.0-450.0) 08/23/21 05:39 Plt Count Comment Adequate (ADEQUATE) 08/23/21 05:39 MPV 9.2 fL (7.4-11.0) 08/23/21 05:39 Neut % (Auto) 77.0 % (42.0-75.0) H 08/23/21 05:39 Lymph % (Auto) 11.4 % (21.0-51.0) L 08/23/21 05:39 [place] % (Auto) 10.7 % (0.0-13.0) 08/23/21 05:39 Eos % (Auto) 0.7 % (0.9-2.9) L 08/23/21 05:39 Baso % (Auto) 0.2 % (0.2-1.0) 08/23/21 05:39 Neut # (Auto) 9.3 x10^3/uL (2.2-4.8) H 08/23/21 05:39 Lymph # (Auto) 1.4 X10^3/uL (1.3-2.9) 08/23/21 05:39 [place] # (Auto) 1.3 x10^3/uL (0.3-0.8) H 08/23/21 05:39 Eos # (Auto) 0.1 x10^3/uL (0.0-0.2) 08/23/21 05:39 Baso # (Auto) 0.0 X10^3/uL (0.0-0.1) 08/23/21 05:39 Absolute Nucleated RBC 0.0 /100WBC 08/23/21 05:39 Total Counted 100 08/23/21 05:39 Neutrophils % (Manual) 72 % (39-76) 08/23/21 05:39 Band Neutrophils % 1 % (0-10) 08/20/21 05:38 Lymphocytes % (Manual) 18 % (13-43) 08/23/21 05:39 Monocytes % (Manual) 8 % (4-9) 08/23/21 05:39 Metamyelocytes % 2 08/23/21 05:39 Myelocytes % 1 08/20/21 05:38 Promyelocytes % 1 08/16/21 06:00 Plt Morphology Comment Normal (NORMAL) 08/23/21 05:39 RBC Morphology Normal (NORMAL) 08/23/21 05:39 Target Cells Slight A 08/16/21 06:00 Stomatocytes Slight A 08/16/21 06:00 PT 12.3 SECONDS (11.8-14.3) 08/15/21 08:46 INR Target Range - 08/15/21 08:46 INR 0.96 (0.8-1.3) 08/15/21 08:46 Sample Site Rrad 08/16/21 08:00 ABG pH 7.300 (7.35-7.45) L 08/16/21 08:00 ABG pCO2 61.0 mmHg (35.0-45.0) H* 08/16/21 08:00 ABG pO2 63.0 mmHg (80.0-100.0) L 08/16/21 08:00 ABG HCO3 30.0 mmol/L (22-26) H 08/16/21 08:00 ABG O2 Saturation 89.0 % (90-100) L 08/16/21 08:00 ABG Base Excess 2.2 mmol/L (-2.0-2.0) H 08/16/21 08:00 Mac Test Pos 08/16/21 08:00 A-a Gradient 217.0 mmHg 08/16/21 08:00 FiO2 50.0 08/16/21 08:00 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, 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 08/16/21 08:00 Sodium 138 mmol/L (136-145) 08/23/21 05:39 Corrected Sodium TNP 08/23/21 05:39 Potassium 3.6 mmol/L (3.5-5.1) 08/23/21 05:39 Chloride 104 mmol/L (98-107) 08/23/21 05:39 Carbon Dioxide 27.0 mmol/L (21-32) 08/23/21 05:39 BUN 3 mg/dL (7-18) L 08/23/21 05:39 Creatinine 0.52 mg/dL (0.55-1.02) L 08/23/21 05:39 Est GFR (MDRD) Af Amer > 60 (>60) 08/23/21 05:39 Est GFR (MDRD) Non-Af > 60 (>60) 08/23/21 05:39 Glucose 101 mg/dL (65-99) H 08/23/21 05:39 Lactic Acid 1.0 mmol/L (0.4-2.0) 08/17/21 09:33 Calcium 7.9 mg/dL (8.5-10.1) L 08/23/21 05:39 Corrected Calcium 9.7 mg/dL (8.5-10.1) 08/17/21 05:30 Magnesium 1.9 mg/dL (1.7-2.9) 08/22/21 05:17 Total Bilirubin 0.50 mg/dL (0.2-1.0) 08/17/21 05:30 AST 78 Units/L (15-37) H 08/17/21 05:30 ALT 52 Units/L (12-78) 08/17/21 05:30 Alkaline Phosphatase 85 Units/L (46-116) 08/17/21 05:30 Ammonia < 10 umol/L (11-32) L 08/15/21 11:39 Total Protein 5.2 g/dL (6.4-8.2) L 08/17/21 05:30 Albumin 2.1 g/dL (3.4-5.0) L 08/17/21 05:30 Globulin 3.1 g/dL (2.5-4.5) 08/17/21 05:30 Albumin/Globulin Ratio 0.7 Ratio (1.1-2.1) L 08/17/21 05:30 Urine Opiates Screen Negative (NEG=<300) 08/15/21 18:23 Urine Methadone Screen Negative (NEG=<300) 08/15/21 18:23 Ur Barbiturates Screen Positive (NEG=<200) A 08/15/21 18:23 Ur Phencyclidine Scrn Negative (NEG=<25) 08/15/21 18:23 Ur Amphetamines Screen Negative (NEG=<1000) 08/15/21 18:23 U Benzodiazepines Scrn Negative (NEG=<200) 08/15/21 18:23 Urine Cocaine Screen Negative (NEG=<300) 08/15/21 18:23 U Marijuana (THC) Screen Positive (NEG=<50) A 08/15/21 18:23 SARS CoV-2 RNA Rapid LAVERN Negative (NEGATIVE) 08/17/21 22:30 Tissue Pathology To follow 08/15/21 14:25 - Plan (1) Pneumonia Status: Acute Qualifiers: Pneumonia type: due to unspecified organism Laterality: bilateral Lung location: lower lobe of lung Qualified Code(s): J18.9 - Pneumonia, unspecified organism (2) Appendicitis with abscess Status: Acute (3) SBO (small bowel obstruction) Status: Acute (4) Hypokalemia Status: Acute (5) Chronic pain Status: Chronic Qualifiers: Chronic pain type: other chronic pain (6) Schizophrenia Status: Chronic Qualifiers: Schizophrenia type: unspecified (7) Anxiety Status: Chronic
[2021-08-23] MEDS: MYSOLINE TAB 250 MG PO SCH (20:24)
[2021-08-23] MEDS: D5 1/2 NS 1,000 ML 1,000 ML with POTASSIUM CHLORIDE INJ 40 MEQ VIAL 40 MEQ IV SCH ×2 (20:33)
[2021-08-24] MEDS: NORCO 5/325 MG TAB PO PRN ×4 (01:52→18:04)
[2021-08-24] MEDS: ZOSYN VIAL 3.375 GRAMS 3.375 G in NS 100 ML IV + SPIKE MINIBAG* 100 ML IV SCH ×3 (05:17→21:00)
[2021-08-24] MEDS: D5 NS + KCL 20 MEQ/L 1,000 ML IV SCH ×3 (05:18→19:30)
[2021-08-24] MEDS: DUONEB 0.5 MG/3 MG (3 mL) NEB SCH ×5 (05:55→21:04)
[2021-08-24] MEDS ORDERED: LEXAPRO ONE ×2 (07:59→20:16)
[2021-08-24 08:31] LABS: BASOPHILS # (AUTO) 0.3 X10^3/uL (0.0-0.1); BASOPHILS % (AUTO) 2.8 % (0.2-1.0); EOSINOPHILS # (AUTO) 0.1 x10^3/uL (0.0-0.2); EOSINOPHILS % (AUTO) 1.4 % (0.9-2.9); HEMATOCRIT 34.3 % (36.0-47.0); HEMOGLOBIN 11.5 g/dL (12.0-16.0); LYMPHOCYTES # (AUTO) 1.2 X10^3/uL (1.3-2.9); LYMPHOCYTES % (AUTO) 13.4 % (21.0-51.0); MEAN CORPUSCULAR HGB CONC 33.5 g/dL (33.0-35.0); MEAN CORPUSCULAR VOLUME 98.3 fL (80.0-100.0); MEAN PLATELET VOLUME 9.2 fL (7.4-11.0); MONOCYTES # (AUTO) 1.2 x10^3/uL (0.3-0.8); NEUTROPHILS # (AUTO) 6.1 x10^3/uL (2.2-4.8); NEUTROPHILS % (AUTO) 68.4 % (42.0-75.0); RED BLOOD COUNT 3.49 X10^6/uL (3.5-5.4); RED CELL DISTRIBUTION WIDTH 15.6 % (11.6-16.5); WHITE BLOOD COUNT 8.8 X10^3/uL (3.6-10.0)
[2021-08-24 08:43] LABS: ALANINE AMINOTRANSFERASE 50 Units/L (12-78); ALBUMIN 2.1 g/dL (3.4-5.0); ALKALINE PHOSPHATASE 105 Units/L (46-116); ASPARTATE AMINO TRANSFERASE 27 Units/L (15-37); BLOOD UREA NITROGEN 3 mg/dL (7-18); CALCIUM 7.9 mg/dL (8.5-10.1); CARBON DIOXIDE 25.6 mmol/L (21-32); CHLORIDE 104 mmol/L (98-107); COR CA(FOR HYPOALB) 9.4 mg/dL (8.5-10.1); CREATININE 0.59 mg/dL (0.55-1.02); SODIUM 138 mmol/L (136-145); TOTAL PROTEIN 5.3 g/dL (6.4-8.2); eGFR NON BLACK RACES > 60 (>60)
[2021-08-24] MEDS: NICOTINE PATCH TD SCH (08:46)
[2021-08-24] MEDS: PROTONIX INJ 40 MG VIAL IVP SCH (08:49)
[2021-08-24] MEDS: LEXAPRO PO SCH ×2 (08:49→20:58)
[2021-08-24] MEDS: GEODON PO SCH ×2 (08:50→20:58)
[2021-08-24] MEDS: COGENTIN TAB 1 MG PO SCH ×2 (08:51→20:58)
[2021-08-24] MEDS: KLONOPIN TAB 0.5 MG PO SCH ×2 (08:53→20:58)
[2021-08-24] MEDS: LOVENOX INJ 40 MG SYR SC SCH (08:55)
--- NOTE | 2021-08-24 11:02 | DR.PROGNOT ---
Hospital Progress Notes - Progress Note for Day of: Progress Note Date: 08/24/21 - Chief Complaint Chief Complaint: doing much better . alert and cooperative . normal CBC , BUN/CREAT. afebrile - Past Medical Family Social History Past Med/Fam/Surg Hx: No changes since H&P Allergies: Allergies ciprofloxacin [From Cipro] Allergy (Verified 08/15/21 12:57) aspirin Adverse Reaction (Verified 08/15/21 01:19) NSAIDS (Non-Steroidal Anti-Inflamma Adverse Reaction (Verified 08/15/21 01:19) Sulfa (Sulfonamide Antibiotics) [SULFA] Adverse Reaction (Verified 08/15/21 01:19) - Review Of Systems ROS: No change since H&P - Vital Signs Vital Signs: Temperature 98.6 F Pulse Rate [Right] 95 Pulse Rate 96 Respiratory Rate 20 Blood Pressure [Left Arm] 140/89 Blood Pressure [Right Arm] 128/63 Blood Pressure 101/56 O2 Sat by Pulse Oximetry 95 - Physical Exam Oriented: Person, Place Eyes: Normal Ear: Normal Nose: Normal Throat: Dry Respiratory: Generalized, Diminished Cardiovascular: Normal : Normal GI:Auscultation: Normal GI:Palpation: Normal GI: Tenderness: Normal, Other (incision noted with timoteo, soft, BS+) Skin: Decreased Turgur Psychiatric: Normal, Anxiety (stable compared with last few days ), Depression, Agitation Mood Description: Calm Affect: Flat Speech Pattern: Clear, Appropriate - Laboratory and Diagnostics Result Diagrams: 08/24/21 08:20 08/24/21 08:20 Labs: 08/15/21 14:25 Abdomen Wound Gram Stain - Final 08/15/21 14:25 Abdomen Wound Culture - Final Enterobacter Aerogenes 08/15/21 14:25 Abdomen Wound Culture - Final Pseudomonas Aeruginosa Laboratory WBC 8.8 X10^3/uL (3.6-10.0) 08/24/21 08:20 RBC 3.49 X10^6/uL (3.5-5.4) L 08/24/21 08:20 Hgb 11.5 g/dL (12.0-16.0) L 08/24/21 08:20 Hct 34.3 % (36.0-47.0) L 08/24/21 08:20 MCV 98.3 fL (80.0-100.0) 08/24/21 08:20 MCH 33.0 pg (27.0-34.0) 08/24/21 08:20 MCHC 33.5 g/dL (33.0-35.0) 08/24/21 08:20 RDW 15.6 % (11.6-16.5) 08/24/21 08:20 Plt Count 318 X10^3/uL (150.0-450.0) 08/24/21 08:20 Plt Count Comment Adequate (ADEQUATE) 08/23/21 05:39 MPV 9.2 fL (7.4-11.0) 08/24/21 08:20 Neut % (Auto) 68.4 % (42.0-75.0) 08/24/21 08:20 Lymph % (Auto) 13.4 % (21.0-51.0) L 08/24/21 08:20 [place] % (Auto) 14.0 % (0.0-13.0) H 08/24/21 08:20 Eos % (Auto) 1.4 % (0.9-2.9) 08/24/21 08:20 Baso % (Auto) 2.8 % (0.2-1.0) H 08/24/21 08:20 Neut # (Auto) 6.1 x10^3/uL (2.2-4.8) H 08/24/21 08:20 Lymph # (Auto) 1.2 X10^3/uL (1.3-2.9) L 08/24/21 08:20 [place] # (Auto) 1.2 x10^3/uL (0.3-0.8) H 08/24/21 08:20 Eos # (Auto) 0.1 x10^3/uL (0.0-0.2) 08/24/21 08:20 Baso # (Auto) 0.3 X10^3/uL (0.0-0.1) H 08/24/21 08:20 Absolute Nucleated RBC 0.1 /100WBC 08/24/21 08:20 Total Counted 100 08/23/21 05:39 Neutrophils % (Manual) 72 % (39-76) 08/23/21 05:39 Band Neutrophils % 1 % (0-10) 08/20/21 05:38 Lymphocytes % (Manual) 18 % (13-43) 08/23/21 05:39 Monocytes % (Manual) 8 % (4-9) 08/23/21 05:39 Metamyelocytes % 2 08/23/21 05:39 Myelocytes % 1 08/20/21 05:38 Promyelocytes % 1 08/16/21 06:00 Plt Morphology Comment Normal (NORMAL) 08/23/21 05:39 RBC Morphology Normal (NORMAL) 08/23/21 05:39 Target Cells Slight A 08/16/21 06:00 Stomatocytes Slight A 08/16/21 06:00 PT 12.3 SECONDS (11.8-14.3) 08/15/21 08:46 INR Target Range - 08/15/21 08:46 INR 0.96 (0.8-1.3) 08/15/21 08:46 Sample Site Rrad 08/16/21 08:00 ABG pH 7.300 (7.35-7.45) L 08/16/21 08:00 ABG pCO2 61.0 mmHg (35.0-45.0) H* 08/16/21 08:00 ABG pO2 63.0 mmHg (80.0-100.0) L 08/16/21 08:00 ABG HCO3 30.0 mmol/L (22-26) H 08/16/21 08:00 ABG O2 Saturation 89.0 % (90-100) L 08/16/21 08:00 ABG Base Excess 2.2 mmol/L (-2.0-2.0) H 08/16/21 08:00 Mac Test Pos 08/16/21 08:00 A-a Gradient 217.0 mmHg 08/16/21 08:00 FiO2 50.0 08/16/21 08:00 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, hw group cio 08/16/21 08:00 Sodium 138 mmol/L (136-145) 08/24/21 08:20 Corrected Sodium TNP 08/24/21 08:20 Potassium 3.6 mmol/L (3.5-5.1) 08/24/21 08:20 Chloride 104 mmol/L (98-107) 08/24/21 08:20 Carbon Dioxide 25.6 mmol/L (21-32) 08/24/21 08:20 BUN 3 mg/dL (7-18) L 08/24/21 08:20 Creatinine 0.59 mg/dL (0.55-1.02) 08/24/21 08:20 Est GFR (MDRD) Af Amer > 60 (>60) 08/24/21 08:20 Est GFR (MDRD) Non-Af > 60 (>60) 08/24/21 08:20 Glucose 107 mg/dL (65-99) H 08/24/21 08:20 Lactic Acid 1.0 mmol/L (0.4-2.0) 08/17/21 09:33 Calcium 7.9 mg/dL (8.5-10.1) L 08/24/21 08:20 Corrected Calcium 9.4 mg/dL (8.5-10.1) 08/24/21 08:20 Magnesium 1.9 mg/dL (1.7-2.9) 08/22/21 05:17 Total Bilirubin 0.30 mg/dL (0.2-1.0) 08/24/21 08:20 AST 27 Units/L (15-37) 08/24/21 08:20 ALT 50 Units/L (12-78) 08/24/21 08:20 Alkaline Phosphatase 105 Units/L (46-116) 08/24/21 08:20 Ammonia < 10 umol/L (11-32) L 08/15/21 11:39 Total Protein 5.3 g/dL (6.4-8.2) L 08/24/21 08:20 Albumin 2.1 g/dL (3.4-5.0) L 08/24/21 08:20 Globulin 3.2 g/dL (2.5-4.5) 08/24/21 08:20 Albumin/Globulin Ratio 0.7 Ratio (1.1-2.1) L 08/24/21 08:20 Urine Opiates Screen Negative (NEG=<300) 08/15/21 18:23 Urine Methadone Screen Negative (NEG=<300) 08/15/21 18:23 Ur Barbiturates Screen Positive (NEG=<200) A 08/15/21 18:23 Ur Phencyclidine Scrn Negative (NEG=<25) 08/15/21 18:23 Ur Amphetamines Screen Negative (NEG=<1000) 08/15/21 18:23 U Benzodiazepines Scrn Negative (NEG=<200) 08/15/21 18:23 Urine Cocaine Screen Negative (NEG=<300) 08/15/21 18:23 U Marijuana (THC) Screen Positive (NEG=<50) A 08/15/21 18:23 SARS CoV-2 RNA Rapid LAVERN Negative (NEGATIVE) 08/17/21 22:30 Tissue Pathology To follow 08/15/21 14:25 - Assessment and Plan 1: s/p laparotomy , appendectomy for acute ruptured appedicitis with RLQ abscess . SBO, abdominal adhesions . depression and anxiety . Schizophrenia . PO agitation, confusion . same post operative care ,control of agitation ,. horn pportive bj and placement when ready .. - Problem Patient Problems: Patient Problems Pneumonia (Acute) J18.9 Chronic pain (Chronic) G89.29 Anxiety (Chronic) F41.9 Schizophrenia (Chronic) F20.9 Appendicitis with abscess (Acute) K35.33 Hypokalemia (Acute) E87.6 SBO (small bowel obstruction) (Acute) K56.609
--- NOTE | 2021-08-24 11:48 | PCM.PROG ---
Progress Note - Progress Note for Day of Date of Exam: 08/24/21 - Subjective Subjective: IS A 61 YEAR OLD PATIENT OF AND . SHE IS BEING TREATED FOR BILATERAL LOWER LOBE PNEUMONIA, APPENDICITIS WITH ABSCESS, SBO, CHRONIC PAIN. PMH OF HTN, SCHIZOPHRENIA, AND ANXIETY. SHE HAD EXPLORATORY LAP, APPENDECTOMY, DRAINAGE OF APPENDICEAL ABSCESS, RELEASE OF M ECHANICAL SBO, AND LYSIS OF ABDOMINAL ADHESIONS ON 08/15/21. TODAY, SHE IS ALERT AND ORIENTED, LYING IN BED ON MORNING ROUNDS. SHE DENIES COMPLAINTS THIS MORNING. NURSING STAFF REPORTS THAT SHE HAS BEEN AGITATED AT TIMES. SHE IS TOLERATING FOOD AND LIQUIDS WELL AND HAVING NORMAL BOWEL MOVEMENTS. ON E XAMINATION, HEART IS REGULAR IN RATE AND RHYTHM. BILATERAL LUNGS NOTED WITH DIMINISHED LUNG SOUNDS THROUGHOUT. ABDOMEN ROUND, SOFT, AND NOTED TO HAVE INCISION WITH TIMOTEO. HER VITALS THIS MORNING ARE: 97.3-99-20-93%-186/140/89. LABS OBTAINED. ABNORMAL LAB VALUES INCLUDE THE FOLLOWING: RBC 3.49, HGB 11.5, HCT 34.3, BUN 3, GLUCOSE 107, CALCIUM 7.9, TOTAL PROTEIN 5.3, ALBUMIN 2.1. SHE IS CURRENTLY RECEIVING D5NS WITH 20MEQ KCL AT 50 ML/HR, ZOSYN 3.375G IV TID, DUONEBS Q4H, PULMICORT NEBS BID, LOVENOX 40MG SC DAILY, NORCO 5/325MG PO Q6H PRN, ZOFRAN 2MG IV Q4H PRN, PROTONIX 40MG IV DAILY, THE POTASSIUM AND MAGNESIUM PROTOCOLS, NICOTINE PATCH, AND SEVERAL BEHAVIORAL MEDS. WE WILL CONTINUE WITH RRENT PLAN OF CARE TODAY. SHE IS AWAITING PLACEMENT AT [facility]. WE WILL CONTINUE PT/OT AND SURGEON WILL CONTINUE TO FOLLOW. OTHERWISE, WE PLAN TO FOLLOW UP WITH AM LABS AND CONTINUE TO MONITOR. TIME SPENT ON CLINICAL ASSESSMENT, REVIEWING LABS AND IMAGING, DECISION MAKING, AND DOCUMENTATION GREATER THAN 45 MINUTES. - Past Medical Family Social History Past Med/Fam/Surg Hx: No changes since H&P Allergies: Allergies ciprofloxacin [From Cipro] Allergy (Verified 08/15/21 12:57) aspirin Adverse Reaction (Verified 08/15/21 01:19) NSAIDS (Non-Steroidal Anti-Inflamma Adverse Reaction (Verified 08/15/21 01:19) Sulfa (Sulfonamide Antibiotics) [SULFA] Adverse Reaction (Verified 08/15/21 01:19) - Review of Systems ROS: No change since H&P - Vital Signs and I&O's Vital Signs: Temperature 97.3 F Pulse Rate [Right] 99 Pulse Rate 96 Respiratory Rate 20 Blood Pressure [Left Arm] 186/103 Blood Pressure [Right Arm] 128/63 Blood Pressure 101/56 O2 Sat by Pulse Oximetry 95 Intake and Output: Intake & Output 08/21/21 08/22/21 08/23/21 08/24/21 11:59 11:59 11:59 11:59 Intake Total 2958 / 2958 3275 / 3275 2333 / 2333 3293 / 3293 Output Total 2595 / 2595 500 / 500 Balance 363 / 363 2775 / 2775 2333 / 2333 3293 / 3293 - Physical Exam Oriented: Person, Place Eyes: Normal Ear: Normal Nose: Normal Throat: Dry Respiratory: Generalized, Diminished Cardiovascular: Normal : Normal Auscultation: Bowel Sounds: Normal Tenderness: Normal, Other (incision noted with timoteo, soft, BS+) Skin: Decreased Turgur Psychiatric: Normal, Anxiety (stable compared with last few days ), Depression, Agitation Mood Description: Calm Affect: Flat Speech Pattern: Clear, Appropriate - Laboratory and Diagnostics Result Diagrams: 08/24/21 08:20 08/24/21 08:20 Labs: 08/15/21 14:25 Abdomen Wound Gram Stain - Final 08/15/21 14:25 Abdomen Wound Culture - Final Enterobacter Aerogenes 08/15/21 14:25 Abdomen Wound Culture - Final Pseudomonas Aeruginosa Laboratory WBC 8.8 X10^3/uL (3.6-10.0) 08/24/21 08:20 RBC 3.49 X10^6/uL (3.5-5.4) L 08/24/21 08:20 Hgb 11.5 g/dL (12.0-16.0) L 08/24/21 08:20 Hct 34.3 % (36.0-47.0) L 08/24/21 08:20 MCV 98.3 fL (80.0-100.0) 08/24/21 08:20 MCH 33.0 pg (27.0-34.0) 08/24/21 08:20 MCHC 33.5 g/dL (33.0-35.0) 08/24/21 08:20 RDW 15.6 % (11.6-16.5) 08/24/21 08:20 Plt Count 318 X10^3/uL (150.0-450.0) 08/24/21 08:20 Plt Count Comment Adequate (ADEQUATE) 08/23/21 05:39 MPV 9.2 fL (7.4-11.0) 08/24/21 08:20 Neut % (Auto) 68.4 % (42.0-75.0) 08/24/21 08:20 Lymph % (Auto) 13.4 % (21.0-51.0) L 08/24/21 08:20 [place] % (Auto) 14.0 % (0.0-13.0) H 08/24/21 08:20 Eos % (Auto) 1.4 % (0.9-2.9) 08/24/21 08:20 Baso % (Auto) 2.8 % (0.2-1.0) H 08/24/21 08:20 Neut # (Auto) 6.1 x10^3/uL (2.2-4.8) H 08/24/21 08:20 Lymph # (Auto) 1.2 X10^3/uL (1.3-2.9) L 08/24/21 08:20 [place] # (Auto) 1.2 x10^3/uL (0.3-0.8) H 08/24/21 08:20 Eos # (Auto) 0.1 x10^3/uL (0.0-0.2) 08/24/21 08:20 Baso # (Auto) 0.3 X10^3/uL (0.0-0.1) H 08/24/21 08:20 Absolute Nucleated RBC 0.1 /100WBC 08/24/21 08:20 Total Counted 100 08/23/21 05:39 Neutrophils % (Manual) 72 % (39-76) 08/23/21 05:39 Band Neutrophils % 1 % (0-10) 08/20/21 05:38 Lymphocytes % (Manual) 18 % (13-43) 08/23/21 05:39 Monocytes % (Manual) 8 % (4-9) 08/23/21 05:39 Metamyelocytes % 2 08/23/21 05:39 Myelocytes % 1 08/20/21 05:38 Promyelocytes % 1 08/16/21 06:00 Plt Morphology Comment Normal (NORMAL) 08/23/21 05:39 RBC Morphology Normal (NORMAL) 08/23/21 05:39 Target Cells Slight A 08/16/21 06:00 Stomatocytes Slight A 08/16/21 06:00 PT 12.3 SECONDS (11.8-14.3) 08/15/21 08:46 INR Target Range - 08/15/21 08:46 INR 0.96 (0.8-1.3) 08/15/21 08:46 Sample Site Rrad 08/16/21 08:00 ABG pH 7.300 (7.35-7.45) L 08/16/21 08:00 ABG pCO2 61.0 mmHg (35.0-45.0) H* 08/16/21 08:00 ABG pO2 63.0 mmHg (80.0-100.0) L 08/16/21 08:00 ABG HCO3 30.0 mmol/L (22-26) H 08/16/21 08:00 ABG O2 Saturation 89.0 % (90-100) L 08/16/21 08:00 ABG Base Excess 2.2 mmol/L (-2.0-2.0) H 08/16/21 08:00 Mac Test Pos 08/16/21 08:00 A-a Gradient 217.0 mmHg 08/16/21 08:00 FiO2 50.0 08/16/21 08:00 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, 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 08/16/21 08:00 Sodium 138 mmol/L (136-145) 08/24/21 08:20 Corrected Sodium TNP 08/24/21 08:20 Potassium 3.6 mmol/L (3.5-5.1) 08/24/21 08:20 Chloride 104 mmol/L (98-107) 08/24/21 08:20 Carbon Dioxide 25.6 mmol/L (21-32) 08/24/21 08:20 BUN 3 mg/dL (7-18) L 08/24/21 08:20 Creatinine 0.59 mg/dL (0.55-1.02) 08/24/21 08:20 Est GFR (MDRD) Af Amer > 60 (>60) 08/24/21 08:20 Est GFR (MDRD) Non-Af > 60 (>60) 08/24/21 08:20 Glucose 107 mg/dL (65-99) H 08/24/21 08:20 Lactic Acid 1.0 mmol/L (0.4-2.0) 08/17/21 09:33 Calcium 7.9 mg/dL (8.5-10.1) L 08/24/21 08:20 Corrected Calcium 9.4 mg/dL (8.5-10.1) 08/24/21 08:20 Magnesium 1.9 mg/dL (1.7-2.9) 08/22/21 05:17 Total Bilirubin 0.30 mg/dL (0.2-1.0) 08/24/21 08:20 AST 27 Units/L (15-37) 08/24/21 08:20 ALT 50 Units/L (12-78) 08/24/21 08:20 Alkaline Phosphatase 105 Units/L (46-116) 08/24/21 08:20 Ammonia < 10 umol/L (11-32) L 08/15/21 11:39 Total Protein 5.3 g/dL (6.4-8.2) L 08/24/21 08:20 Albumin 2.1 g/dL (3.4-5.0) L 08/24/21 08:20 Globulin 3.2 g/dL (2.5-4.5) 08/24/21 08:20 Albumin/Globulin Ratio 0.7 Ratio (1.1-2.1) L 08/24/21 08:20 Urine Opiates Screen Negative (NEG=<300) 08/15/21 18:23 Urine Methadone Screen Negative (NEG=<300) 08/15/21 18:23 Ur Barbiturates Screen Positive (NEG=<200) A 08/15/21 18:23 Ur Phencyclidine Scrn Negative (NEG=<25) 08/15/21 18:23 Ur Amphetamines Screen Negative (NEG=<1000) 08/15/21 18:23 U Benzodiazepines Scrn Negative (NEG=<200) 08/15/21 18:23 Urine Cocaine Screen Negative (NEG=<300) 08/15/21 18:23 U Marijuana (THC) Screen Positive (NEG=<50) A 08/15/21 18:23 SARS CoV-2 RNA Rapid LAVERN Negative (NEGATIVE) 08/17/21 22:30 Tissue Pathology To follow 08/15/21 14:25 - Plan (1) Pneumonia Status: Acute Qualifiers: Pneumonia type: due to unspecified organism Laterality: bilateral Lung location: lower lobe of lung Qualified Code(s): J18.9 - Pneumonia, unspecified organism (2) Appendicitis with abscess Status: Acute (3) SBO (small bowel obstruction) Status: Acute (4) Hypokalemia Status: Acute (5) Chronic pain Status: Chronic Qualifiers: Chronic pain type: other chronic pain (6) Schizophrenia Status: Chronic Qualifiers: Schizophrenia type: unspecified (7) Anxiety Status: Chronic
[2021-08-24] MEDS: PULMICORT NEB TX 0.5 MG NEB SCH ×2 (17:47→21:04)
[2021-08-24] MEDS: MYSOLINE TAB 250 MG PO SCH (20:58)
[2021-08-25] MEDS: NORCO 5/325 MG TAB PO PRN ×5 (00:06→23:44)
[2021-08-25] MEDS: DUONEB 0.5 MG/3 MG (3 mL) NEB SCH ×5 (00:09→21:15)
[2021-08-25] MEDS: D5 NS + KCL 20 MEQ/L 1,000 ML IV SCH ×4 (05:03→21:49)
[2021-08-25 07:00] LABS: BASOPHILS # (AUTO) 0.1 X10^3/uL (0.0-0.1); BASOPHILS % (AUTO) 0.6 % (0.2-1.0); EOSINOPHILS # (AUTO) 0.1 x10^3/uL (0.0-0.2); EOSINOPHILS % (AUTO) 1.3 % (0.9-2.9); HEMATOCRIT 33.1 % (36.0-47.0); HEMOGLOBIN 11.3 g/dL (12.0-16.0); LYMPHOCYTES # (AUTO) 1.3 X10^3/uL (1.3-2.9); LYMPHOCYTES % (AUTO) 12.1 % (21.0-51.0); MEAN CORPUSCULAR HGB CONC 34.2 g/dL (33.0-35.0); MEAN CORPUSCULAR VOLUME 96.6 fL (80.0-100.0); MEAN PLATELET VOLUME 9.6 fL (7.4-11.0); MONOCYTES # (AUTO) 1.3 x10^3/uL (0.3-0.8); MONOCYTES % (AUTO) 12.3 % (0.0-13.0); NEUTROPHILS # (AUTO) 7.7 x10^3/uL (2.2-4.8); NEUTROPHILS % (AUTO) 73.7 % (42.0-75.0); RED BLOOD COUNT 3.42 X10^6/uL (3.5-5.4); RED CELL DISTRIBUTION WIDTH 15.6 % (11.6-16.5); WHITE BLOOD COUNT 10.5 X10^3/uL (3.6-10.0)
[2021-08-25 07:04] LABS: ALANINE AMINOTRANSFERASE 43 Units/L (12-78); ALBUMIN 2.1 g/dL (3.4-5.0); ALKALINE PHOSPHATASE 117 Units/L (46-116); ASPARTATE AMINO TRANSFERASE 25 Units/L (15-37); BLOOD UREA NITROGEN 2 mg/dL (7-18); CALCIUM 7.8 mg/dL (8.5-10.1); CHLORIDE 103 mmol/L (98-107); COR CA(FOR HYPOALB) 9.3 mg/dL (8.5-10.1); CREATININE 0.47 mg/dL (0.55-1.02); SODIUM 136 mmol/L (136-145); TOTAL PROTEIN 5.2 g/dL (6.4-8.2); eGFR NON BLACK RACES > 60 (>60)
--- NOTE | 2021-08-25 08:51 | PCM.PROG ---
Progress Note - Progress Note for Day of Date of Exam: 08/25/21 - Subjective Subjective: IS A 61 YEAR OLD PATIENT OF AND . SHE IS BEING TREATED FOR BILATERAL LOWER LOBE PNEUMONIA, APPENDICITIS WITH ABSCESS, SBO, CHRONIC PAIN. PMH OF HTN, SCHIZOPHRENIA, AND ANXIETY. SHE HAD EXPLORATORY LAP, APPENDECTOMY, DRAINAGE OF APPENDICEAL ABSCESS, RELEASE OF M ECHANICAL SBO, AND LYSIS OF ABDOMINAL ADHESIONS ON 08/15/21. TODAY, SHE IS ALERT AND ORIENTED, LYING IN BED ON MORNING ROUNDS. SHE DENIES COMPLAINTS THIS MORNING. NURSING STAFF REPORTS THAT SHE HAS BEEN AGITATED AT TIMES. SHE IS TOLERATING FOOD AND LIQUIDS WELL AND HAVING NORMAL BOWEL MOVEMENTS. ON E XAMINATION, HEART IS REGULAR IN RATE AND RHYTHM. BILATERAL LUNGS NOTED WITH DIMINISHED LUNG SOUNDS THROUGHOUT. ABDOMEN ROUND, SOFT, AND NOTED TO HAVE INCISION WITH TIMOTEO. HER VITALS THIS MORNING ARE: 98.0-88-20-95%-151/88. LABS OBTAINED. ABNORMAL LAB VALUES INCLUDE THE FOLLOWING: wbc 10.5, rbc 3.42, hgb 11.3, hct 33.1, potassium 3.3, bun 2, creatinine 0.47, calcium 7.8, alk phos 117, total protein 5.2, albumin 2.1. SHE IS CURRENTLY RECEIVING D5NS WITH 20MEQ KCL AT 50 ML/HR, ZOSYN 3.375G IV TID, DUONEBS Q4H, PULMICORT NEBS BID, LOVENOX 40MG SC DAILY, NORCO 5/325MG PO Q6H PRN, ZOFRAN 2MG IV Q4H PRN, PROTONIX 40MG IV DAILY, THE POTASSIUM AND MAGNESIUM PROTOCOLS, NICOTINE PATCH, AND SEVERAL BE HAVIORAL MEDS. WE WILL CONTINUE WITH CURRENT PLAN OF CARE TODAY. SHE IS AWAITING PLACEMENT AT [facility]. WE WILL CONTINUE PT/OT AND SURGEON WILL CONTINUE TO FOLLOW. OTHERWISE, WE PLAN TO FOLLOW UP WITH AM LABS AND CONTINUE TO MONITOR. TIME SPENT ON CLINICAL ASSESSMENT, REVIEWING LABS AND IMAGING, DECISION MAKING, AND DOCUMENTATION GREATER THAN 45 MINUTES. - Past Medical Family Social History Past Med/Fam/Surg Hx: No changes since H&P Allergies: Allergies ciprofloxacin [From Cipro] Allergy (Verified 08/15/21 12:57) aspirin Adverse Reaction (Verified 08/15/21 01:19) NSAIDS (Non-Steroidal Anti-Inflamma Adverse Reaction (Verified 08/15/21 01:19) Sulfa (Sulfonamide Antibiotics) [SULFA] Adverse Reaction (Verified 08/15/21 01:19) - Review of Systems ROS: No change since H&P - Vital Signs and I&O's Vital Signs: Temperature 98.0 F Pulse Rate [Right] 97 Pulse Rate 96 Respiratory Rate 22 Blood Pressure [Left Arm] 171/84 Blood Pressure [Right Arm] 128/63 Blood Pressure 101/56 O2 Sat by Pulse Oximetry 93 Intake and Output: Intake & Output 08/22/21 08/23/21 08/24/21 08/25/21 11:59 11:59 11:59 11:59 Intake Total 3275 / 3275 2333 / 2333 3293 / 3293 2584 / 2584 Output Total 500 / 500 Balance 2775 / 2775 2333 / 2333 3293 / 3293 2584 / 2584 - Physical Exam Oriented: Person, Place Eyes: Normal Ear: Normal Nose: Normal Throat: Dry Respiratory: Generalized, Diminished Cardiovascular: Normal : Normal Auscultation: Bowel Sounds: Normal Palpation: Normal Tenderness: Normal, Other (incision noted with timoteo, soft, BS+) Skin: Decreased Turgur Psychiatric: Normal, Anxiety (stable compared with last few days ), Depression, Agitation Mood Description: Calm Affect: Flat Speech Pattern: Clear, Appropriate - Laboratory and Diagnostics Result Diagrams: 08/25/21 06:23 08/25/21 06:23 Labs: 08/15/21 14:25 Abdomen Wound Gram Stain - Final 08/15/21 14:25 Abdomen Wound Culture - Final Enterobacter Aerogenes 08/15/21 14:25 Abdomen Wound Culture - Final Pseudomonas Aeruginosa Laboratory WBC 10.5 X10^3/uL (3.6-10.0) H 08/25/21 06:23 RBC 3.42 X10^6/uL (3.5-5.4) L 08/25/21 06:23 Hgb 11.3 g/dL (12.0-16.0) L 08/25/21 06:23 Hct 33.1 % (36.0-47.0) L 08/25/21 06:23 MCV 96.6 fL (80.0-100.0) 08/25/21 06:23 MCH 33.0 pg (27.0-34.0) 08/25/21 06:23 MCHC 34.2 g/dL (33.0-35.0) 08/25/21 06:23 RDW 15.6 % (11.6-16.5) 08/25/21 06:23 Plt Count 338 X10^3/uL (150.0-450.0) 08/25/21 06:23 Plt Count Comment Adequate (ADEQUATE) 08/23/21 05:39 MPV 9.6 fL (7.4-11.0) 08/25/21 06:23 Neut % (Auto) 73.7 % (42.0-75.0) 08/25/21 06:23 Lymph % (Auto) 12.1 % (21.0-51.0) L 08/25/21 06:23 Mathews % (Auto) 12.3 % (0.0-13.0) 08/25/21 06:23 Eos % (Auto) 1.3 % (0.9-2.9) 08/25/21 06:23 Baso % (Auto) 0.6 % (0.2-1.0) 08/25/21 06:23 Neut # (Auto) 7.7 x10^3/uL (2.2-4.8) H 08/25/21 06:23 Lymph # (Auto) 1.3 X10^3/uL (1.3-2.9) 08/25/21 06:23 Mathews # (Auto) 1.3 x10^3/uL (0.3-0.8) H 08/25/21 06:23 Eos # (Auto) 0.1 x10^3/uL (0.0-0.2) 08/25/21 06:23 Baso # (Auto) 0.1 X10^3/uL (0.0-0.1) 08/25/21 06:23 Absolute Nucleated RBC 0.1 /100WBC 08/25/21 06:23 Total Counted 100 08/23/21 05:39 Neutrophils % (Manual) 72 % (39-76) 08/23/21 05:39 Band Neutrophils % 1 % (0-10) 08/20/21 05:38 Lymphocytes % (Manual) 18 % (13-43) 08/23/21 05:39 Monocytes % (Manual) 8 % (4-9) 08/23/21 05:39 Metamyelocytes % 2 08/23/21 05:39 Myelocytes % 1 08/20/21 05:38 Promyelocytes % 1 08/16/21 06:00 Plt Morphology Comment Normal (NORMAL) 08/23/21 05:39 RBC Morphology Normal (NORMAL) 08/23/21 05:39 Target Cells Slight A 08/16/21 06:00 Stomatocytes Slight A 08/16/21 06:00 PT 12.3 SECONDS (11.8-14.3) 08/15/21 08:46 INR Target Range - 08/15/21 08:46 INR 0.96 (0.8-1.3) 08/15/21 08:46 Sample Site Rrad 08/16/21 08:00 ABG pH 7.300 (7.35-7.45) L 08/16/21 08:00 ABG pCO2 61.0 mmHg (35.0-45.0) H* 08/16/21 08:00 ABG pO2 63.0 mmHg (80.0-100.0) L 08/16/21 08:00 ABG HCO3 30.0 mmol/L (22-26) H 08/16/21 08:00 ABG O2 Saturation 89.0 % (90-100) L 08/16/21 08:00 ABG Base Excess 2.2 mmol/L (-2.0-2.0) H 08/16/21 08:00 Mac Test Pos 08/16/21 08:00 A-a Gradient 217.0 mmHg 08/16/21 08:00 FiO2 50.0 08/16/21 08:00 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, 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 08/16/21 08:00 Sodium 136 mmol/L (136-145) 08/25/21 06:23 Corrected Sodium TNP 08/25/21 06:23 Potassium 3.3 mmol/L (3.5-5.1) L 08/25/21 06:23 Chloride 103 mmol/L (98-107) 08/25/21 06:23 Carbon Dioxide 25.0 mmol/L (21-32) 08/25/21 06:23 BUN 2 mg/dL (7-18) L 08/25/21 06:23 Creatinine 0.47 mg/dL (0.55-1.02) L 08/25/21 06:23 Est GFR (MDRD) Af Amer > 60 (>60) 08/25/21 06:23 Est GFR (MDRD) Non-Af > 60 (>60) 08/25/21 06:23 Glucose 96 mg/dL (65-99) 08/25/21 06:23 Lactic Acid 1.0 mmol/L (0.4-2.0) 08/17/21 09:33 Calcium 7.8 mg/dL (8.5-10.1) L 08/25/21 06:23 Corrected Calcium 9.3 mg/dL (8.5-10.1) 08/25/21 06:23 Magnesium 1.9 mg/dL (1.7-2.9) 08/22/21 05:17 Total Bilirubin 0.30 mg/dL (0.2-1.0) 08/25/21 06:23 AST 25 Units/L (15-37) 08/25/21 06:23 ALT 43 Units/L (12-78) 08/25/21 06:23 Alkaline Phosphatase 117 Units/L (46-116) H 08/25/21 06:23 Ammonia < 10 umol/L (11-32) L 08/15/21 11:39 Total Protein 5.2 g/dL (6.4-8.2) L 08/25/21 06:23 Albumin 2.1 g/dL (3.4-5.0) L 08/25/21 06:23 Globulin 3.1 g/dL (2.5-4.5) 08/25/21 06:23 Albumin/Globulin Ratio 0.7 Ratio (1.1-2.1) L 08/25/21 06:23 Urine Opiates Screen Negative (NEG=<300) 08/15/21 18:23 Urine Methadone Screen Negative (NEG=<300) 08/15/21 18:23 Ur Barbiturates Screen Positive (NEG=<200) A 08/15/21 18:23 Ur Phencyclidine Scrn Negative (NEG=<25) 08/15/21 18:23 Ur Amphetamines Screen Negative (NEG=<1000) 08/15/21 18:23 U Benzodiazepines Scrn Negative (NEG=<200) 08/15/21 18:23 Urine Cocaine Screen Negative (NEG=<300) 08/15/21 18:23 U Marijuana (THC) Screen Positive (NEG=<50) A 08/15/21 18:23 SARS CoV-2 RNA Rapid LAVERN Negative (NEGATIVE) 08/17/21 22:30 Tissue Pathology To follow 08/15/21 14:25 - Plan (1) Pneumonia Status: Acute Qualifiers: Pneumonia type: due to unspecified organism Laterality: bilateral Lung location: lower lobe of lung Qualified Code(s): J18.9 - Pneumonia, unspecified organism (2) Appendicitis with abscess Status: Acute (3) SBO (small bowel obstruction) Status: Acute (4) Hypokalemia Status: Acute (5) Chronic pain Status: Chronic Qualifiers: Chronic pain type: other chronic pain (6) Schizophrenia Status: Chronic Qualifiers: Schizophrenia type: unspecified (7) Anxiety Status: Chronic
[2021-08-25] MEDS ORDERED: LEXAPRO ONE ×2 (08:54→19:36)
[2021-08-25] MEDS: PULMICORT NEB TX 0.5 MG NEB SCH ×2 (09:31→21:15)
[2021-08-25] MEDS: LEXAPRO PO SCH ×2 (09:48→20:10)
[2021-08-25] MEDS: LOVENOX INJ 40 MG SYR SC SCH (09:49)
[2021-08-25] MEDS: KLONOPIN TAB 0.5 MG PO SCH ×2 (09:49→20:10)
[2021-08-25] MEDS: GEODON PO SCH ×2 (09:49→20:10)
[2021-08-25] MEDS: NICOTINE PATCH TD SCH (09:50)
[2021-08-25] MEDS: COGENTIN TAB 1 MG PO SCH ×2 (09:50→20:10)
[2021-08-25] MEDS: PROTONIX INJ 40 MG VIAL IVP SCH (09:50)
--- NOTE | 2021-08-25 10:56 | DR.PROGNOT ---
Hospital Progress Notes - Progress Note for Day of: Progress Note Date: 08/25/21 - Chief Complaint Chief Complaint: doing fairly well . alert and cooperative . tolerating diet well and having normal bowel movements . normal CBC , BUN/CREAT. afebrile - Past Medical Family Social History Past Med/Fam/Surg Hx: No changes since H&P Allergies: Allergies ciprofloxacin [From Cipro] Allergy (Verified 08/15/21 12:57) aspirin Adverse Reaction (Verified 08/15/21 01:19) NSAIDS (Non-Steroidal Anti-Inflamma Adverse Reaction (Verified 08/15/21 01:19) Sulfa (Sulfonamide Antibiotics) [SULFA] Adverse Reaction (Verified 08/15/21 01:19) - Review Of Systems ROS: No change since H&P - Vital Signs Vital Signs: Temperature 98.0 F Pulse Rate [Right] 97 Pulse Rate 96 Respiratory Rate 22 Blood Pressure [Left Arm] 171/84 Blood Pressure [Right Arm] 128/63 Blood Pressure 101/56 O2 Sat by Pulse Oximetry 93 - Physical Exam Oriented: Person, Place Eyes: Normal Ear: Normal Nose: Normal Throat: Dry Respiratory: Generalized, Diminished Cardiovascular: Normal : Normal GI:Auscultation: Normal GI:Palpation: Normal GI: Tenderness: Normal, Other (incision noted with timoteo, soft, BS+) Skin: Decreased Turgur Psychiatric: Normal, Anxiety (stable compared with last few days ), Depression, Agitation Mood Description: Calm Affect: Flat Speech Pattern: Clear, Appropriate - Laboratory and Diagnostics Result Diagrams: 08/25/21 06:23 08/25/21 06:23 Labs: 08/15/21 14:25 Abdomen Wound Gram Stain - Final 08/15/21 14:25 Abdomen Wound Culture - Final Enterobacter Aerogenes 08/15/21 14:25 Abdomen Wound Culture - Final Pseudomonas Aeruginosa Laboratory WBC 10.5 X10^3/uL (3.6-10.0) H 08/25/21 06:23 RBC 3.42 X10^6/uL (3.5-5.4) L 08/25/21 06:23 Hgb 11.3 g/dL (12.0-16.0) L 08/25/21 06:23 Hct 33.1 % (36.0-47.0) L 08/25/21 06:23 MCV 96.6 fL (80.0-100.0) 08/25/21 06:23 MCH 33.0 pg (27.0-34.0) 08/25/21 06:23 MCHC 34.2 g/dL (33.0-35.0) 08/25/21 06:23 RDW 15.6 % (11.6-16.5) 08/25/21 06:23 Plt Count 338 X10^3/uL (150.0-450.0) 08/25/21 06:23 Plt Count Comment Adequate (ADEQUATE) 08/23/21 05:39 MPV 9.6 fL (7.4-11.0) 08/25/21 06:23 Neut % (Auto) 73.7 % (42.0-75.0) 08/25/21 06:23 Lymph % (Auto) 12.1 % (21.0-51.0) L 08/25/21 06:23 Licking % (Auto) 12.3 % (0.0-13.0) 08/25/21 06:23 Eos % (Auto) 1.3 % (0.9-2.9) 08/25/21 06:23 Baso % (Auto) 0.6 % (0.2-1.0) 08/25/21 06:23 Neut # (Auto) 7.7 x10^3/uL (2.2-4.8) H 08/25/21 06:23 Lymph # (Auto) 1.3 X10^3/uL (1.3-2.9) 08/25/21 06:23 [place]icking # (Auto) 1.3 x10^3/uL (0.3-0.8) H 08/25/21 06:23 Eos # (Auto) 0.1 x10^3/uL (0.0-0.2) 08/25/21 06:23 Baso # (Auto) 0.1 X10^3/uL (0.0-0.1) 08/25/21 06:23 Absolute Nucleated RBC 0.1 /100WBC 08/25/21 06:23 Total Counted 100 08/23/21 05:39 Neutrophils % (Manual) 72 % (39-76) 08/23/21 05:39 Band Neutrophils % 1 % (0-10) 08/20/21 05:38 Lymphocytes % (Manual) 18 % (13-43) 08/23/21 05:39 Monocytes % (Manual) 8 % (4-9) 08/23/21 05:39 Metamyelocytes % 2 08/23/21 05:39 Myelocytes % 1 08/20/21 05:38 Promyelocytes % 1 08/16/21 06:00 Plt Morphology Comment Normal (NORMAL) 08/23/21 05:39 RBC Morphology Normal (NORMAL) 08/23/21 05:39 Target Cells Slight A 08/16/21 06:00 Stomatocytes Slight A 08/16/21 06:00 PT 12.3 SECONDS (11.8-14.3) 08/15/21 08:46 INR Target Range - 08/15/21 08:46 INR 0.96 (0.8-1.3) 08/15/21 08:46 Sample Site Rrad 08/16/21 08:00 ABG pH 7.300 (7.35-7.45) L 08/16/21 08:00 ABG pCO2 61.0 mmHg (35.0-45.0) H* 08/16/21 08:00 ABG pO2 63.0 mmHg (80.0-100.0) L 08/16/21 08:00 ABG HCO3 30.0 mmol/L (22-26) H 08/16/21 08:00 ABG O2 Saturation 89.0 % (90-100) L 08/16/21 08:00 ABG Base Excess 2.2 mmol/L (-2.0-2.0) H 08/16/21 08:00 Mac Test Pos 08/16/21 08:00 A-a Gradient 217.0 mmHg 08/16/21 08:00 FiO2 50.0 08/16/21 08:00 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, 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 08/16/21 08:00 Sodium 136 mmol/L (136-145) 08/25/21 06:23 Corrected Sodium TNP 08/25/21 06:23 Potassium 3.3 mmol/L (3.5-5.1) L 08/25/21 06:23 Chloride 103 mmol/L (98-107) 08/25/21 06:23 Carbon Dioxide 25.0 mmol/L (21-32) 08/25/21 06:23 BUN 2 mg/dL (7-18) L 08/25/21 06:23 Creatinine 0.47 mg/dL (0.55-1.02) L 08/25/21 06:23 Est GFR (MDRD) Af Amer > 60 (>60) 08/25/21 06:23 Est GFR (MDRD) Non-Af > 60 (>60) 08/25/21 06:23 Glucose 96 mg/dL (65-99) 08/25/21 06:23 Lactic Acid 1.0 mmol/L (0.4-2.0) 08/17/21 09:33 Calcium 7.8 mg/dL (8.5-10.1) L 08/25/21 06:23 Corrected Calcium 9.3 mg/dL (8.5-10.1) 08/25/21 06:23 Magnesium 1.9 mg/dL (1.7-2.9) 08/22/21 05:17 Total Bilirubin 0.30 mg/dL (0.2-1.0) 08/25/21 06:23 AST 25 Units/L (15-37) 08/25/21 06:23 ALT 43 Units/L (12-78) 08/25/21 06:23 Alkaline Phosphatase 117 Units/L (46-116) H 08/25/21 06:23 Ammonia < 10 umol/L (11-32) L 08/15/21 11:39 Total Protein 5.2 g/dL (6.4-8.2) L 08/25/21 06:23 Albumin 2.1 g/dL (3.4-5.0) L 08/25/21 06:23 Globulin 3.1 g/dL (2.5-4.5) 08/25/21 06:23 Albumin/Globulin Ratio 0.7 Ratio (1.1-2.1) L 08/25/21 06:23 Urine Opiates Screen Negative (NEG=<300) 08/15/21 18:23 Urine Methadone Screen Negative (NEG=<300) 08/15/21 18:23 Ur Barbiturates Screen Positive (NEG=<200) A 08/15/21 18:23 Ur Phencyclidine Scrn Negative (NEG=<25) 08/15/21 18:23 Ur Amphetamines Screen Negative (NEG=<1000) 08/15/21 18:23 U Benzodiazepines Scrn Negative (NEG=<200) 08/15/21 18:23 Urine Cocaine Screen Negative (NEG=<300) 08/15/21 18:23 U Marijuana (THC) Screen Positive (NEG=<50) A 08/15/21 18:23 SARS CoV-2 RNA Rapid LAVERN Negative (NEGATIVE) 08/17/21 22:30 Tissue Pathology To follow 08/15/21 14:25 - Assessment and Plan 1: s/p laparotomy , appendectomy for acute ruptured appedicitis with RLQ abscess . SBO, abdominal adhesions . depression , anxiety . Schizophrenia . PO agitation and confusion had resolved . same post operative care ,control of agitation ,. supportive bj and placement when bed is available .. .. - Problem Patient Problems: Patient Problems Pneumonia (Acute) J18.9 Chronic pain (Chronic) G89.29 Anxiety (Chronic) F41.9 Schizophrenia (Chronic) F20.9 Appendicitis with abscess (Acute) K35.33 Hypokalemia (Acute) E87.6 SBO (small bowel obstruction) (Acute) K56.609
[2021-08-25] MEDS: K-DUR TAB 20 MEQ PO PRN (20:09)
[2021-08-25] MEDS: MYSOLINE TAB 250 MG PO SCH (20:10)
[2021-08-26] MEDS: DUONEB 0.5 MG/3 MG (3 mL) NEB SCH ×6 (00:43→21:25)
[2021-08-26] MEDS: NORCO 5/325 MG TAB PO PRN ×4 (05:36→23:30)
[2021-08-26 06:11] LABS: BASOPHILS # (AUTO) 0.1 X10^3/uL (0.0-0.1); BASOPHILS % (AUTO) 1.3 % (0.2-1.0); EOSINOPHILS # (AUTO) 0.1 x10^3/uL (0.0-0.2); EOSINOPHILS % (AUTO) 1.3 % (0.9-2.9); HEMATOCRIT 34.3 % (36.0-47.0); HEMOGLOBIN 11.8 g/dL (12.0-16.0); LYMPHOCYTES # (AUTO) 1.6 X10^3/uL (1.3-2.9); LYMPHOCYTES % (AUTO) 15.6 % (21.0-51.0); MEAN CORPUSCULAR HEMOGLOBIN 33.2 pg (27.0-34.0); MEAN CORPUSCULAR HGB CONC 34.3 g/dL (33.0-35.0); MEAN CORPUSCULAR VOLUME 96.8 fL (80.0-100.0); MEAN PLATELET VOLUME 9.9 fL (7.4-11.0); MONOCYTES # (AUTO) 1.4 x10^3/uL (0.3-0.8); MONOCYTES % (AUTO) 13.2 % (0.0-13.0); NEUTROPHILS # (AUTO) 7.2 x10^3/uL (2.2-4.8); NEUTROPHILS % (AUTO) 68.6 % (42.0-75.0); RED BLOOD COUNT 3.54 X10^6/uL (3.5-5.4); RED CELL DISTRIBUTION WIDTH 15.4 % (11.6-16.5); WHITE BLOOD COUNT 10.5 X10^3/uL (3.6-10.0)
[2021-08-26 06:23] LABS: ALANINE AMINOTRANSFERASE 36 Units/L (12-78); ALBUMIN 2.2 g/dL (3.4-5.0); ALKALINE PHOSPHATASE 144 Units/L (46-116); ASPARTATE AMINO TRANSFERASE 25 Units/L (15-37); BLOOD UREA NITROGEN 2 mg/dL (7-18); CALCIUM 7.9 mg/dL (8.5-10.1); CARBON DIOXIDE 25.4 mmol/L (21-32); CHLORIDE 105 mmol/L (98-107); COR CA(FOR HYPOALB) 9.3 mg/dL (8.5-10.1); CREATININE 0.42 mg/dL (0.55-1.02); MAGNESIUM 1.9 mg/dL (1.7-2.9); SODIUM 136 mmol/L (136-145); TOTAL PROTEIN 5.4 g/dL (6.4-8.2); eGFR NON BLACK RACES > 60 (>60)
[2021-08-26] MEDS: D5 NS + KCL 20 MEQ/L 1,000 ML IV SCH ×3 (07:39→20:48)
[2021-08-26] MEDS ORDERED: LEXAPRO ONE ×2 (09:04→20:42)
[2021-08-26] MEDS: LEXAPRO PO SCH ×2 (09:08→20:54)
[2021-08-26] MEDS: COGENTIN TAB 1 MG PO SCH ×2 (09:08→20:53)
[2021-08-26] MEDS: GEODON PO SCH ×2 (09:08→20:53)
[2021-08-26] MEDS: KLONOPIN TAB 0.5 MG PO SCH ×2 (09:08→20:54)
[2021-08-26] MEDS: LOVENOX INJ 40 MG SYR SC SCH (09:09)
[2021-08-26] MEDS: PROTONIX INJ 40 MG VIAL IVP SCH (09:09)
[2021-08-26] MEDS: NICOTINE PATCH TD SCH (09:09)
[2021-08-26] MEDS: MAGNESIUM SULFATE 1 GRAM/100 mL PREMIX 1 G/100 ML BAG IV PRN ×2 (09:23→11:38)
[2021-08-26] MEDS: PULMICORT NEB TX 0.5 MG NEB SCH ×2 (09:27→21:25)
--- NOTE | 2021-08-26 13:20 | PCM.PROG ---
Progress Note Progress Note for Day of Date of Exam: 08/26/21 Subjective Subjective: Patient seen at bedside, no events overnight. She has been doing well. She reports eating better. Denies N/V/D. She has been working with PT as tolerated. She is awaiting placement to behavioral rehab. Labs reviewed Plan: continue current management, doing well. Continue PT/OT as tolerated. Continue home medications. Patient's oral intake has improved. CM working on placement, referrals pending. Patient stable to be discharged to rehab. Past Medical Family Social History Past Med/Fam/Surg Hx: No changes since H&P Allergies: Allergies ciprofloxacin [From Cipro] Allergy (Verified 08/15/21 12:57) aspirin Adverse Reaction (Verified 08/15/21 01:19) NSAIDS (Non-Steroidal Anti-Inflamma Adverse Reaction (Verified 08/15/21 01:19) Sulfa (Sulfonamide Antibiotics) [SULFA] Adverse Reaction (Verified 08/15/21 01:19) Review of Systems ROS: No change since H&P Vital Signs and I&O's Vital Signs: Temperature 97.8 F Pulse Rate [Right] 98 Pulse Rate 96 Respiratory Rate 34 Blood Pressure [Left Arm] 141/90 Blood Pressure [Right Arm] 128/63 Blood Pressure 101/56 O2 Sat by Pulse Oximetry 96 Intake and Output: Intake & Output 08/23/21 08/24/21 08/25/21 08/26/21 23:59 23:59 23:59 23:59 Intake Total 3938 / 3938 1483 / 1483 2574 / 2574 1305 / 1305 Balance 3938 / 3938 1483 / 1483 2574 / 2574 1305 / 1305 Physical Exam Oriented: Person and Place Eyes: Normal Ear: Normal Nose: Normal Throat: Normal Respiratory: Normal Cardiovascular: Normal Auscultation: Bowel Sounds: Normal Tenderness: Normal and Other (incision noted with timoteo, soft, BS+ ) Skin: Decreased Turgur Psychiatric: Normal Mood Description: Calm Affect: Normal Speech Pattern: Clear and Appropriate Laboratory and Diagnostics Result Diagrams: 08/26/21 05:45 08/26/21 05:45 Labs: 08/15/21 14:25 Abdomen Wound Gram Stain - Final 08/15/21 14:25 Abdomen Wound Culture - Final Enterobacter Aerogenes 08/15/21 14:25 Abdomen Wound Culture - Final Pseudomonas Aeruginosa Laboratory WBC 10.5 X10^3/uL (3.6-10.0) H 08/26/21 05:45 RBC 3.54 X10^6/uL (3.5-5.4) 08/26/21 05:45 Hgb 11.8 g/dL (12.0-16.0) L 08/26/21 05:45 Hct 34.3 % (36.0-47.0) L 08/26/21 05:45 MCV 96.8 fL (80.0-100.0) 08/26/21 05:45 MCH 33.2 pg (27.0-34.0) 08/26/21 05:45 MCHC 34.3 g/dL (33.0-35.0) 08/26/21 05:45 RDW 15.4 % (11.6-16.5) 08/26/21 05:45 Plt Count 342 X10^3/uL (150.0-450.0) 08/26/21 05:45 Plt Count Comment Adequate (ADEQUATE) 08/23/21 05:39 MPV 9.9 fL (7.4-11.0) 08/26/21 05:45 Neut % (Auto) 68.6 % (42.0-75.0) 08/26/21 05:45 Lymph % (Auto) 15.6 % (21.0-51.0) L 08/26/21 05:45 Tripp % (Auto) 13.2 % (0.0-13.0) H 08/26/21 05:45 Eos % (Auto) 1.3 % (0.9-2.9) 08/26/21 05:45 Baso % (Auto) 1.3 % (0.2-1.0) H 08/26/21 05:45 Neut # (Auto) 7.2 x10^3/uL (2.2-4.8) H 08/26/21 05:45 Lymph # (Auto) 1.6 X10^3/uL (1.3-2.9) 08/26/21 05:45 Tripp # (Auto) 1.4 x10^3/uL (0.3-0.8) H 08/26/21 05:45 Eos # (Auto) 0.1 x10^3/uL (0.0-0.2) 08/26/21 05:45 Baso # (Auto) 0.1 X10^3/uL (0.0-0.1) 08/26/21 05:45 Absolute Nucleated RBC 0.1 /100WBC 08/26/21 05:45 Total Counted 100 08/23/21 05:39 Neutrophils % (Manual) 72 % (39-76) 08/23/21 05:39 Band Neutrophils % 1 % (0-10) 08/20/21 05:38 Lymphocytes % (Manual) 18 % (13-43) 08/23/21 05:39 Monocytes % (Manual) 8 % (4-9) 08/23/21 05:39 Metamyelocytes % 2 08/23/21 05:39 Myelocytes % 1 08/20/21 05:38 Promyelocytes % 1 08/16/21 06:00 Plt Morphology Comment Normal (NORMAL) 08/23/21 05:39 RBC Morphology Normal (NORMAL) 08/23/21 05:39 Target Cells Slight A 08/16/21 06:00 Stomatocytes Slight A 08/16/21 06:00 PT 12.3 SECONDS (11.8-14.3) 08/15/21 08:46 INR Target Range - 08/15/21 08:46 INR 0.96 (0.8-1.3) 08/15/21 08:46 Sample Site Rrad 08/16/21 08:00 ABG pH 7.300 (7.35-7.45) L 08/16/21 08:00 ABG pCO2 61.0 mmHg (35.0-45.0) H* 08/16/21 08:00 ABG pO2 63.0 mmHg (80.0-100.0) L 08/16/21 08:00 ABG HCO3 30.0 mmol/L (22-26) H 08/16/21 08:00 ABG O2 Saturation 89.0 % (90-100) L 08/16/21 08:00 ABG Base Excess 2.2 mmol/L (-2.0-2.0) H 08/16/21 08:00 Mac Test Pos 08/16/21 08:00 A-a Gradient 217.0 mmHg 08/16/21 08:00 FiO2 50.0 08/16/21 08:00 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, 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 08/16/21 08:00 Sodium 136 mmol/L (136-145) 08/26/21 05:45 Corrected Sodium TNP 08/26/21 05:45 Potassium 4.1 mmol/L (3.5-5.1) 08/26/21 05:45 Chloride 105 mmol/L (98-107) 08/26/21 05:45 Carbon Dioxide 25.4 mmol/L (21-32) 08/26/21 05:45 BUN 2 mg/dL (7-18) L 08/26/21 05:45 Creatinine 0.42 mg/dL (0.55-1.02) L 08/26/21 05:45 Est GFR (MDRD) Af Amer > 60 (>60) 08/26/21 05:45 Est GFR (MDRD) Non-Af > 60 (>60) 08/26/21 05:45 Glucose 98 mg/dL (65-99) 08/26/21 05:45 Lactic Acid 1.0 mmol/L (0.4-2.0) 08/17/21 09:33 Calcium 7.9 mg/dL (8.5-10.1) L 08/26/21 05:45 Corrected Calcium 9.3 mg/dL (8.5-10.1) 08/26/21 05:45 Magnesium 1.9 mg/dL (1.7-2.9) 08/26/21 05:45 Total Bilirubin 0.20 mg/dL (0.2-1.0) 08/26/21 05:45 AST 25 Units/L (15-37) 08/26/21 05:45 ALT 36 Units/L (12-78) 08/26/21 05:45 Alkaline Phosphatase 144 Units/L (46-116) H 08/26/21 05:45 Ammonia < 10 umol/L (11-32) L 08/15/21 11:39 Total Protein 5.4 g/dL (6.4-8.2) L 08/26/21 05:45 Albumin 2.2 g/dL (3.4-5.0) L 08/26/21 05:45 Globulin 3.2 g/dL (2.5-4.5) 08/26/21 05:45 Albumin/Globulin Ratio 0.7 Ratio (1.1-2.1) L 08/26/21 05:45 Urine Opiates Screen Negative (NEG=<300) 08/15/21 18: Urine Methadone Screen Negative (NEG=<300) 08/15/21 18:23 Ur Barbiturates Screen Positive (NEG=<200) A 08/15/21 18:23 Ur Phencyclidine Scrn Negative (NEG=<25) 08/15/21 18: Ur Amphetamines Screen Negative (NEG=<1000) 08/15/21 18:23 U Benzodiazepines Scrn Negative (NEG=<200) 08/15/21 18:23 Urine Cocaine Screen Negative (NEG=<300) 08/15/21 18:23 U Marijuana (THC) Screen Positive (NEG=<50) A 08/15/21 18:23 SARS CoV-2 RNA Rapid LAVERN Negative (NEGATIVE) 08/17/21 22:30 Tissue Pathology To follow 08/15/21 14:25 Plan (1) Pneumonia: Status: Acute Qualifiers: Laterality: bilateral Lung location: lower lobe of lung Pneumonia type: due to unspecified organism Qualified Code(s): J18.9 - Pneumonia, unspecified organism (2) Appendicitis with abscess: Status: Acute (3) SBO (small bowel obstruction): Status: Acute (4) Hypokalemia: Status: Acute (5) Chronic pain: Status: Chronic Qualifiers: Chronic pain type: other chronic pain Qualified Code(s): G89.29 - Other chronic pain (6) Schizophrenia: Status: Chronic Qualifiers: Schizophrenia type: unspecified Qualified Code(s): F20.9 - Schizophrenia, unspecified (7) Anxiety: Status: Chronic
--- NOTE | 2021-08-26 15:37 | DR.PROGNOT ---
Hospital Progress Notes - Progress Note for Day of: Progress Note Date: 08/26/21 - Chief Complaint Chief Complaint: doing fairly well . alert and cooperative . tolerating diet well and having normal bowel movements . normal CBC , BUN/CREAT. afebrile - Past Medical Family Social History Past Med/Fam/Surg Hx: No changes since H&P Allergies: Allergies ciprofloxacin [From Cipro] Allergy (Verified 08/15/21 12:57) aspirin Adverse Reaction (Verified 08/15/21 01:19) NSAIDS (Non-Steroidal Anti-Inflamma Adverse Reaction (Verified 08/15/21 01:19) Sulfa (Sulfonamide Antibiotics) [SULFA] Adverse Reaction (Verified 08/15/21 01:19) - Review Of Systems ROS: No change since H&P - Vital Signs Vital Signs: Temperature 97.8 F Pulse Rate [Right] 98 Pulse Rate 96 Respiratory Rate 34 Blood Pressure [Left Arm] 141/90 Blood Pressure [Right Arm] 128/63 Blood Pressure 101/56 O2 Sat by Pulse Oximetry 96 - Physical Exam Oriented: Person, Place Eyes: Normal Ear: Normal Nose: Normal Throat: Normal Respiratory: Normal Cardiovascular: Normal : Normal GI:Auscultation: Normal GI:Palpation: Normal GI: Tenderness: Normal (soft, flat abdomen . non tender .BS+), Other (incision noted with timoteo, soft, BS+) Skin: Decreased Turgur Psychiatric: Normal Mood Description: Calm Affect: Normal Speech Pattern: Clear, Appropriate - Laboratory and Diagnostics Result Diagrams: 08/26/21 05:45 08/26/21 05:45 Labs: 08/15/21 14:25 Abdomen Wound Gram Stain - Final 08/15/21 14:25 Abdomen Wound Culture - Final Enterobacter Aerogenes 08/15/21 14:25 Abdomen Wound Culture - Final Pseudomonas Aeruginosa Laboratory WBC 10.5 X10^3/uL (3.6-10.0) H 08/26/21 05:45 RBC 3.54 X10^6/uL (3.5-5.4) 08/26/21 05:45 Hgb 11.8 g/dL (12.0-16.0) L 08/26/21 05:45 Hct 34.3 % (36.0-47.0) L 08/26/21 05:45 MCV 96.8 fL (80.0-100.0) 08/26/21 05:45 MCH 33.2 pg (27.0-34.0) 08/26/21 05:45 MCHC 34.3 g/dL (33.0-35.0) 08/26/21 05:45 RDW 15.4 % (11.6-16.5) 08/26/21 05:45 Plt Count 342 X10^3/uL (150.0-450.0) 08/26/21 05:45 Plt Count Comment Adequate (ADEQUATE) 08/23/21 05:39 MPV 9.9 fL (7.4-11.0) 08/26/21 05:45 Neut % (Auto) 68.6 % (42.0-75.0) 08/26/21 05:45 Lymph % (Auto) 15.6 % (21.0-51.0) L 08/26/21 05:45 [place] % (Auto) 13.2 % (0.0-13.0) H 08/26/21 05:45 Eos % (Auto) 1.3 % (0.9-2.9) 08/26/21 05:45 Baso % (Auto) 1.3 % (0.2-1.0) H 08/26/21 05:45 Neut # (Auto) 7.2 x10^3/uL (2.2-4.8) H 08/26/21 05:45 Lymph # (Auto) 1.6 X10^3/uL (1.3-2.9) 08/26/21 05:45 [place] # (Auto) 1.4 x10^3/uL (0.3-0.8) H 08/26/21 05:45 Eos # (Auto) 0.1 x10^3/uL (0.0-0.2) 08/26/21 05:45 Baso # (Auto) 0.1 X10^3/uL (0.0-0.1) 08/26/21 05:45 Absolute Nucleated RBC 0.1 /100WBC 08/26/21 05:45 Total Counted 100 08/23/21 05:39 Neutrophils % (Manual) 72 % (39-76) 08/23/21 05:39 Band Neutrophils % 1 % (0-10) 08/20/21 05:38 Lymphocytes % (Manual) 18 % (13-43) 08/23/21 05:39 Monocytes % (Manual) 8 % (4-9) 08/23/21 05:39 Metamyelocytes % 2 08/23/21 05:39 Myelocytes % 1 08/20/21 05:38 Promyelocytes % 1 08/16/21 06:00 Plt Morphology Comment Normal (NORMAL) 08/23/21 05:39 RBC Morphology Normal (NORMAL) 08/23/21 05:39 Target Cells Slight A 08/16/21 06:00 Stomatocytes Slight A 08/16/21 06:00 PT 12.3 SECONDS (11.8-14.3) 08/15/21 08:46 INR Target Range - 08/15/21 08:46 INR 0.96 (0.8-1.3) 08/15/21 08:46 Sample Site Rrad 08/16/21 08:00 ABG pH 7.300 (7.35-7.45) L 08/16/21 08:00 ABG pCO2 61.0 mmHg (35.0-45.0) H* 08/16/21 08:00 ABG pO2 63.0 mmHg (80.0-100.0) L 08/16/21 08:00 ABG HCO3 30.0 mmol/L (22-26) H 08/16/21 08:00 ABG O2 Saturation 89.0 % (90-100) L 08/16/21 08:00 ABG Base Excess 2.2 mmol/L (-2.0-2.0) H 08/16/21 08:00 Mac Test Pos 08/16/21 08:00 A-a Gradient 217.0 mmHg 08/16/21 08:00 FiO2 50.0 08/16/21 08:00 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5-10.1) 08/26/21 05:45 Magnesium 1.9 mg/dL (1.7-2.9) 08/26/21 05:45 Total Bilirubin 0.20 mg/dL (0.2-1.0) 08/26/21 05:45 AST 25 Units/L (15-37) 08/26/21 05:45 ALT 36 Units/L (12-78) 08/26/21 05:45 Alkaline Phosphatase 144 Units/L (46-116) H 08/26/21 05:45 Ammonia < 10 umol/L (11-32) L 08/15/21 11:39 Total Protein 5.4 g/dL (6.4-8.2) L 08/26/21 05:45 Albumin 2.2 g/dL (3.4-5.0) L 08/26/21 05:45 Globulin 3.2 g/dL (2.5-4.5) 08/26/21 05:45 Albumin/Globulin Ratio 0.7 Ratio (1.1-2.1) L 08/26/21 05:45 Urine Opiates Screen Negative (NEG=<300) 08/15/21 18:23 Urine Methadone Screen Negative (NEG=<300) 08/15/21 18:23 Ur Barbiturates Screen Positive (NEG=<200) A 08/15/21 18:23 Ur Phencyclidine Scrn Negative (NEG=<25) 08/15/21 18:23 Ur Amphetamines Screen Negative (NEG=<1000) 08/15/21 18:23 U Benzodiazepines Scrn Negative (NEG=<200) 08/15/21 18:23 Urine Cocaine Screen Negative (NEG=<300) 08/15/21 18:23 U Marijuana (THC) Screen Positive (NEG=<50) A 08/15/21 18:23 SARS CoV-2 RNA Rapid LAVERN Negative (NEGATIVE) 08/17/21 22:30 Tissue Pathology To follow 08/15/21 14:25 - Assessment and Plan 1: s/p laparotomy , appendectomy for acute ruptured appedicitis with RLQ abscess . SBO, abdominal adhesions . depression , anxiety . Schizophrenia . PO agitation and confusion had resolved . same post operative care ,. PT ,OT . supportive bj and placement when bed is available .. .. - Problem Patient Problems: Patient Problems Pneumonia (Acute) J18.9 Chronic pain (Chronic) G89.29 Anxiety (Chronic) F41.9 Schizophrenia (Chronic) F20.9 Appendicitis with abscess (Acute) K35.33 Hypokalemia (Acute) E87.6 SBO (small bowel obstruction) (Acute) K56.609
[2021-08-26] MEDS: MYSOLINE TAB 250 MG PO SCH (20:53)
[2021-08-27] MEDS: DUONEB 0.5 MG/3 MG (3 mL) NEB SCH ×6 (01:00→21:07)
[2021-08-27] MEDS: NORCO 5/325 MG TAB PO PRN ×4 (05:12→23:12)
[2021-08-27] MEDS: D5 NS + KCL 20 MEQ/L 1,000 ML IV SCH ×2 (06:59→07:30)
[2021-08-27] MEDS: PULMICORT NEB TX 0.5 MG NEB SCH ×2 (08:42→21:08)
[2021-08-27] MEDS ORDERED: LEXAPRO ONE ×2 (09:40→21:05)
[2021-08-27] MEDS: COGENTIN TAB 1 MG PO SCH ×2 (09:42→21:10)
[2021-08-27] MEDS: PROTONIX TAB 40 MG PO SCH (09:42)
[2021-08-27] MEDS: LOVENOX INJ 40 MG SYR SC SCH (09:43)
[2021-08-27] MEDS: GEODON PO SCH ×2 (09:43→21:10)
[2021-08-27] MEDS: LEXAPRO PO SCH ×2 (09:43→21:11)
[2021-08-27] MEDS: KLONOPIN TAB 0.5 MG PO SCH ×2 (09:44→21:12)
[2021-08-27] MEDS: NICOTINE PATCH TD SCH (09:48)
--- NOTE | 2021-08-27 15:20 | PCM.PROG ---
Progress Note Progress Note for Day of Date of Exam: 08/27/21 Subjective Subjective: Patient seen at bedside, no events overnight. She has been doing well. She states her appetite is improving, able to eat more than half of her meal. She continues to work with PT. Rehab placement pending, referrals sent. Patient states if not able to get inpatient rehab then she can consider doing outpatient therapy. CM will check with patient's daughter. Plan: continue current management, doing well. Completed IV antibiotics. She remains on room air. Continue PT/OT as tolerated. Continue home medications. Patient's oral intake has improved. CM working on placement, referrals pending and will discuss more with patient's daughter. Patient stable to be discharged to rehab. Past Medical Family Social History Past Med/Fam/Surg Hx: No changes since H&P Allergies: Allergies ciprofloxacin [From Cipro] Allergy (Verified 08/15/21 12:57) aspirin Adverse Reaction (Verified 08/15/21 01:19) NSAIDS (Non-Steroidal Anti-Inflamma Adverse Reaction (Verified 08/15/21 01:19) Sulfa (Sulfonamide Antibiotics) [SULFA] Adverse Reaction (Verified 08/15/21 01:19) Review of Systems ROS: No change since H&P Vital Signs and I&O's Vital Signs: Temperature 97.9 F Pulse Rate [Right] 100 Pulse Rate 84 Respiratory Rate 20 Blood Pressure [Left Arm] 163/86 Blood Pressure [Right Arm] 128/63 Blood Pressure 101/56 O2 Sat by Pulse Oximetry 95 Intake and Output: Intake & Output 08/24/21 08/25/21 08/26/21 08/27/21 23:59 23:59 23:59 23:59 Intake Total 1483 / 1483 2574 / 2574 2353 / 2353 728 / 728 Balance 1483 / 1483 2574 / 2574 2353 / 2353 728 / 728 Physical Exam Oriented: Normal Eyes: Normal Nose: Normal Throat: Normal Respiratory: Normal Cardiovascular: Normal : Normal Auscultation: Bowel Sounds: Normal Tenderness: Normal (soft, flat abdomen . non tender .BS+) and Other (incision noted with timoteo, soft, BS+ ) Skin: Decreased Turgur Psychiatric: Normal Mood Description: Calm Affect: Normal Speech Pattern: Clear and Appropriate Laboratory and Diagnostics Result Diagrams: 08/26/21 05:45 08/26/21 05:45 Labs: 08/15/21 14:25 Abdomen Wound Gram Stain - Final 08/15/21 14:25 Abdomen Wound Culture - Final Enterobacter Aerogenes 08/15/21 14:25 Abdomen Wound Culture - Final Pseudomonas Aeruginosa Laboratory WBC 10.5 X10^3/uL (3.6-10.0) H 08/26/21 05:45 RBC 3.54 X10^6/uL (3.5-5.4) 08/26/21 05:45 Hgb 11.8 g/dL (12.0-16.0) L 08/26/21 05:45 Hct 34.3 % (36.0-47.0) L 08/26/21 05:45 MCV 96.8 fL (80.0-100.0) 08/26/21 05:45 MCH 33.2 pg (27.0-34.0) 08/26/21 05:45 MCHC 34.3 g/dL (33.0-35.0) 08/26/21 05:45 RDW 15.4 % (11.6-16.5) 08/26/21 05:45 Plt Count 342 X10^3/uL (150.0-450.0) 08/26/21 05:45 Plt Count Comment Adequate (ADEQUATE) 08/23/21 05:39 MPV 9.9 fL (7.4-11.0) 08/26/21 05:45 Neut % (Auto) 68.6 % (42.0-75.0) 08/26/21 05:45 Lymph % (Auto) 15.6 % (21.0-51.0) L 08/26/21 05:45 [place] % (Auto) 13.2 % (0.0-13.0) H 08/26/21 05:45 Eos % (Auto) 1.3 % (0.9-2.9) 08/26/21 05:45 Baso % (Auto) 1.3 % (0.2-1.0) H 08/26/21 05:45 Neut # (Auto) 7.2 x10^3/uL (2.2-4.8) H 08/26/21 05:45 Lymph # (Auto) 1.6 X10^3/uL (1.3-2.9) 08/26/21 05:45 [place] # (Auto) 1.4 x10^3/uL (0.3-0.8) H 08/26/21 05:45 Eos # (Auto) 0.1 x10^3/uL (0.0-0.2) 08/26/21 05:45 Baso # (Auto) 0.1 X10^3/uL (0.0-0.1) 08/26/21 05:45 Absolute Nucleated RBC 0.1 /100WBC 08/26/21 05:45 Total Counted 100 08/23/21 05:39 Neutrophils % (Manual) 72 % (39-76) 08/23/21 05:39 Band Neutrophils % 1 % (0-10) 08/20/21 05:38 Lymphocytes % (Manual) 18 % (13-43) 08/23/21 05:39 Monocytes % (Manual) 8 % (4-9) 08/23/21 05:39 Metamyelocytes % 2 08/23/21 05:39 Myelocytes % 1 08/20/21 05:38 Promyelocytes % 1 08/16/21 06:00 Plt Morphology Comment Normal (NORMAL) 08/23/21 05:39 RBC Morphology Normal (NORMAL) 08/23/21 05:39 Target Cells Slight A 08/16/21 06:00 Stomatocytes Slight A 08/16/21 06:00 PT 12.3 SECONDS (11.8-14.3) 08/15/21 08:46 INR Target Range - 08/15/21 08:46 INR 0.96 (0.8-1.3) 08/15/21 08:46 Sample Site Rrad 08/16/21 08:00 ABG pH 7.300 (7.35-7.45) L 08/16/21 08:00 ABG pCO2 61.0 mmHg (35.0-45.0) H* 08/16/21 08:00 ABG pO2 63.0 mmHg (80.0-100.0) L 08/16/21 08:00 ABG HCO3 30.0 mmol/L (22-26) H 08/16/21 08:00 ABG O2 Saturation 89.0 % (90-100) L 08/16/21 08:00 ABG Base Excess 2.2 mmol/L (-2.0-2.0) H 08/16/21 08:00 Mac Test Pos 08/16/21 08:00 A-a Gradient 217.0 mmHg 08/16/21 08:00 FiO2 50.0 08/16/21 08:00 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, 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 08/16/21 08:00 Sodium 136 mmol/L (136-145) 08/26/21 05:45 Corrected Sodium TNP 08/26/21 05:45 Potassium 4.1 mmol/L (3.5-5.1) 08/26/21 05:45 Chloride 105 mmol/L (98-107) 08/26/21 05:45 Carbon Dioxide 25.4 mmol/L (21-32) 08/26/21 05:45 BUN 2 mg/dL (7-18) L 08/26/21 05:45 Creatinine 0.42 mg/dL (0.55-1.02) L 08/26/21 05:45 Est GFR (MDRD) Af Amer > 60 (>60) 08/26/21 05:45 Est GFR (MDRD) Non-Af > 60 (>60) 08/26/21 05:45 Glucose 98 mg/dL (65-99) 08/26/21 05:45 Lactic Acid 1.0 mmol/L (0.4-2.0) 08/17/21 09:33 Calcium 7.9 mg/dL (8.5-10.1) L 08/26/21 05:45 Corrected Calcium 9.3 mg/dL (8.5-10.1) 08/26/21 05:45 Magnesium 1.9 mg/dL (1.7-2.9) 08/26/21 05:45 Total Bilirubin 0.20 mg/dL (0.2-1.0) 08/26/21 05:45 AST 25 Units/L (15-37) 08/26/21 05:45 ALT 36 Units/L (12-78) 08/26/21 05:45 Alkaline Phosphatase 144 Units/L (46-116) H 08/26/21 05:45 Ammonia < 10 umol/L (11-32) L 08/15/21 11:39 Total Protein 5.4 g/dL (6.4-8.2) L 08/26/21 05:45 Albumin 2.2 g/dL (3.4-5.0) L 08/26/21 05:45 Globulin 3.2 g/dL (2.5-4.5) 08/26/21 05:45 Albumin/Globulin Ratio 0.7 Ratio (1.1-2.1) L 08/26/21 05:45 Urine Opiates Screen Negative (NEG=<300) 08/15/21 18:23 Urine Methadone Screen Negative (NEG=<300) 08/15/21 18:23 Ur Barbiturates Screen Positive (NEG=<200) A 08/15/21 18:23 Ur Phencyclidine Scrn Negative (NEG=<25) 08/15/21 18: Ur Amphetamines Screen Negative (NEG=<1000) 08/15/21 18:23 U Benzodiazepines Scrn Negative (NEG=<200) 08/15/21 18:23 Urine Cocaine Screen Negative (NEG=<300) 08/15/21 18:23 U Marijuana (THC) Screen Positive (NEG=<50) A 08/15/21 18:23 SARS CoV-2 RNA Rapid LAVERN Negative (NEGATIVE) 08/17/21 22:30 Tissue Pathology To follow 08/15/21 14:25 Plan (1) Pneumonia: Status: Acute Qualifiers: Laterality: bilateral Lung location: lower lobe of lung Pneumonia type : due to unspecified organism Qualified Code(s): J18.9 - Pneumonia, unspecified organism (2) Appendicitis with abscess: Status: Acute (3) SBO (small bowel obstruction): Status: Acute (4) Hypokalemia: Status: Acute (5) Chronic pain: Status: Chronic Qualifiers: Chronic pain type: other chronic pain Qualified Code(s): G89.29 - Other chronic pain (6) Schizophrenia: Status: Chronic Qualifiers: Schizophrenia type: unspecified Qualified Code(s): F20.9 - Schizophrenia, unspecified (7) Anxiety: Status: Chronic
--- NOTE | 2021-08-27 16:14 | DR.PROGNOT ---
Hospital Progress Notes - Progress Note for Day of: Progress Note Date: 08/27/21 - Chief Complaint Chief Complaint: doing fairly well . alert and cooperative . tolerating diet well and having normal bowel movements . normal CBC , BUN/CREAT. afebrile . all timoteo were removed .. - Past Medical Family Social History Past Med/Fam/Surg Hx: No changes since H&P Allergies: Allergies ciprofloxacin [From Cipro] Allergy (Verified 08/15/21 12:57) aspirin Adverse Reaction (Verified 08/15/21 01:19) NSAIDS (Non-Steroidal Anti-Inflamma Adverse Reaction (Verified 08/15/21 01:19) Sulfa (Sulfonamide Antibiotics) [SULFA] Adverse Reaction (Verified 08/15/21 01:19) - Review Of Systems ROS: No change since H&P - Vital Signs Vital Signs: Temperature 98.4 F Pulse Rate [Right] 97 Pulse Rate 84 Respiratory Rate 17 Blood Pressure [Left Arm] 140/67 Blood Pressure [Right Arm] 128/63 Blood Pressure 101/56 O2 Sat by Pulse Oximetry 97 - Physical Exam Oriented: Normal Eyes: Normal Ear: Normal Nose: Normal Throat: Normal Respiratory: Normal Cardiovascular: Normal : Normal GI:Auscultation: Normal GI:Palpation: Normal GI: Tenderness: Normal (soft, flat abdomen . non tender .BS+), Other (incision noted with timoteo, soft, BS+) Skin: Decreased Turgur Psychiatric: Normal Mood Description: Calm Affect: Normal Speech Pattern: Clear, Appropriate - Laboratory and Diagnostics Result Diagrams: 08/26/21 05:45 08/26/21 05:45 Labs: 08/15/21 14:25 Abdomen Wound Gram Stain - Final 08/15/21 14:25 Abdomen Wound Culture - Final Enterobacter Aerogenes 08/15/21 14:25 Abdomen Wound Culture - Final Pseudomonas Aeruginosa Laboratory WBC 10.5 X10^3/uL (3.6-10.0) H 08/26/21 05:45 RBC 3.54 X10^6/uL (3.5-5.4) 08/26/21 05:45 Hgb 11.8 g/dL (12.0-16.0) L 08/26/21 05:45 Hct 34.3 % (36.0-47.0) L 08/26/21 05:45 MCV 96.8 fL (80.0-100.0) 08/26/21 05:45 MCH 33.2 pg (27.0-34.0) 08/26/21 05:45 MCHC 34.3 g/dL (33.0-35.0) 08/26/21 05:45 RDW 15.4 % (11.6-16.5) 08/26/21 05:45 Plt Count 342 X10^3/uL (150.0-450.0) 08/26/21 05:45 Plt Count Comment Adequate (ADEQUATE) 08/23/21 05:39 MPV 9.9 fL (7.4-11.0) 08/26/21 05:45 Neut % (Auto) 68.6 % (42.0-75.0) 08/26/21 05:45 Lymph % (Auto) 15.6 % (21.0-51.0) L 08/26/21 05:45 [place] % (Auto) 13.2 % (0.0-13.0) H 08/26/21 05:45 Eos % (Auto) 1.3 % (0.9-2.9) 08/26/21 05:45 Baso % (Auto) 1.3 % (0.2-1.0) H 08/26/21 05:45 Neut # (Auto) 7.2 x10^3/uL (2.2-4.8) H 08/26/21 05:45 Lymph # (Auto) 1.6 X10^3/uL (1.3-2.9) 08/26/21 05:45 [place] # (Auto) 1.4 x10^3/uL (0.3-0.8) H 08/26/21 05:45 Eos # (Auto) 0.1 x10^3/uL (0.0-0.2) 08/26/21 05:45 Baso # (Auto) 0.1 X10^3/uL (0.0-0.1) 08/26/21 05:45 Absolute Nucleated RBC 0.1 /100WBC 08/26/21 05:45 Total Counted 100 08/23/21 05:39 Neutrophils % (Manual) 72 % (39-76) 08/23/21 05:39 Band Neutrophils % 1 % (0-10) 08/20/21 05:38 Lymphocytes % (Manual) 18 % (13-43) 08/23/21 05:39 Monocytes % (Manual) 8 % (4-9) 08/23/21 05:39 Metamyelocytes % 2 08/23/21 05:39 Myelocytes % 1 08/20/21 05:38 Promyelocytes % 1 08/16/21 06:00 Plt Morphology Comment Normal (NORMAL) 08/23/21 05:39 RBC Morphology Normal (NORMAL) 08/23/21 05:39 Target Cells Slight A 08/16/21 06:00 Stomatocytes Slight A 08/16/21 06:00 PT 12.3 SECONDS (11.8-14.3) 08/15/21 08:46 INR Target Range - 08/15/21 08:46 INR 0.96 (0.8-1.3) 08/15/21 08:46 Sample Site Rrad 08/16/21 08:00 ABG pH 7.300 (7.35-7.45) L 08/16/21 08:00 ABG pCO2 61.0 mmHg (35.0-45.0) H* 08/16/21 08:00 ABG pO2 63.0 mmHg (80.0-100.0) L 08/16/21 08:00 ABG HCO3 30.0 mmol/L (22-26) H 08/16/21 08:00 ABG O2 Saturation 89.0 % (90-100) L 08/16/21 08:00 ABG Base Excess 2.2 mmol/L (-2.0-2.0) H 08/16/21 08:00 Mac Test Pos 08/16/21 08:00 A-a Gradient 217.0 mmHg 08/16/21 08:00 FiO2 50.0 08/16/21 08:00 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, 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 08/16/21 08:00 Sodium 136 mmol/L (136-145) 08/26/21 05:45 Corrected Sodium TNP 08/26/21 05:45 Potassium 4.1 mmol/L (3.5-5.1) 08/26/21 05:45 Chloride 105 mmol/L (98-107) 08/26/21 05:45 Carbon Dioxide 25.4 mmol/L (21-32) 08/26/21 05:45 BUN 2 mg/dL (7-18) L 08/26/21 05:45 Creatinine 0.42 mg/dL (0.55-1.02) L 08/26/21 05:45 Est GFR (MDRD) Af Amer > 60 (>60) 08/26/21 05:45 Est GFR (MDRD) Non-Af > 60 (>60) 08/26/21 05:45 Glucose 98 mg/dL (65-99) 08/26/21 05:45 Lactic Acid 1.0 mmol/L (0.4-2.0) 08/17/21 09:33 Calcium 7.9 mg/dL (8.5-10.1) L 08/26/21 05:45 Corrected Calcium 9.3 mg/dL (8.5-10.1) 08/26/21 05:45 Magnesium 1.9 mg/dL (1.7-2.9) 08/26/21 05:45 Total Bilirubin 0.20 mg/dL (0.2-1.0) 08/26/21 05:45 AST 25 Units/L (15-37) 08/26/21 05:45 ALT 36 Units/L (12-78) 08/26/21 05:45 Alkaline Phosphatase 144 Units/L (46-116) H 08/26/21 05:45 Ammonia < 10 umol/L (11-32) L 08/15/21 11:39 Total Protein 5.4 g/dL (6.4-8.2) L 08/26/21 05:45 Albumin 2.2 g/dL (3.4-5.0) L 08/26/21 05:45 Globulin 3.2 g/dL (2.5-4.5) 08/26/21 05:45 Albumin/Globulin Ratio 0.7 Ratio (1.1-2.1) L 08/26/21 05:45 Urine Opiates Screen Negative (NEG=<300) 08/15/21 18:23 Urine Methadone Screen Negative (NEG=<300) 08/15/21 18:23 Ur Barbiturates Screen Positive (NEG=<200) A 08/15/21 18:23 Ur Phencyclidine Scrn Negative (NEG=<25) 08/15/21 18:23 Ur Amphetamines Screen Negative (NEG=<1000) 08/15/21 18:23 U Benzodiazepines Scrn Negative (NEG=<200) 08/15/21 18:23 Urine Cocaine Screen Negative (NEG=<300) 08/15/21 18:23 U Marijuana (THC) Screen Positive (NEG=<50) A 08/15/21 18:23 SARS CoV-2 RNA Rapid LAVERN Negative (NEGATIVE) 08/17/21 22:30 Tissue Pathology To follow 08/15/21 14:25 - Assessment and Plan 1: s/p laparotomy , appendectomy for acute ruptured appedicitis with RLQ abscess . SBO, abdominal adhesions . depression , anxiety . Schizophrenia . PO agitation and confusion had resolved . same post operative care ,. PT ,OT . supportive bj and placement when bed is available .. .. - Problem Patient Problems: Patient Problems Pneumonia (Acute) J18.9 Chronic pain (Chronic) G89.29 Anxiety (Chronic) F41.9 Schizophrenia (Chronic) F20.9 Appendicitis with abscess (Acute) K35.33 Hypokalemia (Acute) E87.6 SBO (small bowel obstruction) (Acute) K56.609
[2021-08-27] MEDS: MYSOLINE TAB 250 MG PO SCH (21:11)
[2021-08-28] MEDS: DUONEB 0.5 MG/3 MG (3 mL) NEB SCH ×6 (00:28→20:46)
[2021-08-28] MEDS: NORCO 5/325 MG TAB PO PRN ×4 (05:17→23:34)
[2021-08-28] MEDS ORDERED: LEXAPRO ONE ×2 (08:30→20:32)
[2021-08-28] MEDS: PULMICORT NEB TX 0.5 MG NEB SCH ×2 (08:54→20:46)
[2021-08-28] MEDS: GEODON PO SCH ×2 (10:03→21:24)
[2021-08-28] MEDS: PROTONIX TAB 40 MG PO SCH (10:04)
[2021-08-28] MEDS: COGENTIN TAB 1 MG PO SCH ×2 (10:04→21:22)
[2021-08-28] MEDS: LEXAPRO PO SCH ×2 (10:04→21:24)
[2021-08-28] MEDS: KLONOPIN TAB 0.5 MG PO SCH ×2 (10:05→21:23)
[2021-08-28] MEDS: NICOTINE PATCH TD SCH (10:05)
[2021-08-28] MEDS: LOVENOX INJ 40 MG SYR SC SCH (10:05)
--- NOTE | 2021-08-28 13:34 | PCM.PROG ---
Progress Note Progress Note for Day of Date of Exam: 08/28/21 Subjective Subjective: Patient seen at bedside, no events overnight. She has been doing well. She is able to use the bedside commode. She reports eating better. She had a BM this morning. [place] were removed yesterday from the abdominal wound. Plan: continue current management, doing well. Completed IV antibiotics. Continue PT/OT as tolerated, encouraged patient to work with PT as much as she can. Continue home medications. Patient's oral intake has improved. CM working on placement, referrals pending. Will check AM labs. Past Medical Family Social History Past Med/Fam/Surg Hx: No changes since H&P Allergies: Allergies ciprofloxacin [From Cipro] Allergy (Verified 08/15/21 12:57) aspirin Adverse Reaction (Verified 08/15/21 01:19) NSAIDS (Non-Steroidal Anti-Inflamma Adverse Reaction (Verified 08/15/21 01:19) Sulfa (Sulfonamide Antibiotics) [SULFA] Adverse Reaction (Verified 08/15/21 01:19) Review of Systems ROS: No change since H&P Vital Signs and I&O's Vital Signs: Temperature 98.2 F Pulse Rate [Right] 86 Pulse Rate 84 Respiratory Rate 20 Blood Pressure [Left Arm] 177/95 Blood Pressure [Right Arm] 128/63 Blood Pressure 101/56 O2 Sat by Pulse Oximetry 97 Intake and Output: Intake & Output 08/25/21 08/26/21 08/27/21 08/28/21 23:59 23:59 23:59 23:59 Intake Total 2574 / 2574 2353 / 2353 2125 / 2125 463 / 463 Balance 2574 / 2574 2353 / 2353 2125 / 2125 463 / 463 Physical Exam Oriented: Normal Eyes: Normal Ear: Normal Nose: Normal Throat: Normal Respiratory: Normal Cardiovascular: Normal Auscultation: Bowel Sounds: Normal Tenderness: Normal and Other (clean incision, no erythema noted ) Skin: Normal Psychiatric: Normal Mood Description: Calm Affect: Normal Speech Pattern: Clear and Appropriate Laboratory and Diagnostics Result Diagrams: 08/26/21 05:45 08/26/21 05:45 Labs: 08/15/21 14:25 Abdomen Wound Gram Stain - Final 08/15/21 14:25 Abdomen Wound Culture - Final Enterobacter Aerogenes 08/15/21 14:25 Abdomen Wound Culture - Final Pseudomonas Aeruginosa Laboratory WBC 10.5 X10^3/uL (3.6-10.0) H 08/26/21 05:45 RBC 3.54 X10^6/uL (3.5-5.4) 08/26/21 05:45 Hgb 11.8 g/dL (12.0-16.0) L 08/26/21 05:45 Hct 34.3 % (36.0-47.0) L 08/26/21 05:45 MCV 96.8 fL (80.0-100.0) 08/26/21 05:45 MCH 33.2 pg (27.0-34.0) 08/26/21 05:45 MCHC 34.3 g/dL (33.0-35.0) 08/26/21 05:45 RDW 15.4 % (11.6-16.5) 08/26/21 05:45 Plt Count 342 X10^3/uL (150.0-450.0) 08/26/21 05:45 Plt Count Comment Adequate (ADEQUATE) 08/23/21 05:39 MPV 9.9 fL (7.4-11.0) 08/26/21 05:45 Neut % (Auto) 68.6 % (42.0-75.0) 08/26/21 05:45 Lymph % (Auto) 15.6 % (21.0-51.0) L 08/26/21 05:45 [place] % (Auto) 13.2 % (0.0-13.0) H 08/26/21 05:45 Eos % (Auto) 1.3 % (0.9-2.9) 08/26/21 05:45 Baso % (Auto) 1.3 % (0.2-1.0) H 08/26/21 05:45 Neut # (Auto) 7.2 x10^3/uL (2.2-4.8) H 08/26/21 05:45 Lymph # (Auto) 1.6 X10^3/uL (1.3-2.9) 08/26/21 05:45 [place] # (Auto) 1.4 x10^3/uL (0.3-0.8) H 08/26/21 05:45 Eos # (Auto) 0.1 x10^3/uL (0.0-0.2) 08/26/21 05:45 Baso # (Auto) 0.1 X10^3/uL (0.0-0.1) 08/26/21 05:45 Absolute Nucleated RBC 0.1 /100WBC 08/26/21 05:45 Total Counted 100 08/23/21 05:39 Neutrophils % (Manual) 72 % (39-76) 08/23/21 05:39 Band Neutrophils % 1 % (0-10) 08/20/21 05:38 Lymphocytes % (Manual) 18 % (13-43) 08/23/21 05:39 Monocytes % (Manual) 8 % (4-9) 08/23/21 05:39 Metamyelocytes % 2 08/23/21 05:39 Myelocytes % 1 08/20/21 05:38 Promyelocytes % 1 08/16/21 06:00 Plt Morphology Comment Normal (NORMAL) 08/23/21 05:39 RBC Morphology Normal (NORMAL) 08/23/21 05:39 Target Cells Slight A 08/16/21 06:00 Stomatocytes Slight A 08/16/21 06:00 PT 12.3 SECONDS (11.8-14.3) 08/15/21 08:46 INR Target Range - 08/15/21 08:46 INR 0.96 (0.8-1.3) 08/15/21 08:46 Sample Site Rrad 08/16/21 08:00 ABG pH 7.300 (7.35-7.45) L 08/16/21 08:00 ABG pCO2 61.0 mmHg (35.0-45.0) H* 08/16/21 08:00 ABG pO2 63.0 mmHg (80.0-100.0) L 08/16/21 08:00 ABG HCO3 30.0 mmol/L (22-26) H 08/16/21 08:00 ABG O2 Saturation 89.0 % (90-100) L 08/16/21 08:00 ABG Base Excess 2.2 mmol/L (-2.0-2.0) H 08/16/21 08:00 Mac Test Pos 08/16/21 08:00 A-a Gradient 217.0 mmHg 08/16/21 08:00 FiO2 50.0 08/16/21 08:00 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, 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 08/16/21 08:00 Sodium 136 mmol/L (136-145) 08/26/21 05:45 Corrected Sodium TNP 08/26/21 05:45 Potassium 4.1 mmol/L (3.5-5.1) 08/26/21 05:45 Chloride 105 mmol/L (98-107) 08/26/21 05:45 Carbon Dioxide 25.4 mmol/L (21-32) 08/26/21 05:45 BUN 2 mg/dL (7-18) L 08/26/21 05:45 Creatinine 0.42 mg/dL (0.55-1.02) L 08/26/21 05:45 Est GFR (MDRD) Af Amer > 60 (>60) 08/26/21 05:45 Est GFR (MDRD) Non-Af > 60 (>60) 08/26/21 05:45 Glucose 98 mg/dL (65-99) 08/26/21 05:45 Lactic Acid 1.0 mmol/L (0.4-2.0) 08/17/21 09:33 Calcium 7.9 mg/dL (8.5-10.1) L 08/26/21 05:45 Corrected Calcium 9.3 mg/dL (8.5-10.1) 08/26/21 05:45 Magnesium 1.9 mg/dL (1.7-2.9) 08/26/21 05:45 Total Bilirubin 0.20 mg/dL (0.2-1.0) 08/26/21 05:45 AST 25 Units/L (15-37) 08/26/21 05:45 ALT 36 Units/L (12-78) 08/26/21 05:45 Alkaline Phosphatase 144 Units/L (46-116) H 08/26/21 05:45 Ammonia < 10 umol/L (11-32) L 08/15/21 11:39 Total Protein 5.4 g/dL (6.4-8.2) L 08/26/21 05:45 Albumin 2.2 g/dL (3.4-5.0) L 08/26/21 05:45 Globulin 3.2 g/dL (2.5-4.5) 08/26/21 05:45 Albumin/Globulin Ratio 0.7 Ratio (1.1-2.1) L 08/26/21 05:45 Urine Opiates Screen Negative (NEG=<300) 08/15/21 18:23 Urine Methadone Screen Negative (NEG=<300) 08/15/21 18:23 Ur Barbiturates Screen Positive (NEG=<200) A 08/15/21 18:23 Ur Phencyclidine Scrn Negative (NEG=<25) 08/15/21 18:23 Ur Amphetamines Screen Negative (NEG=<1000) 08/15/21 18:23 U Benzodiazepines Scrn Negative (NEG=<200) 08/15/21 18:23 Urine Cocaine Screen Negative (NEG=<300) 08/15/21 18:23 U Marijuana (THC) Screen Positive (NEG=<50) A 08/15/21 18:23 SARS CoV-2 RNA Rapid LAVERN Negative (NEGATIVE) 08/17/21 22:30 Tissue Pathology To follow 08/15/21 14:25 Plan (1) Pneumonia: Status: Acute Qualifiers: Laterality: bilateral Lung location: lower lobe of lung Pneumonia type: due to unspecified organism Qualified Code(s): J18.9 - Pneumonia, unspecified organism (2) Appendicitis with abscess: Status: Resolved (3) SBO (small bowel obstruction): Status: Acute (4) Hypokalemia: Status: Acute (5) Chronic pain: Status: Chronic Qualifiers: Chronic pain type: other chronic pain Qualified Code(s): G89.29 - Other chronic pain (6) Schizophrenia: Status: Chronic Qualifiers: Schizophrenia type: unspecified Qualified Code(s): F20.9 - Schizophrenia, unspecified (7) Anxiety: Status: Chronic
--- NOTE | 2021-08-28 14:06 | DR.PROGNOT ---
Hospital Progress Notes - Progress Note for Day of: Progress Note Date: 08/28/21 - Chief Complaint Chief Complaint: doing fairly well . alert and cooperative . tolerating diet well and having normal bowel movements . normal CBC , BUN/CREAT. afebrile . all [place] were removed .. - Past Medical Family Social History Past Med/Fam/Surg Hx: No changes since H&P Allergies: Allergies ciprofloxacin [From Cipro] Allergy (Verified 08/15/21 12:57) aspirin Adverse Reaction (Verified 08/15/21 01:19) NSAIDS (Non-Steroidal Anti-Inflamma Adverse Reaction (Verified 08/15/21 01:19) Sulfa (Sulfonamide Antibiotics) [SULFA] Adverse Reaction (Verified 08/15/21 01:19) - Review Of Systems ROS: No change since H&P - Vital Signs Vital Signs: Temperature 98.2 F Pulse Rate [Right] 86 Pulse Rate 84 Respiratory Rate 20 Blood Pressure [Left Arm] 177/95 Blood Pressure [Right Arm] 128/63 Blood Pressure 101/56 O2 Sat by Pulse Oximetry 97 - Physical Exam Oriented: Normal Eyes: Normal Ear: Normal Nose: Normal Throat: Normal Respiratory: Normal Cardiovascular: Normal : Normal GI:Auscultation: Normal GI:Palpation: Normal GI: Tenderness: Normal, Other (clean incision, erythea) Skin: Decreased [place] Psychiatric: Normal Mood Description: Calm Affect: Normal Speech Pattern: Clear, Appropriate - Laboratory and Diagnostics Result Diagrams: 08/26/21 05:45 08/26/21 05:45 Labs: 08/15/21 14:25 Abdomen Wound Gram Stain - Final 08/15/21 14:25 Abdomen Wound Culture - Final Enterobacter Aerogenes 08/15/21 14:25 Abdomen Wound Culture - Final Pseudomonas Aeruginosa Laboratory WBC 10.5 X10^3/uL (3.6-10.0) H 08/26/21 05:45 RBC 3.54 X10^6/uL (3.5-5.4) 08/26/21 05:45 Hgb 11.8 g/dL (12.0-16.0) L 08/26/21 05:45 Hct 34.3 % (36.0-47.0) L 08/26/21 05:45 MCV 96.8 fL (80.0-100.0) 08/26/21 05:45 MCH 33.2 pg (27.0-34.0) 08/26/21 05:45 MCHC 34.3 g/dL (33.0-35.0) 08/26/21 05:45 RDW 15.4 % (11.6-16.5) 08/26/21 05:45 Plt Count 342 X10^3/uL (150.0-450.0) 08/26/21 05:45 Plt Count Comment Adequate (ADEQUATE) 08/23/21 05:39 MPV 9.9 fL (7.4-11.0) 08/26/21 05:45 Neut % (Auto) 68.6 % (42.0-75.0) 08/26/21 05:45 Lymph % (Auto) 15.6 % (21.0-51.0) L 08/26/21 05:45 [place] % (Auto) 13.2 % (0.0-13.0) H 08/26/21 05:45 Eos % (Auto) 1.3 % (0.9-2.9) 08/26/21 05:45 Baso % (Auto) 1.3 % (0.2-1.0) H 08/26/21 05:45 Neut # (Auto) 7.2 x10^3/uL (2.2-4.8) H 08/26/21 05:45 Lymph # (Auto) 1.6 X10^3/uL (1.3-2.9) 08/26/21 05:45 [place] # (Auto) 1.4 x10^3/uL (0.3-0.8) H 08/26/21 05:45 Eos # (Auto) 0.1 x10^3/uL (0.0-0.2) 08/26/21 05:45 Baso # (Auto) 0.1 X10^3/uL (0.0-0.1) 08/26/21 05:45 Absolute Nucleated RBC 0.1 /100WBC 08/26/21 05:45 Total Counted 100 08/23/21 05:39 Neutrophils % (Manual) 72 % (39-76) 08/23/21 05:39 Band Neutrophils % 1 % (0-10) 08/20/21 05:38 Lymphocytes % (Manual) 18 % (13-43) 08/23/21 05:39 Monocytes % (Manual) 8 % (4-9) 08/23/21 05:39 Metamyelocytes % 2 08/23/21 05:39 Myelocytes % 1 08/20/21 05:38 Promyelocytes % 1 08/16/21 06:00 Plt Morphology Comment Normal (NORMAL) 08/23/21 05:39 RBC Morphology Normal (NORMAL) 08/23/21 05:39 Target Cells Slight A 08/16/21 06:00 Stomatocytes Slight A 08/16/21 06:00 PT 12.3 SECONDS (11.8-14.3) 08/15/21 08:46 INR Target Range - 08/15/21 08:46 INR 0.96 (0.8-1.3) 08/15/21 08:46 Sample Site Rrad 08/16/21 08:00 ABG pH 7.300 (7.35-7.45) L 08/16/21 08:00 ABG pCO2 61.0 mmHg (35.0-45.0) H* 08/16/21 08:00 ABG pO2 63.0 mmHg (80.0-100.0) L 08/16/21 08:00 ABG HCO3 30.0 mmol/L (22-26) H 08/16/21 08:00 ABG O2 Saturation 89.0 % (90-100) L 08/16/21 08:00 ABG Base Excess 2.2 mmol/L (-2.0-2.0) H 08/16/21 08:00 Mac Test Pos 08/16/21 08:00 A-a Gradient 217.0 mmHg 08/16/21 08:00 FiO2 50.0 08/16/21 08:00 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, 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 08/16/21 08:00 Sodium 136 mmol/L (136-145) 08/26/21 05:45 Corrected Sodium TNP 08/26/21 05:45 Potassium 4.1 mmol/L (3.5-5.1) 08/26/21 05:45 Chloride 105 mmol/L (98-107) 08/26/21 05:45 Carbon Dioxide 25.4 mmol/L (21-32) 08/26/21 05:45 BUN 2 mg/dL (7-18) L 08/26/21 05:45 Creatinine 0.42 mg/dL (0.55-1.02) L 08/26/21 05:45 Est GFR (MDRD) Af Amer > 60 (>60) 08/26/21 05:45 Est GFR (MDRD) Non-Af > 60 (>60) 08/26/21 05:45 Glucose 98 mg/dL (65-99) 08/26/21 05:45 Lactic Acid 1.0 mmol/L (0.4-2.0) 08/17/21 09:33 Calcium 7.9 mg/dL (8.5-10.1) L 08/26/21 05:45 Corrected Calcium 9.3 mg/dL (8.5-10.1) 08/26/21 05:45 Magnesium 1.9 mg/dL (1.7-2.9) 08/26/21 05:45 Total Bilirubin 0.20 mg/dL (0.2-1.0) 08/26/21 05:45 AST 25 Units/L (15-37) 08/26/21 05:45 ALT 36 Units/L (12-78) 08/26/21 05:45 Alkaline Phosphatase 144 Units/L (46-116) H 08/26/21 05:45 Ammonia < 10 umol/L (11-32) L 08/15/21 11:39 Total Protein 5.4 g/dL (6.4-8.2) L 08/26/21 05:45 Albumin 2.2 g/dL (3.4-5.0) L 08/26/21 05:45 Globulin 3.2 g/dL (2.5-4.5) 08/26/21 05:45 Albumin/Globulin Ratio 0.7 Ratio (1.1-2.1) L 08/26/21 05:45 Urine Opiates Screen Negative (NEG=<300) 08/15/21 18:23 Urine Methadone Screen Negative (NEG=<300) 08/15/21 18:23 Ur Barbiturates Screen Positive (NEG=<200) A 08/15/21 18:23 Ur Phencyclidine Scrn Negative (NEG=<25) 08/15/21 18:23 Ur Amphetamines Screen Negative (NEG=<1000) 08/15/21 18:23 U Benzodiazepines Scrn Negative (NEG=<200) 08/15/21 18:23 Urine Cocaine Screen Negative (NEG=<300) 08/15/21 18:23 U Marijuana (THC) Screen Positive (NEG=<50) A 08/15/21 18:23 SARS CoV-2 RNA Rapid LAVERN Negative (NEGATIVE) 08/17/21 22:30 Tissue Pathology To follow 08/15/21 14:25 - Assessment and Plan 1: s/p laparotomy , appendectomy for acute ruptured appedicitis with RLQ abscess . SBO, abdominal adhesions . depression , anxiety . Schizophrenia . PO agitation and confusion had resolved . same post operative care ,. PT ,OT . supportive bj and placement when bed is available .. .. - Problem Patient Problems: Patient Problems Pneumonia (Acute) J18.9 Chronic pain (Chronic) G89.29 Anxiety (Chronic) F41.9 Schizophrenia (Chronic) F20.9 Hypokalemia (Acute) E87.6 SBO (small bowel obstruction) (Acute) K56.609 Appendicitis with abscess (Resolved) K35.33
[2021-08-28] MEDS: MYSOLINE TAB 250 MG PO SCH (21:23)
[2021-08-28] MEDS: BUTT CREAM (COMPOUND) TOP PRN (21:24)
[2021-08-29] MEDS: DUONEB 0.5 MG/3 MG (3 mL) NEB SCH ×6 (00:34→21:00)
[2021-08-29] MEDS: NORCO 5/325 MG TAB PO PRN ×3 (06:09→18:02)
[2021-08-29 06:34] LABS: BLOOD UREA NITROGEN 5 mg/dL (7-18); CARBON DIOXIDE 27.6 mmol/L (21-32); CHLORIDE 104 mmol/L (98-107); CREATININE 0.39 mg/dL (0.55-1.02); SODIUM 139 mmol/L (136-145); eGFR NON BLACK RACES > 60 (>60)
[2021-08-29 06:54] LABS: BASOPHILS # (AUTO) 0.1 X10^3/uL (0.0-0.1); EOSINOPHILS # (AUTO) 0.1 x10^3/uL (0.0-0.2); EOSINOPHILS % (AUTO) 0.9 % (0.9-2.9); HEMATOCRIT 34.9 % (36.0-47.0); LYMPHOCYTES # (AUTO) 1.3 X10^3/uL (1.3-2.9); LYMPHOCYTES % (AUTO) 18.1 % (21.0-51.0); MEAN CORPUSCULAR HEMOGLOBIN 33.5 pg (27.0-34.0); MEAN CORPUSCULAR HGB CONC 34.4 g/dL (33.0-35.0); MEAN CORPUSCULAR VOLUME 97.4 fL (80.0-100.0); MEAN PLATELET VOLUME 9.7 fL (7.4-11.0); MONOCYTES # (AUTO) 0.9 x10^3/uL (0.3-0.8); NEUTROPHILS # (AUTO) 4.9 x10^3/uL (2.2-4.8); RED BLOOD COUNT 3.58 X10^6/uL (3.5-5.4); RED CELL DISTRIBUTION WIDTH 14.6 % (11.6-16.5); WHITE BLOOD COUNT 7.2 X10^3/uL (3.6-10.0)
[2021-08-29] MEDS ORDERED: LEXAPRO ONE ×2 (08:32→20:35)
[2021-08-29] MEDS: GEODON PO SCH ×2 (08:41→21:11)
[2021-08-29] MEDS: COGENTIN TAB 1 MG PO SCH ×2 (08:41→21:11)
[2021-08-29] MEDS: NICOTINE PATCH TD SCH (08:42)
[2021-08-29] MEDS: LEXAPRO PO SCH ×2 (08:42→21:10)
[2021-08-29] MEDS: LOVENOX INJ 40 MG SYR SC SCH (08:42)
[2021-08-29] MEDS: KLONOPIN TAB 0.5 MG PO SCH ×2 (08:42→21:12)
[2021-08-29] MEDS: PROTONIX TAB 40 MG PO SCH (08:43)
--- NOTE | 2021-08-29 08:53 | DR.PROGNOT ---
Hospital Progress Notes - Progress Note for Day of: Progress Note Date: 08/29/21 - Chief Complaint Chief Complaint: doing fairly well . alert and cooperative . tolerating diet well ( appetite is poor ).. having normal bowel movements . normal CBC , BUN/CREAT. afebrile . small openarea 1 x 2 cm upper incision ..no infection .. - Past Medical Family Social History Past Med/Fam/Surg Hx: No changes since H&P Allergies: Allergies ciprofloxacin [From Cipro] Allergy (Verified 08/15/21 12:57) aspirin Adverse Reaction (Verified 08/15/21 01:19) NSAIDS (Non-Steroidal Anti-Inflamma Adverse Reaction (Verified 08/15/21 01:19) Sulfa (Sulfonamide Antibiotics) [SULFA] Adverse Reaction (Verified 08/15/21 01:19) - Review Of Systems ROS: No change since H&P - Vital Signs Vital Signs: Temperature 97.7 F Pulse Rate [Right] 98 Pulse Rate 85 Respiratory Rate 34 Blood Pressure [Left Arm] 175/86 Blood Pressure [Right Arm] 128/63 Blood Pressure 101/56 O2 Sat by Pulse Oximetry 97 - Physical Exam Oriented: Normal Eyes: Normal Ear: Normal Nose: Normal Throat: Normal Respiratory: Normal Cardiovascular: Normal : Normal GI:Auscultation: Normal GI:Palpation: Normal GI: Tenderness: Normal, Other (clean incision, no erythema noted) Skin: Normal Psychiatric: Normal Mood Description: Calm Affect: Normal Speech Pattern: Clear, Appropriate - Laboratory and Diagnostics Result Diagrams: 08/29/21 05:39 08/29/21 05:43 Labs: 08/15/21 14:25 Abdomen Wound Gram Stain - Final 08/15/21 14:25 Abdomen Wound Culture - Final Enterobacter Aerogenes 08/15/21 14:25 Abdomen Wound Culture - Final Pseudomonas Aeruginosa Laboratory WBC 7.2 X10^3/uL (3.6-10.0) 08/29/21 05:39 RBC 3.58 X10^6/uL (3.5-5.4) 08/29/21 05:39 Hgb 12.0 g/dL (12.0-16.0) 08/29/21 05:39 Hct 34.9 % (36.0-47.0) L 08/29/21 05:39 MCV 97.4 fL (80.0-100.0) 08/29/21 05:39 MCH 33.5 pg (27.0-34.0) 08/29/21 05:39 MCHC 34.4 g/dL (33.0-35.0) 08/29/21 05:39 RDW 14.6 % (11.6-16.5) 08/29/21 05:39 Plt Count 306 X10^3/uL (150.0-450.0) 08/29/21 05:39 Plt Count Comment Adequate (ADEQUATE) 08/23/21 05:39 MPV 9.7 fL (7.4-11.0) 08/29/21 05:39 Neut % (Auto) 68.0 % (42.0-75.0) 08/29/21 05:39 Lymph % (Auto) 18.1 % (21.0-51.0) L 08/29/21 05:39 [place] % (Auto) 12.0 % (0.0-13.0) 08/29/21 05:39 Eos % (Auto) 0.9 % (0.9-2.9) 08/29/21 05:39 Baso % (Auto) 1.0 % (0.2-1.0) 08/29/21 05:39 Neut # (Auto) 4.9 x10^3/uL (2.2-4.8) H 08/29/21 05:39 Lymph # (Auto) 1.3 X10^3/uL (1.3-2.9) 08/29/21 05:39 [place] # (Auto) 0.9 x10^3/uL (0.3-0.8) H 08/29/21 05:39 Eos # (Auto) 0.1 x10^3/uL (0.0-0.2) 08/29/21 05:39 Baso # (Auto) 0.1 X10^3/uL (0.0-0.1) 08/29/21 05:39 Absolute Nucleated RBC 0.0 /100WBC 08/29/21 05:39 Total Counted 100 08/23/21 05:39 Neutrophils % (Manual) 72 % (39-76) 08/23/21 05:39 Band Neutrophils % 1 % (0-10) 08/20/21 05:38 Lymphocytes % (Manual) 18 % (13-43) 08/23/21 05:39 Monocytes % (Manual) 8 % (4-9) 08/23/21 05:39 Metamyelocytes % 2 08/23/21 05:39 Myelocytes % 1 08/20/21 05:38 Promyelocytes % 1 08/16/21 06:00 Plt Morphology Comment Normal (NORMAL) 08/23/21 05:39 RBC Morphology Normal (NORMAL) 08/23/21 05:39 Target Cells Slight A 08/16/21 06:00 Stomatocytes Slight A 08/16/21 06:00 PT 12.3 SECONDS (11.8-14.3) 08/15/21 08:46 INR Target Range - 08/15/21 08:46 INR 0.96 (0.8-1.3) 08/15/21 08:46 Sample Site Rrad 08/16/21 08:00 ABG pH 7.300 (7.35-7.45) L 08/16/21 08:00 ABG pCO2 61.0 mmHg (35.0-45.0) H* 08/16/21 08:00 ABG pO2 63.0 mmHg (80.0-100.0) L 08/16/21 08:00 ABG HCO3 30.0 mmol/L (22-26) H 08/16/21 08:00 ABG O2 Saturation 89.0 % (90-100) L 08/16/21 08:00 ABG Base Excess 2.2 mmol/L (-2.0-2.0) H 08/16/21 08:00 Mac Test Pos 08/16/21 08:00 A-a Gradient 217.0 mmHg 08/16/21 08:00 FiO2 50.0 08/16/21 08:00 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, 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 08/16/21 08:00 Sodium 139 mmol/L (136-145) 08/29/21 05:43 Corrected Sodium TNP 08/29/21 05:43 Potassium 3.6 mmol/L (3.5-5.1) 08/29/21 05:43 Chloride 104 mmol/L (98-107) 08/29/21 05:43 Carbon Dioxide 27.6 mmol/L (21-32) 08/29/21 05:43 BUN 5 mg/dL (7-18) L 08/29/21 05:43 Creatinine 0.39 mg/dL (0.55-1.02) L 08/29/21 05:43 Est GFR (MDRD) Af Amer > 60 (>60) 08/29/21 05:43 Est GFR (MDRD) Non-Af > 60 (>60) 08/29/21 05:43 Glucose 91 mg/dL (65-99) 08/29/21 05:43 Lactic Acid 1.0 mmol/L (0.4-2.0) 08/17/21 09:33 Calcium 8.0 mg/dL (8.5-10.1) L 08/29/21 05:43 Corrected Calcium 9.3 mg/dL (8.5-10.1) 08/26/21 05:45 Magnesium 1.9 mg/dL (1.7-2.9) 08/26/21 05:45 Total Bilirubin 0.20 mg/dL (0.2-1.0) 08/26/21 05:45 AST 25 Units/L (15-37) 08/26/21 05:45 ALT 36 Units/L (12-78) 08/26/21 05:45 Alkaline Phosphatase 144 Units/L (46-116) H 08/26/21 05:45 Ammonia < 10 umol/L (11-32) L 08/15/21 11:39 Total Protein 5.4 g/dL (6.4-8.2) L 08/26/21 05:45 Albumin 2.2 g/dL (3.4-5.0) L 08/26/21 05:45 Globulin 3.2 g/dL (2.5-4.5) 08/26/21 05:45 Albumin/Globulin Ratio 0.7 Ratio (1.1-2.1) L 08/26/21 05:45 Urine Opiates Screen Negative (NEG=<300) 08/15/21 18:23 Urine Methadone Screen Negative (NEG=<300) 08/15/21 18:23 Ur Barbiturates Screen Positive (NEG=<200) A 08/15/21 18:23 Ur Phencyclidine Scrn Negative (NEG=<25) 08/15/21 18:23 Ur Amphetamines Screen Negative (NEG=<1000) 08/15/21 18:23 U Benzodiazepines Scrn Negative (NEG=<200) 08/15/21 18:23 Urine Cocaine Screen Negative (NEG=<300) 08/15/21 18:23 U Marijuana (THC) Screen Positive (NEG=<50) A 08/15/21 18:23 SARS CoV-2 RNA Rapid LAVERN Negative (NEGATIVE) 08/17/21 22:30 Tissue Pathology To follow 08/15/21 14:25 - Assessment and Plan 1: s/p laparotomy ,. depression , anxiety . Schizophrenia . PO agitation and confusion had resolved . same post operative care ,. PT ,OT . supportive bj and placement when bed is available .. .. - Problem Patient Problems: Patient Problems Pneumonia (Acute) J18.9 Chronic pain (Chronic) G89.29 Anxiety (Chronic) F41.9 Schizophrenia (Chronic) F20.9 Hypokalemia (Acute) E87.6 SBO (small bowel obstruction) (Acute) K56.609 Appendicitis with abscess (Resolved) K35.33
[2021-08-29] MEDS: PULMICORT NEB TX 0.5 MG NEB SCH (10:04)
[2021-08-29] MEDS: HYDROGEN PEROXIDE 3% EXT PRN ×2 (12:02→21:13)
[2021-08-29] MEDS: K-DUR TAB 20 MEQ PO PRN (12:02)
--- NOTE | 2021-08-29 15:01 | PCM.PROG ---
Progress Note Progress Note for Day of Date of Exam: 08/29/21 Subjective Subjective: Patient seen at bedside, no events overnight. She has been doing well. She is alert and oriented. Her appetite is getting better. She continues to work with PT/OT. Patient's records were sent for review for rehab. Labs reviewed Plan: continue current management, doing well. Completed IV antibiotics. Continue PT/OT as tolerated, encouraged patient to work with PT as much as she can. Dressing change as per surgery. Continue home medications. CM working on placement, referrals pending. Past Medical Family Social History Past Med/Fam/Surg Hx: No changes since H&P Allergies: Allergies ciprofloxacin [From Cipro] Allergy (Verified 08/15/21 12:57) aspirin Adverse Reaction (Verified 08/15/21 01:19) NSAIDS (Non-Steroidal Anti-Inflamma Adverse Reaction (Verified 08/15/21 01:19) Sulfa (Sulfonamide Antibiotics) [SULFA] Adverse Reaction (Verified 08/15/21 01:19) Review of Systems ROS: No change since H&P Vital Signs and I&O's Vital Signs: Temperature 98.5 F Pulse Rate [Right] 97 Pulse Rate 85 Respiratory Rate 20 Blood Pressure [Left Arm] 129/72 Blood Pressure [Right Arm] 128/63 Blood Pressure 101/56 O2 Sat by Pulse Oximetry 96 Intake and Output: Intake & Output 08/26/21 08/27/21 08/28/21 08/29/21 23:59 23:59 23:59 23:59 Intake Total 2353 / 2353 2125 / 2125 1770 / 1770 520 / 520 Balance 2353 / 2353 2125 / 2125 1770 / 1770 520 / 520 Physical Exam Oriented: Normal Eyes: Normal Ear: Normal Nose: Normal Throat: Normal Respiratory: Normal Cardiovascular: Normal Auscultation: Bowel Sounds: Normal Tenderness: Normal and Other (dressing intact ) Skin: Normal Psychiatric: Normal Mood Description: Calm Affect: Normal Speech Pattern: Clear and Appropriate Laboratory and Diagnostics Result Diagrams: 08/29/21 05:39 08/29/21 05:43 Labs: 08/15/21 14:25 Abdomen Wound Gram Stain - Final 08/15/21 14:25 Abdomen Wound Culture - Final Enterobacter Aerogenes 08/15/21 14:25 Abdomen Wound Culture - Final Pseudomonas Aeruginosa Laboratory WBC 7.2 X10^3/uL (3.6-10.0) 08/29/21 05:39 RBC 3.58 X10^6/uL (3.5-5.4) 08/29/21 05:39 Hgb 12.0 g/dL (12.0-16.0) 08/29/21 05:39 Hct 34.9 % (36.0-47.0) L 08/29/21 05:39 MCV 97.4 fL (80.0-100.0) 08/29/21 05:39 MCH 33.5 pg (27.0-34.0) 08/29/21 05:39 MCHC 34.4 g/dL (33.0-35.0) 08/29/21 05:39 RDW 14.6 % (11.6-16.5) 08/29/21 05:39 Plt Count 306 X10^3/uL (150.0-450.0) 08/29/21 05:39 Plt Count Comment Adequate (ADEQUATE) 08/23/21 05:39 MPV 9.7 fL (7.4-11.0) 08/29/21 05:39 Neut % (Auto) 68.0 % (42.0-75.0) 08/29/21 05:39 Lymph % (Auto) 18.1 % (21.0-51.0) L 08/29/21 05:39 [place] % (Auto) 12.0 % (0.0-13.0) 08/29/21 05:39 Eos % (Auto) 0.9 % (0.9-2.9) 08/29/21 05:39 Baso % (Auto) 1.0 % (0.2-1.0) 08/29/21 05:39 Neut # (Auto) 4.9 x10^3/uL (2.2-4.8) H 08/29/21 05:39 Lymph # (Auto) 1.3 X10^3/uL (1.3-2.9) 08/29/21 05:39 [place] # (Auto) 0.9 x10^3/uL (0.3-0.8) H 08/29/21 05:39 Eos # (Auto) 0.1 x10^3/uL (0.0-0.2) 08/29/21 05:39 Baso # (Auto) 0.1 X10^3/uL (0.0-0.1) 08/29/21 05:39 Absolute Nucleated RBC 0.0 /100WBC 08/29/21 05:39 Total Counted 100 08/23/21 05:39 Neutrophils % (Manual) 72 % (39-76) 08/23/21 05:39 Band Neutrophils % 1 % (0-10) 08/20/21 05:38 Lymphocytes % (Manual) 18 % (13-43) 08/23/21 05:39 Monocytes % (Manual) 8 % (4-9) 08/23/21 05:39 Metamyelocytes % 2 08/23/21 05:39 Myelocytes % 1 08/20/21 05:38 Promyelocytes % 1 08/16/21 06:00 Plt Morphology Comment Normal (NORMAL) 08/23/21 05:39 RBC Morphology Normal (NORMAL) 08/23/21 05:39 Target Cells Slight A 08/16/21 06:00 Stomatocytes Slight A 08/16/21 06:00 PT 12.3 SECONDS (11.8-14.3) 08/15/21 08:46 INR Target Range - 08/15/21 08:46 INR 0.96 (0.8-1.3) 08/15/21 08:46 Sample Site Rrad 08/16/21 08:00 ABG pH 7.300 (7.35-7.45) L 08/16/21 08:00 ABG pCO2 61.0 mmHg (35.0-45.0) H* 08/16/21 08:00 ABG pO2 63.0 mmHg (80.0-100.0) L 08/16/21 08:00 ABG HCO3 30.0 mmol/L (22-26) H 08/16/21 08:00 ABG O2 Saturation 89.0 % (90-100) L 08/16/21 08:00 ABG Base Excess 2.2 mmol/L (-2.0-2.0) H 08/16/21 08:00 Mac Test Pos 08/16/21 08:00 A-a Gradient 217.0 mmHg 08/16/21 08:00 FiO2 50.0 08/16/21 08:00 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, 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 01/28/22 08:00 Sodium 139 mmol/L (136-145) 08/29/21 05:43 Corrected Sodium TNP 08/29/21 05:43 Potassium 3.6 mmol/L (3.5-5.1) 08/29/21 05:43 Chloride 104 mmol/L (98-107) 08/29/21 05:43 Carbon Dioxide 27.6 mmol/L (21-32) 08/29/21 05:43 BUN 5 mg/dL (7-18) L 08/29/21 05:43 Creatinine 0.39 mg/dL (0.55-1.02) L 08/29/21 05:43 Est GFR (MDRD) Af Amer > 60 (>60) 08/29/21 05:43 Est GFR (MDRD) Non-Af > 60 (>60) 08/29/21 05:43 Glucose 91 mg/dL (65-99) 08/29/21 05:43 Lactic Acid 1.0 mmol/L (0.4-2.0) 08/17/21 09:33 Calcium 8.0 mg/dL (8.5-10.1) L 08/29/21 05:43 Corrected Calcium 9.3 mg/dL (8.5-10.1) 08/26/21 05:45 Magnesium 1.9 mg/dL (1.7-2.9) 08/26/21 05:45 Total Bilirubin 0.20 mg/dL (0.2-1.0) 08/26/21 05:45 AST 25 Units/L (15-37) 08/26/21 05:45 ALT 36 Units/L (12-78) 08/26/21 05:45 Alkaline Phosphatase 144 Units/L (46-116) H 08/26/21 05:45 Ammonia < 10 umol/L (11-32) L 08/15/21 11:39 Total Protein 5.4 g/dL (6.4-8.2) L 08/26/21 05:45 Albumin 2.2 g/dL (3.4-5.0) L 08/26/21 05:45 Globulin 3.2 g/dL (2.5-4.5) 08/26/21 05:45 Albumin/Globulin Ratio 0.7 Ratio (1.1-2.1) L 08/26/21 05:45 Urine Opiates Screen Negative (NEG=<300) 08/15/21 18:23 Urine Methadone Screen Negative (NEG=<300) 08/15/21 18:23 Ur Barbiturates Screen Positive (NEG=<200) A 08/15/21 18:23 Ur Phencyclidine Scrn Negative (NEG=<25) 08/15/21 18: Ur Amphetamines Screen Negative (NEG=<1000) 08/15/21 18:23 U Benzodiazepines Scrn Negative (NEG=<200) 08/15/21 18:23 Urine Cocaine Screen Negative (NEG=<300) 08/15/21 18:23 U Marijuana (THC) Screen Positive (NEG=<50) A 08/15/21 18:23 SARS CoV-2 RNA Rapid LAVERN Negative (NEGATIVE) 08/17/21 22:30 Tissue Pathology To follow 08/15/21 14:25 Plan (1) Pneumonia: Status: Acute Qualifiers: Laterality: bilateral Lung location: lower lobe of lung Pneumonia type: due to unspecified organism Qualified Code(s): J18.9 - Pneumonia, unspecified organism (2) Appendicitis with abscess: Status: Resolved (3) SBO (small bowel obstruction): Status: Acute (4) Hypokalemia: Status: Acute (5) Chronic pain: Status: Chronic Qualifiers: Chronic pain type: other chronic pain Qualified Code(s): G89.29 - Other chronic pain (6) Schizophrenia: Status: Chronic Qualifiers: Schizophrenia type: unspecified Qualified Code(s): F20.9 - Schizophrenia, unspecified (7) Anxiety: Status: Chronic
[2021-08-29] MEDS: MYSOLINE TAB 250 MG PO SCH (21:11)
[2021-08-30] MEDS: NORCO 5/325 MG TAB PO PRN ×4 (00:13→18:04)
[2021-08-30] MEDS ORDERED: LEXAPRO ONE ×2 (09:00→19:43)
[2021-08-30] MEDS: GEODON PO SCH ×2 (09:02→21:11)
[2021-08-30] MEDS: COGENTIN TAB 1 MG PO SCH ×2 (09:02→21:10)
[2021-08-30] MEDS: PROTONIX TAB 40 MG PO SCH (09:03)
[2021-08-30] MEDS: KLONOPIN TAB 0.5 MG PO SCH ×2 (09:03→21:11)
[2021-08-30] MEDS: LOVENOX INJ 40 MG SYR SC SCH (09:03)
[2021-08-30] MEDS: NICOTINE PATCH TD SCH (09:03)
[2021-08-30] MEDS: LEXAPRO PO SCH ×2 (09:03→21:11)
[2021-08-30] MEDS: HYDROGEN PEROXIDE 3% EXT PRN (09:06)
[2021-08-30 09:15] LABS: BASOPHILS # (AUTO) 0.1 X10^3/uL (0.0-0.1); BASOPHILS % (AUTO) 1.8 % (0.2-1.0); EOSINOPHILS # (AUTO) 0.1 x10^3/uL (0.0-0.2); HEMATOCRIT 34.7 % (36.0-47.0); HEMOGLOBIN 11.8 g/dL (12.0-16.0); LYMPHOCYTES # (AUTO) 1.1 X10^3/uL (1.3-2.9); LYMPHOCYTES % (AUTO) 16.5 % (21.0-51.0); MEAN CORPUSCULAR HEMOGLOBIN 32.8 pg (27.0-34.0); MEAN CORPUSCULAR HGB CONC 33.9 g/dL (33.0-35.0); MEAN CORPUSCULAR VOLUME 96.9 fL (80.0-100.0); MEAN PLATELET VOLUME 9.4 fL (7.4-11.0); MONOCYTES # (AUTO) 0.5 x10^3/uL (0.3-0.8); MONOCYTES % (AUTO) 8.2 % (0.0-13.0); NEUTROPHILS # (AUTO) 4.7 x10^3/uL (2.2-4.8); NEUTROPHILS % (AUTO) 72.5 % (42.0-75.0); RED BLOOD COUNT 3.58 X10^6/uL (3.5-5.4); RED CELL DISTRIBUTION WIDTH 14.6 % (11.6-16.5); WHITE BLOOD COUNT 6.5 X10^3/uL (3.6-10.0)
[2021-08-30 09:26] LABS: BLOOD UREA NITROGEN 6 mg/dL (7-18); CARBON DIOXIDE 30.2 mmol/L (21-32); CHLORIDE 104 mmol/L (98-107); CREATININE 0.57 mg/dL (0.55-1.02); SODIUM 138 mmol/L (136-145); eGFR NON BLACK RACES > 60 (>60)
[2021-08-30 10:11] LABS: BAND NEUTROPHILS % 1 % (0-10); BASOPHILS % (MANUAL) 1 % (0-1)
[2021-08-30 10:12] LABS: PLATELET MORPHOLOGY COMMENT NORMAL (NORMAL)
--- NOTE | 2021-08-30 12:06 | PCM.PROG ---
Progress Note Progress Note for Day of Date of Exam: 08/30/21 Subjective Subjective: Patient seen at bedside, no events overnight. She was noted to have some drainage from her wound this morning. It was sent for culture. She states she feels good, slowly improving with her strength. She has been working with PT, able to use the commode with assistance. At home she was using the rollator to move around. She was able to transfer from bed. Her appetite is getting better. Plan: morning labs ordered, follow wound Cx. Patient has been afebrile and completed 10 days of IV Zosyn. Dressing change as per Dr. Palma. Will have patient use the walker today and see how well she can transfer. Continue PT/OT as tolerated. Continue home medications. If patient able to transfer independently then can consider home health. Patient does have son-in-law who's in the same house with her to help with meals. CM working on placement, referrals pending. Past Medical Family Social History Past Med/Fam/Surg Hx: No changes since H&P Allergies: Allergies ciprofloxacin [From Cipro] Allergy (Verified 08/15/21 12:57) aspirin Adverse Reaction (Verified 08/15/21 01:19) NSAIDS (Non-Steroidal Anti-Inflamma Adverse Reaction (Verified 08/15/21 01:19) Sulfa (Sulfonamide Antibiotics) [SULFA] Adverse Reaction (Verified 08/15/21 01:19) Review of Systems ROS: No change since H&P Vital Signs and I&O's Vital Signs: Temperature 97.4 F Pulse Rate [Right] 91 Pulse Rate 85 Respiratory Rate 22 Blood Pressure [Left Arm] 158/76 Blood Pressure [Right Arm] 128/63 Blood Pressure 101/56 O2 Sat by Pulse Oximetry 95 Intake and Output: Intake & Output 08/27/21 08/28/21 08/29/21 08/30/21 23:59 23:59 23:59 23:59 Intake Total 21250 / 1770 790 / 790 120 / 120 Output Total 480 / 480 Balance 2125 / 1770 310 / 310 120 / 120 Physical Exam Oriented: Normal Eyes: Normal Ear: Normal Nose: Normal Throat: Normal Respiratory: Normal Cardiovascular: Normal Auscultation: Bowel Sounds: Normal Tenderness: Normal and Other (incision wound with some serosanguinous drainage , no surrounding erythema, non-tender, soft ) Skin: Normal Musculoskeletal: Back:Lumbar Psychiatric: Normal Mood Description: Calm Affect: Normal Speech Pattern: Clear and Appropriate Laboratory and Diagnostics Result Diagrams: 08/30/21 09:08 08/30/21 09:08 Labs: 08/30/21 06:30 Incision Wound Gram Stain - Final 08/15/21 14:25 Abdomen Wound Gram Stain - Final 08/15/21 14:25 Abdomen Wound Culture - Final Enterobacter Aerogenes 08/15/21 14:25 Abdomen Wound Culture - Final Pseudomonas Aeruginosa Laboratory WBC 6.5 X10^3/uL (3.6-10.0) 08/30/21 09:08 RBC 3.58 X10^6/uL (3.5-5.4) 08/30/21 09:08 Hgb 11.8 g/dL (12.0-16.0) L 08/30/21 09:08 Hct 34.7 % (36.0-47.0) L 08/30/21 09:08 MCV 96.9 fL (80.0-100.0) 08/30/21 09:08 MCH 32.8 pg (27.0-34.0) 08/30/21 09:08 MCHC 33.9 g/dL (33.0-35.0) 08/30/21 09:08 RDW 14.6 % (11.6-16.5) 08/30/21 09:08 Plt Count 350 X10^3/uL (150.0-450.0) 08/30/21 09:08 Plt Count Comment Adequate (ADEQUATE) 08/30/21 09:08 MPV 9.4 fL (7.4-11.0) 08/30/21 09:08 Neut % (Auto) 72.5 % (42.0-75.0) 08/30/21 09:08 Lymph % (Auto) 16.5 % (21.0-51.0) L 08/30/21 09:08 [place] % (Auto) 8.2 % (0.0-13.0) 08/30/21 09:08 Eos % (Auto) 1.0 % (0.9-2.9) 08/30/21 09:08 Baso % (Auto) 1.8 % (0.2-1.0) H 08/30/21 09:08 Neut # (Auto) 4.7 x10^3/uL (2.2-4.8) 08/30/21 09:08 Lymph # (Auto) 1.1 X10^3/uL (1.3-2.9) L 08/30/21 09:08 [place] # (Auto) 0.5 x10^3/uL (0.3-0.8) 08/30/21 09:08 Eos # (Auto) 0.1 x10^3/uL (0.0-0.2) 08/30/21 09:08 Baso # (Auto) 0.1 X10^3/uL (0.0-0.1) 08/30/21 09:08 Absolute Nucleated RBC 0.0 /100WBC 08/30/21 09:08 Total Counted 100 08/30/21 09:08 Neutrophils % (Manual) 77 % (39-76) H 08/30/21 09:08 Band Neutrophils % 1 % (0-10) 08/30/21 09:08 Lymphocytes % (Manual) 14 % (13-43) 08/30/21 09:08 Monocytes % (Manual) 5 % (4-9) 08/30/21 09:08 Eosinophils % (Manual) 2 % (0-6) 08/30/21 09:08 Basophils % (Manual) 1 % (0-1) 08/30/21 09:08 Metamyelocytes % 2 08/23/21 05:39 Myelocytes % 1 08/20/21 05:38 Promyelocytes % 1 08/16/21 06:00 Plt Morphology Comment Normal (NORMAL) 08/30/21 09:08 RBC Morphology Normal (NORMAL) 08/30/21 09:08 Target Cells Slight A 08/16/21 06:00 Stomatocytes Slight A 08/16/21 06:00 PT 12.3 SECONDS (11.8-14.3) 08/15/21 08:46 INR Target Range - 08/15/21 08:46 INR 0.96 (0.8-1.3) 08/15/21 08:46 Sample Site Rrad 08/16/21 08:00 ABG pH 7.300 (7.35-7.45) L 08/16/21 08:00 ABG pCO2 61.0 mmHg (35.0-45.0) H* 08/16/21 08:00 ABG pO2 63.0 mmHg (80.0-100.0) L 08/16/21 08:00 ABG HCO3 30.0 mmol/L (22-26) H 08/16/21 08:00 ABG O2 Saturation 89.0 % (90-100) L 08/16/21 08:00 ABG Base Excess 2.2 mmol/L (-2.0-2.0) H 08/16/21 08:00 Mac Test Pos 08/16/21 08:00 A-a Gradient 217.0 mmHg 08/16/21 08:00 FiO2 50.0 08/16/21 08:00 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, 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 08/16/21 08:00 Sodium 138 mmol/L (136-145) 08/30/21 09:08 Corrected Sodium TNP 08/30/21 09:08 Potassium 4.3 mmol/L (3.5-5.1) 08/30/21 09:08 Chloride 104 mmol/L (98-107) 08/30/21 09:08 Carbon Dioxide 30.2 mmol/L (21-32) 08/30/21 09:08 BUN 6 mg/dL (7-18) L 08/30/21 09:08 Creatinine 0.57 mg/dL (0.55-1.02) 08/30/21 09:08 Est GFR (MDRD) Af Amer > 60 (>60) 08/30/21 09:08 Est GFR (MDRD) Non-Af > 60 (>60) 08/30/21 09:08 Glucose 99 mg/dL (65-99) 08/30/21 09:08 Lactic Acid 1.0 mmol/L (0.4-2.0) 08/17/21 09:33 Calcium 8.0 mg/dL (8.5-10.1) L 08/30/21 09:08 Corrected Calcium 9.3 mg/dL (8.5-10.1) 08/26/21 05:45 Magnesium 1.9 mg/dL (1.7-2.9) 08/26/21 05:45 Total Bilirubin 0.20 mg/dL (0.2-1.0) 08/26/21 05:45 AST 25 Units/L (15-37) 08/26/21 05:45 ALT 36 Units/L (12-78) 08/26/21 05:45 Alkaline Phosphatase 144 Units/L (46-116) H 08/26/21 05:45 Ammonia < 10 umol/L (11-32) L 08/15/21 11:39 Total Protein 5.4 g/dL (6.4-8.2) L 08/26/21 05:45 Albumin 2.2 g/dL (3.4-5.0) L 08/26/21 05:45 Globulin 3.2 g/dL (2.5-4.5) 08/26/21 05:45 Albumin/Globulin Ratio 0.7 Ratio (1.1-2.1) L 08/26/21 05:45 Urine Opiates Screen Negative (NEG=<300) 08/15/21 18:23 Urine Methadone Screen Negative (NEG=<300) 08/15/21 18:23 Ur Barbiturates Screen Positive (NEG=<200) A 08/15/21 18:23 Ur Phencyclidine Scrn Negative (NEG=<25) 08/15/21 18:23 Ur Amphetamines Screen Negative (NEG=<1000) 08/15/21 18:23 U Benzodiazepines Scrn Negative (NEG=<200) 08/15/21 18:23 Urine Cocaine Screen Negative (NEG=<300) 08/15/21 18:23 U Marijuana (THC) Screen Positive (NEG=<50) A 08/15/21 18:23 SARS CoV-2 RNA Rapid LAVERN Negative (NEGATIVE) 08/17/21 22:30 Tissue Pathology To follow 08/15/21 14:25 Plan (1) Pneumonia: Status: Acute Qualifiers: Laterality: bilateral Lung location: lower lobe of lung Pneumonia type: due to unspecified organism Qualified Code(s): J18.9 - Pneumonia, unspecified organism (2) Appendicitis with abscess: Status: Resolved (3) SBO (small bowel obstruction): Status: Acute (4) Hypokalemia: Status: Acute (5) Chronic pain: Status: Chronic Qualifiers: Chronic pain type: other chronic pain Qualified Code(s): G89.29 - Other chronic pain (6) Schizophrenia: Status: Chronic Qualifiers: Schizophrenia type: unspecified Qualified Code(s): F20.9 - Schizophrenia, unspecified (7) Anxiety: Status: Chronic
--- NOTE | 2021-08-30 13:51 | DR.PROGNOT ---
Hospital Progress Notes - Progress Note for Day of: Progress Note Date: 08/30/21 - Chief Complaint Chief Complaint: no changes. doing fairly well . alert and cooperative . tolerating diet well ( appetite is poor ).. having normal bowel movements . normal CBC , BUN/CREAT. afebrile . small open area 1 x 2 cm upper incision ..no infection .. started on PT ao ambulate with a walker . - Past Medical Family Social History Past Med/Fam/Surg Hx: No changes since H&P Allergies: Allergies ciprofloxacin [From Cipro] Allergy (Verified 08/15/21 12:57) aspirin Adverse Reaction (Verified 08/15/21 01:19) NSAIDS (Non-Steroidal Anti-Inflamma Adverse Reaction (Verified 08/15/21 01:19) Sulfa (Sulfonamide Antibiotics) [SULFA] Adverse Reaction (Verified 08/15/21 01:19) - Review Of Systems ROS: No change since H&P - Vital Signs Vital Signs: Temperature 97.6 F Pulse Rate [Right] 101 Pulse Rate 85 Respiratory Rate 16 Blood Pressure [Left Arm] 145/80 Blood Pressure [Right Arm] 128/63 Blood Pressure 101/56 O2 Sat by Pulse Oximetry 96 - Physical Exam Oriented: Normal Eyes: Normal Ear: Normal Nose: Normal Throat: Normal Respiratory: Normal Cardiovascular: Normal : Normal GI:Auscultation: Normal GI:Palpation: Normal GI: Tenderness: Normal, Other (incision wound with some serosanguinous drainage , no surrounding erythema, non-tender, soft) Skin: Normal Musculoskeletal: Back:Lumbar Psychiatric: Normal Mood Description: Calm Affect: Normal Speech Pattern: Clear, Appropriate - Laboratory and Diagnostics Result Diagrams: 08/30/21 09:08 08/30/21 09:08 Labs: 08/30/21 06:30 Incision Wound Gram Stain - Final 08/15/21 14:25 Abdomen Wound Gram Stain - Final 08/15/21 14:25 Abdomen Wound Culture - Final Enterobacter Aerogenes 08/15/21 14:25 Abdomen Wound Culture - Final Pseudomonas Aeruginosa Laboratory WBC 6.5 X10^3/uL (3.6-10.0) 08/30/21 09:08 RBC 3.58 X10^6/uL (3.5-5.4) 08/30/21 09:08 Hgb 11.8 g/dL (12.0-16.0) L 08/30/21 09:08 Hct 34.7 % (36.0-47.0) L 08/30/21 09:08 MCV 96.9 fL (80.0-100.0) 08/30/21 09:08 MCH 32.8 pg (27.0-34.0) 08/30/21 09:08 MCHC 33.9 g/dL (33.0-35.0) 08/30/21 09:08 RDW 14.6 % (11.6-16.5) 08/30/21 09:08 Plt Count 350 X10^3/uL (150.0-450.0) 08/30/21 09:08 Plt Count Comment Adequate (ADEQUATE) 08/30/21 09:08 MPV 9.4 fL (7.4-11.0) 08/30/21 09:08 Neut % (Auto) 72.5 % (42.0-75.0) 08/30/21 09:08 Lymph % (Auto) 16.5 % (21.0-51.0) L 08/30/21 09:08 [place] % (Auto) 8.2 % (0.0-13.0) 08/30/21 09:08 Eos % (Auto) 1.0 % (0.9-2.9) 08/30/21 09:08 Baso % (Auto) 1.8 % (0.2-1.0) H 08/30/21 09:08 Neut # (Auto) 4.7 x10^3/uL (2.2-4.8) 08/30/21 09:08 Lymph # (Auto) 1.1 X10^3/uL (1.3-2.9) L 08/30/21 09:08 [place] # (Auto) 0.5 x10^3/uL (0.3-0.8) 08/30/21 09:08 Eos # (Auto) 0.1 x10^3/uL (0.0-0.2) 08/30/21 09:08 Baso # (Auto) 0.1 X10^3/uL (0.0-0.1) 08/30/21 09:08 Absolute Nucleated RBC 0.0 /100WBC 08/30/21 09:08 Total Counted 100 08/30/21 09:08 Neutrophils % (Manual) 77 % (39-76) H 08/30/21 09:08 Band Neutrophils % 1 % (0-10) 08/30/21 09:08 Lymphocytes % (Manual) 14 % (13-43) 08/30/21 09:08 Monocytes % (Manual) 5 % (4-9) 08/30/21 09:08 Eosinophils % (Manual) 2 % (0-6) 08/30/21 09:08 Basophils % (Manual) 1 % (0-1) 08/30/21 09:08 Metamyelocytes % 2 08/23/21 05:39 Myelocytes % 1 08/20/21 05:38 Promyelocytes % 1 08/16/21 06:00 Plt Morphology Comment Normal (NORMAL) 08/30/21 09:08 RBC Morphology Normal (NORMAL) 08/30/21 09:08 Target Cells Slight A 08/16/21 06:00 Stomatocytes Slight A 08/16/21 06:00 PT 12.3 SECONDS (11.8-14.3) 08/15/21 08:46 INR Target Range - 08/15/21 08:46 INR 0.96 (0.8-1.3) 08/15/21 08:46 Sample Site Rrad 08/16/21 08:00 ABG pH 7.300 (7.35-7.45) L 08/16/21 08:00 ABG pCO2 61.0 mmHg (35.0-45.0) H* 08/16/21 08:00 ABG pO2 63.0 mmHg (80.0-100.0) L 08/16/21 08:00 ABG HCO3 30.0 mmol/L (22-26) H 08/16/21 08:00 ABG O2 Saturation 89.0 % (90-100) L 08/16/21 08:00 ABG Base Excess 2.2 mmol/L (-2.0-2.0) H 08/16/21 08:00 Mac Test Pos 08/16/21 08:00 A-a Gradient 217.0 mmHg 08/16/21 08:00 FiO2 50.0 08/16/21 08:00 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, hw [employer] 08/16/21 08:00 Sodium 138 mmol/L (136-145) 08/30/21 09:08 Corrected Sodium TNP 08/30/21 09:08 Potassium 4.3 mmol/L (3.5-5.1) 08/30/21 09:08 Chloride 104 mmol/L (98-107) 08/30/21 09:08 Carbon Dioxide 30.2 mmol/L (21-32) 08/30/21 09:08 BUN 6 mg/dL (7-18) L 08/30/21 09:08 Creatinine 0.57 mg/dL (0.55-1.02) 08/30/21 09:08 Est GFR (MDRD) Af Amer > 60 (>60) 08/30/21 09:08 Est GFR (MDRD) Non-Af > 60 (>60) 08/30/21 09:08 Glucose 99 mg/dL (65-99) 08/30/21 09:08 Lactic Acid 1.0 mmol/L (0.4-2.0) 08/17/21 09:33 Calcium 8.0 mg/dL (8.5-10.1) L 08/30/21 09:08 Corrected Calcium 9.3 mg/dL (8.5-10.1) 08/26/21 05:45 Magnesium 1.9 mg/dL (1.7-2.9) 08/26/21 05:45 Total Bilirubin 0.20 mg/dL (0.2-1.0) 08/26/21 05:45 AST 25 Units/L (15-37) 08/26/21 05:45 ALT 36 Units/L (12-78) 08/26/21 05:45 Alkaline Phosphatase 144 Units/L (46-116) H 08/26/21 05:45 Ammonia < 10 umol/L (11-32) L 08/15/21 11:39 Total Protein 5.4 g/dL (6.4-8.2) L 08/26/21 05:45 Albumin 2.2 g/dL (3.4-5.0) L 08/26/21 05:45 Globulin 3.2 g/dL (2.5-4.5) 08/26/21 05:45 Albumin/Globulin Ratio 0.7 Ratio (1.1-2.1) L 08/26/21 05:45 Urine Opiates Screen Negative (NEG=<300) 08/15/21 18:23 Urine Methadone Screen Negative (NEG=<300) 08/15/21 18:23 Ur Barbiturates Screen Positive (NEG=<200) A 08/15/21 18:23 Ur Phencyclidine Scrn Negative (NEG=<25) 08/15/21 18:23 Ur Amphetamines Screen Negative (NEG=<1000) 08/15/21 18:23 U Benzodiazepines Scrn Negative (NEG=<200) 08/15/21 18:23 Urine Cocaine Screen Negative (NEG=<300) 08/15/21 18:23 U Marijuana (THC) Screen Positive (NEG=<50) A 08/15/21 18:23 SARS CoV-2 RNA Rapid LAVERN Negative (NEGATIVE) 08/17/21 22:30 Tissue Pathology To follow 08/15/21 14:25 - Assessment and Plan 1: s/p laparotomy ,. depression , anxiety . Schizophrenia . PO agitation and confusion had resolved . same post operative care ,ambulation with assistance. supportive bj and placement when bed is available .. .. - Problem Patient Problems: Patient Problems Pneumonia (Acute) J18.9 Chronic pain (Chronic) G89.29 Anxiety (Chronic) F41.9 Schizophrenia (Chronic) F20.9 Hypokalemia (Acute) E87.6 SBO (small bowel obstruction) (Acute) K56.609 Appendicitis with abscess (Resolved) K35.33
[2021-08-30] MEDS: PULMICORT NEB TX 0.5 MG NEB SCH ×3 (16:21→21:51)
[2021-08-30] MEDS: DUONEB 0.5 MG/3 MG (3 mL) NEB SCH ×3 (16:21→21:51)
[2021-08-30] MEDS: MYSOLINE TAB 250 MG PO SCH (21:11)
[2021-08-31] MEDS: DUONEB 0.5 MG/3 MG (3 mL) NEB SCH ×3 (00:13→09:27)
[2021-08-31] MEDS: NORCO 5/325 MG TAB PO PRN ×3 (00:23→12:12)
--- NOTE | 2021-08-31 08:33 | DR.PROGNOT ---
Hospital Progress Notes - Progress Note for Day of: Progress Note Date: 08/31/21 - Chief Complaint Chief Complaint: no changes. doing fairly well . alert and cooperative . tolerating diet well ( appetite is poor ).. having normal bowel movements . normal CBC , BUN/CREAT. afebrile . small open area 1 x 2 cm upper incision ..no infection .. started on PT to ambulate with a walker . - Past Medical Family Social History Past Med/Fam/Surg Hx: No changes since H&P Allergies: Allergies ciprofloxacin [From Cipro] Allergy (Verified 08/15/21 12:57) aspirin Adverse Reaction (Verified 08/15/21 01:19) NSAIDS (Non-Steroidal Anti-Inflamma Adverse Reaction (Verified 08/15/21 01:19) Sulfa (Sulfonamide Antibiotics) [SULFA] Adverse Reaction (Verified 08/15/21 01:19) - Review Of Systems ROS: No change since H&P - Vital Signs Vital Signs: Temperature 98.4 F Pulse Rate [Right] 72 Pulse Rate 85 Respiratory Rate 18 Blood Pressure [Left Arm] 147/75 Blood Pressure [Right Arm] 128/63 Blood Pressure 101/56 O2 Sat by Pulse Oximetry 100 - Physical Exam Oriented: Normal (alert. cooperative , ) Eyes: Normal Ear: Normal Nose: Normal Throat: Normal Respiratory: Normal Cardiovascular: Normal : Normal GI:Auscultation: Normal GI:Palpation: Normal GI: Tenderness: Normal, Other (incision wound with some serosanguinous drainage , no surrounding erythema, non-tender, soft) Skin: Normal Musculoskeletal: Back:Lumbar Psychiatric: Normal Mood Description: Calm Affect: Normal Speech Pattern: Clear, Appropriate - Laboratory and Diagnostics Result Diagrams: 08/30/21 09:08 08/30/21 09:08 Labs: 08/30/21 06:30 Incision Wound Gram Stain - Final 08/15/21 14:25 Abdomen Wound Gram Stain - Final 08/15/21 14:25 Abdomen Wound Culture - Final Enterobacter Aerogenes 08/15/21 14:25 Abdomen Wound Culture - Final Pseudomonas Aeruginosa Laboratory WBC 6.5 X10^3/uL (3.6-10.0) 08/30/21 09:08 RBC 3.58 X10^6/uL (3.5-5.4) 08/30/21 09:08 Hgb 11.8 g/dL (12.0-16.0) L 08/30/21 09:08 Hct 34.7 % (36.0-47.0) L 08/30/21 09:08 MCV 96.9 fL (80.0-100.0) 08/30/21 09:08 MCH 32.8 pg (27.0-34.0) 08/30/21 09:08 MCHC 33.9 g/dL (33.0-35.0) 08/30/21 09:08 RDW 14.6 % (11.6-16.5) 08/30/21 09:08 Plt Count 350 X10^3/uL (150.0-450.0) 08/30/21 09:08 Plt Count Comment Adequate (ADEQUATE) 08/30/21 09:08 MPV 9.4 fL (7.4-11.0) 08/30/21 09:08 Neut % (Auto) 72.5 % (42.0-75.0) 08/30/21 09:08 Lymph % (Auto) 16.5 % (21.0-51.0) L 08/30/21 09:08 [place] % (Auto) 8.2 % (0.0-13.0) 08/30/21 09:08 Eos % (Auto) 1.0 % (0.9-2.9) 08/30/21 09:08 Baso % (Auto) 1.8 % (0.2-1.0) H 08/30/21 09:08 Neut # (Auto) 4.7 x10^3/uL (2.2-4.8) 08/30/21 09:08 Lymph # (Auto) 1.1 X10^3/uL (1.3-2.9) L 08/30/21 09:08 [place] # (Auto) 0.5 x10^3/uL (0.3-0.8) 08/30/21 09:08 Eos # (Auto) 0.1 x10^3/uL (0.0-0.2) 08/30/21 09:08 Baso # (Auto) 0.1 X10^3/uL (0.0-0.1) 08/30/21 09:08 Absolute Nucleated RBC 0.0 /100WBC 08/30/21 09:08 Total Counted 100 02/11/22 09:08 Neutrophils % (Manual) 77 % (39-76) H 08/30/21 09:08 Band Neutrophils % 1 % (0-10) 08/30/21 09:08 Lymphocytes % (Manual) 14 % (13-43) 08/30/21 09:08 Monocytes % (Manual) 5 % (4-9) 08/30/21 09:08 Eosinophils % (Manual) 2 % (0-6) 08/30/21 09:08 Basophils % (Manual) 1 % (0-1) 08/30/21 09:08 Metamyelocytes % 2 08/23/21 05:39 Myelocytes % 1 08/20/21 05:38 Promyelocytes % 1 08/16/21 06:00 Plt Morphology Comment Normal (NORMAL) 08/30/21 09:08 RBC Morphology Normal (NORMAL) 08/30/21 09:08 Target Cells Slight A 08/16/21 06:00 Stomatocytes Slight A 08/16/21 06:00 PT 12.3 SECONDS (11.8-14.3) 08/15/21 08:46 INR Target Range - 08/15/21 08:46 INR 0.96 (0.8-1.3) 08/15/21 08:46 Sample Site Rrad 08/16/21 08:00 ABG pH 7.300 (7.35-7.45) L 08/16/21 08:00 ABG pCO2 61.0 mmHg (35.0-45.0) H* 08/16/21 08:00 ABG pO2 63.0 mmHg (80.0-100.0) L 08/16/21 08:00 ABG HCO3 30.0 mmol/L (22-26) H 08/16/21 08:00 ABG O2 Saturation 89.0 % (90-100) L 08/16/21 08:00 ABG Base Excess 2.2 mmol/L (-2.0-2.0) H 08/16/21 08:00 Mac Test Pos 08/16/21 08:00 A-a Gradient 217.0 mmHg 08/16/21 08:00 FiO2 50.0 08/16/21 08:00 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, [facility] medical services coordinator 08/16/21 08:00 Sodium 138 mmol/L (136-145) 08/30/21 09:08 Corrected Sodium TNP 08/30/21 09:08 Potassium 4.3 mmol/L (3.5-5.1) 08/30/21 09:08 Chloride 104 mmol/L (98-107) 08/30/21 09:08 Carbon Dioxide 30.2 mmol/L (21-32) 08/30/21 09:08 BUN 6 mg/dL (7-18) L 08/30/21 09:08 Creatinine 0.57 mg/dL (0.55-1.02) 08/30/21 09:08 Est GFR (MDRD) Af Amer > 60 (>60) 08/30/21 09:08 Est GFR (MDRD) Non-Af > 60 (>60) 08/30/21 09:08 Glucose 99 mg/dL (65-99) 08/30/21 09:08 Lactic Acid 1.0 mmol/L (0.4-2.0) 08/17/21 09:33 Calcium 8.0 mg/dL (8.5-10.1) L 08/30/21 09:08 Corrected Calcium 9.3 mg/dL (8.5-10.1) 08/26/21 05:45 Magnesium 1.9 mg/dL (1.7-2.9) 08/26/21 05:45 Total Bilirubin 0.20 mg/dL (0.2-1.0) 08/26/21 05:45 AST 25 Units/L (15-37) 08/26/21 05:45 ALT 36 Units/L (12-78) 08/26/21 05:45 Alkaline Phosphatase 144 Units/L (46-116) H 08/26/21 05:45 Ammonia < 10 umol/L (11-32) L 08/15/21 11:39 Total Protein 5.4 g/dL (6.4-8.2) L 08/26/21 05:45 Albumin 2.2 g/dL (3.4-5.0) L 08/26/21 05:45 Globulin 3.2 g/dL (2.5-4.5) 08/26/21 05:45 Albumin/Globulin Ratio 0.7 Ratio (1.1-2.1) L 08/26/21 05:45 Urine Opiates Screen Negative (NEG=<300) 08/15/21 18:23 Urine Methadone Screen Negative (NEG=<300) 08/15/21 18:23 Ur Barbiturates Screen Positive (NEG=<200) A 08/15/21 18:23 Ur Phencyclidine Scrn Negative (NEG=<25) 08/15/21 18:23 Ur Amphetamines Screen Negative (NEG=<1000) 08/15/21 18:23 U Benzodiazepines Scrn Negative (NEG=<200) 08/15/21 18:23 Urine Cocaine Screen Negative (NEG=<300) 08/15/21 18:23 U Marijuana (THC) Screen Positive (NEG=<50) A 08/15/21 18:23 SARS CoV-2 RNA Rapid LAVERN Negative (NEGATIVE) 08/17/21 22:30 Tissue Pathology To follow 08/15/21 14:25 - Assessment and Plan 1: s/p laparotomy ,. PO agitation and confusion had completely resolved . same post operative care ,ambulation with assistance. supportive care and placement when bed is available or go home if able to ambulate and be at least partially independent .. .. - Problem Patient Problems: Patient Problems Pneumonia (Acute) J18.9 Chronic pain (Chronic) G89.29 Anxiety (Chronic) F41.9 Schizophrenia (Chronic) F20.9 Hypokalemia (Acute) E87.6 SBO (small bowel obstruction) (Acute) K56.609 Appendicitis with abscess (Resolved) K35.33
[2021-08-31] MEDS ORDERED: LEXAPRO ONE (08:46)
[2021-08-31] MEDS: NICOTINE PATCH TD SCH ×2 (08:48→09:01)
[2021-08-31] MEDS: COGENTIN TAB 1 MG PO SCH (08:49)
[2021-08-31] MEDS: KLONOPIN TAB 0.5 MG PO SCH (08:50)
[2021-08-31] MEDS: GEODON PO SCH (08:50)
[2021-08-31] MEDS: PROTONIX TAB 40 MG PO SCH (08:50)
[2021-08-31] MEDS: LEXAPRO PO SCH (08:51)
[2021-08-31] MEDS: LOVENOX INJ 40 MG SYR SC SCH (08:51)
[2021-08-31] MEDS: PULMICORT NEB TX 0.5 MG NEB SCH (09:27)
[2021-08-31 10:07] VITALS: BP 185/95
== END 2021-08-31 12:45 | disposition home health service (06) | DRG 338 ==
LOC: MED/SURG 00:30
PROVIDERS: ADMIT Surgery; ATTEND Surgery